=== PATIENT | female | born 1955 | race Caucasian/White ===

== ENCOUNTER 2016-11-10 17:53 | Emergency (ER) | payer BC ==
[~2016-11-10 17:53] MED LIST: CZR50 PO; FURO-85 PO; LABE300T PO; NXM/40 PO; POTA10CA28 PO
[2016-11-14] MEDS ORDERED: ZNT150 PO (17:39)
[2016-11-14] MEDS ORDERED: ALL180 PO (17:39)
[2017-03-09] MEDS ORDERED: AMLO-110 PO (09:15)
[2017-03-09] MEDS ORDERED: HYOS1TAB PO (09:15)
== END 2016-11-10 18:00 | disposition left against medical advice (07) ==
LOC: C.EDB 17:54
DX: R10.9 Unspecified abdominal pain (principal)

== ENCOUNTER 2016-11-11 10:44 | Inpatient (IN) | payer BC ==
[~2016-11-11] VITALS: Ht 170.2 cm; Wt 103.4 kg
--- NOTE | 2016-11-11 11:15 | EMERGENCY ROOM VISIT NOTE ---
History Report prepared by David: Alessandro Clark Under the Supervision of: Dr. Steffany Gomes D.O. First contact with patient: 10:53 Chief Complaint: ABDOMINAL PAIN Stated Complaint: STOMACH PAIN History of Present Illness The patient is a 61 year old female who presents to the Emergency Room with complaints of persistent abdominal pain beginning 3 days ago. The patient was here yesterday but left before being seen. She notes she has had hernias before , and that her current pain feels similar. She reports having surgery for small bowel obstruction by Dr. Rincno, but it was noted there were no obstruction during surgery. Her gallbladder was removed at this time. She notes the next day , she required emergency surgery because of bowel issues that occurred during surgery from the previous day. The patient notes that about 1 year later, she had abdominal surgery for hernias. She states she still has her appendix. The patient denies having any fevers, chills, nausea, vomiting, diarrhea, or leg cramping or swelling. She admits to some shortness of breath with walking because she feels pressure in her abdomen. She notes she feels her abdomen is distended. The patient has been having normal bowel movements recently. Source of History: patient Onset: 3 days ago Position: abdomen Quality: other (abdominal pain) Timing: other (persistent) Associated Symptoms: + SOB, No chills, No diarrhea, No fevers, No nausea, No vomiting Note: Patient also denies leg cramping or swelling. Review of Systems See HPI for pertinent positives & negatives. A total of 10 systems reviewed and were otherwise negative. Past Medical & Surgical Medical Problems: (1) Diverticulosis (2) ENTERITIS. PARTIAL SMALL BOMEL OBSTRUCTION (3) GERD (gastroesophageal reflux disease) (4) Herpes zoster (5) Hyperlipidemia (6) Hypertension (7) Incisional hernia (8) Partial small bowel obstruction (9) Vocal cord nodule Surgical Problems: (1) History of colonoscopy Family History Heart disease Social History Smoking Status: Never Smoker Alcohol Use: none Drug Use: none Marital Status: Housing Status: lives with significant other Occupation Status: employed Current/Historical Medications Scheduled Esomeprazole Magnesium (Nexium), 40 MG PO QAM Furosemide (Lasix), 40 MG PO QAM Labetalol (Normodyne), 300 MG PO BID Losartan Potassium (Losartan Potassium), 50 MG PO BID Potassium Chloride (Micro-K Ext Rel), 10 MEQ PO BID Allergies Coded Allergies: Morphine (Verified Allergy, Mild, HIVES, 11/11/16) Physical Exam Vital Signs Date Time Temp Pulse Resp B/P Pulse Ox O2 Delivery O2 Flow Rate FiO2 11/11/16 15:33 66 16 213/115 100 Nasal Cannula 2.0 11/11/16 15:00 69 25 199/91 100 Nasal Cannula 2.0 11/11/16 14:48 70 17 220/120 97 Nasal Cannula 2.0 11/11/16 14:41 63 15 205/91 97 Nasal Cannula 2.0 11/11/16 14:07 70 25 205/105 99 Nasal Cannula 2.0 11/11/16 13:51 64 11/11/16 13:47 64 11/11/16 13:46 68 18 223/121 87 Room Air 11/11/16 13:31 211/85 11/11/16 13:30 66 20 224/94 90 Room Air 11/11/16 10:50 36.5 72 18 126/76 97 Room Air Physical Exam HEENT: Head - normocephalic and atraumatic Pupils are equal, round, and reactive to light. Extraocular eye muscles are intact, and sclera are anicteric. Nose - moist nasal mucosa without discharge. Mouth - moist buccal mucosa. Oropharynx is nonerythematous and there is no tonsillar exudate or edema noted. Neck: Supple; no JVD, nuchal rigidity, cervical lymphadenopathy. Heart: Regular rate and rhythm. There is a normal S1 and S2 with no murmurs, clicks, or gallops appreciated. Lungs: Clear to auscultation bilaterally with no wheezes, rales, or rhonchi. Abdomen: Significant abdominal distension. Hypoactive bowel sounds. Significant tympany with percussion. Right and left upper quadrant tenderness to palpation, and epigastric tenderness to palpation. Extremities: No evidence of cyanosis, clubbing, or edema. There are easily palpable peripheral pulses. Skin: warm and dry with good turgor and no rashes. Medical Decision & Procedures ER Provider Diagnostic Interpretation: Radiology results as stated below per my review and the radiologist's interpretation: CHEST AND ABDOMEN 2 VIEWS FINDINGS: The lungs are clear. The heart is stable in size. No pleural effusions. No pneumothorax. Mild left deviation of the upper trachea favors an enlarged thyroid gland. No pneumoperitoneum. No pneumatosis. Prior cholecystectomy. No renal calculi. No dilated loops of bowel to suggest an obstruction. Multiple pelvic phleboliths are again noted. Moderate stool within the colon. IMPRESSION: 1. No acute process within the chest. 2. No evidence for bowel obstruction. 3. Moderate stool within the colon. Electronically signed by: Santiago Caldera M.D. 11/11/2016 11:56 AM Dictated Date/Time: 11/11/2016 11:53 AM ABDOMEN AND PELVIS CT WITH IV CONTRAST FINDINGS: Trace bilateral pleural effusions. No pneumoperitoneum. No pneumatosis. Small hiatus hernia. A few subcentimeter hypodense lesions within the liver which are too small to characterize. The largest lesion measures 6 mm within the left hepatic lobe. These remain stable. Cholecystectomy. The pancreas, spleen, right adrenal gland, and kidneys are unremarkable. Stable 12 mm nodule within the left adrenal gland. No retroperitoneal lymphadenopathy. There is a anterior abdominal wall mesh. A 2.1 cm fibroid at the uterine fundus, unchanged. The bladder is unremarkable. Trace pelvic free fluid. No retroperitoneal lymphadenopathy. Mild infiltration within the central mesentery. Multiple thickened loops of small bowel within the midabdomen. Borderline distended fluid-filled loops of proximal small bowel could be due to the interval is a low-grade partial small bowel obstruction. Normal appendix. Colonic diverticulosis. IMPRESSION: 1. Multiple thickened loops of small bowel seen within the midabdomen which is similar to the prior study. This is consistent with a nonspecific enteritis. There is associated infiltration of the mesentery. 2. A few loops of proximal small bowel are fluid-filled and slightly prominent which could be due to a low-grade partial small bowel obstruction from the thickened loops of small bowel. 3. Trace bilateral pleural effusions. 4. Additional findings as described above. Electronically signed by: Santiago Caldera M.D. 11/11/2016 1:00 PM Dictated Date/Time: 11/11/2016 12:55 PM Laboratory Results Test 11/11/16 11:05 11/11/16 11:18 11/11/16 15:31 11/11/16 15:35 Urine Color YELLOW Urine Appearance CLEAR (CLEAR) Urine pH 6.5 (4.5-7.5) Urine Specific Thorp 1.007 (1.000-1.030) Urine Protein NEG (NEG) Urine Glucose (UA) NEG (NEG) Urine Ketones NEG (NEG) Urine Occult Blood NEG (NEG) Urine Nitrite NEG (NEG) Urine Bilirubin NEG (NEG) Urine Urobilinogen NEG (NEG) Urine Leukocyte Esterase NEG (NEG) Total Bilirubin 0.3 mg/dl (0.2-1) Direct Bilirubin mg/dl (0-0.2) Aspartate Amino Transf (AST/SGOT) 42 U/L (15-37) Alanine Aminotransferase (ALT/SGPT) 55 U/L (12-78) Alkaline Phosphatase 98 U/L (45-117) Total Protein 7.0 gm/dl (6.4-8.2) Albumin 3.4 gm/dl (3.4-5.0) Chemistry Specimen Hemolysis Hepatitis C Antibody Screen NEG (NEG) Erythrocyte Sedimentation Rate 29 mm/hr (0-21) C-Reactive Protein 1.11 mg/dl (0-0.29) Laboratory results per my review. Medications Administered Medications (Trade) Dose Ordered Sig/Linda Route Start Time Stop Time Status Last Admin Dose Admin Hydromorphone HCl (Dilaudid Inj) 2 mg NOW STAT IV 11/11/16 12:17 11/11/16 12:18 DC 11/11/16 12:38 2 MG Ondansetron HCl 4 mg 4 mg NOW STAT IV 11/11/16 12:17 11/11/16 12:18 DC 11/11/16 12:36 4 MG Sodium Chloride (Nss 1000ml) 1,000 ml @ 200 mls/hr Q5H STAT IV 11/11/16 12:18 11/11/16 17:17 DC 11/11/16 12:36 200 MLS/HR Labetalol HCl 20 mg 20 mg NOW STAT IV 11/11/16 14:28 11/11/16 14:30 DC 11/11/16 14:47 10 MG Sodium Chloride 1,000 ml @ 75 mls/hr [id number] IV 11/11/16 15:30 12/11/16 15:29 11/12/16 04:32 75 MLS/HR Ondansetron HCl/ Dextrose (Zofran Inj/D5 50ml) 54 ml @ 200 mls/hr Q4H PRN IV 11/11/16 15:30 12/11/16 15:29 11/12/16 05:30 200 MLS/HR Hydralazine HCl (HydrALAZINE INJ) 10 mg Q6H PRN IV. 11/11/16 15:30 11/11/16 18:30 DC 11/11/16 15:44 10 MG Procedure Medications Ordered: 1217: Ordered Zofran Inj 4 mg IV, and Dilaudid Inj 2 mg IV. 1218: Ordered NSS 1,000 ml @ 200 mls/hr IV. 1428: Ordered Labetalol HCl 20 mg IV. ED Course 1101: Past medical records reviewed. The patient was evaluated in room C1B. A complete history and physical exam was performed. An IV lock was initiated and labs are drones above. The patient had an obstruction series as described above. 1216: The patient now wants something for pain. 1217: Ordered Zofran Inj 4 mg IV, and Dilaudid Inj 2 mg IV. She will go for CT scan of the abdomen/pelvis. 1218: Ordered NSS 1,000 ml @ 200 mls/hr IV. 1335: I updated the patient. She was diaphoretic, lightheaded, near-syncopal, and vomiting bile. I suggested that we place an NG tube, the patient refused stating that she had previous trauma to her larynx as a result of NG tube placement. 1420: Discussed the patient's case with Dr. Dominic Molina. The patient will be evaluated for further management. 1428: Ordered Labetalol HCl 10 mg IV. Medical Decision The patient is a 61 year old female who presents to the Emergency Room with complaints of persistent abdominal pain beginning 3 days ago. Differential Diagnoses: Small bowel obstruction, incarcerated abdominal wall hernia, colitis, gastritis, and pancreatitis. Laboratory Interpretations: Normal white count; stable H&H; glucose 151; normal renal function and LFTs; normal lipase; urine is normal. This is a 61-year-old female patient who presents to emergency department with increasing abdominal pain, distention and vomiting. The patient has a long history of previous intra-abdominal surgeries, hernias, and bowel obstructions. Her physical exam was consistent with an acute bowel obstruction. However, x- ray was unremarkable. CT scan showed some bowel wall thickening, mesenteric stranding, and early partial small bowel obstruction. The patient was significantly hypertensive after an episode of vomiting. She was given labetalol which lowered her blood pressure slightly. She did vomit this a.m. after taking her morning meds. I discussed the case with her PCP and he will evaluate for further care. Consults Time Called: 1320 Consulting Physician: Dr. Rincon, [facility] [place] Returned Call: Call not returned. Additional Consults: Time Called: 1355 Consulted Physician: Dr. Dominic Molina, [facility], [place] Returned Call: 1420 Additional Comments: Discussed the patient's case with Dr. Dominic Molina. The patient will be evaluated for further management. Impression Primary Impression: Partial small bowel obstruction Additional Impression: HTN (hypertension) Scribe Attestation The scribe's documentation has been prepared under my direction and personally reviewed by me in its entirety. I confirm that the note above accurately reflects all work, treatment, procedures, and medical decision making performed by me. Departure Information Dispostion Being Evaluated By Hospitalist Referrals Papi See M.D. (PCP) Patient Instructions [facility] Problem Qualifiers
[2016-11-11 11:40] LABS: URINE APPEARANCE CLEAR (CLEAR); URINE BILIRUBIN NEG (NEG); URINE COLOR YELLOW; URINE NITRITE NEG (NEG); URINE PH 6.5 (4.5-7.5); URINE SPECIFIC GRAVITY 1.007 (1.000-1.030); UROBILINOGEN NEG (NEG)
[2016-11-11 11:46] LABS: BASO % 0.3 %; BASO ABS # 0.02 K/uL (0-0.2); COMPLETE YES; EOS % 1.8 %; HEMATOCRIT 37.9 % (37-47); IG% 0.2 %; LYMPH ABS # 1.23 K/uL (1.2-3.4); MEAN CELL VOLUME 85.2 fL (80-100); MEAN CORPUSCULAR HEMOGLOBIN 28.3 pg (25-34); MEAN CORPUSCULAR HGB CONC 33.2 g/dl (32-36); MEAN PLATELET VOLUME 9.5 fL (7.4-10.4); MONO % 4.9 %; NEUT % 73.8 %; PLATELET COUNT 272 K/uL (130-400); RED BLOOD COUNT 4.45 M/uL (4.2-5.4); WHITE BLOOD COUNT 6.49 K/uL (4.8-10.8)
--- NOTE | 2016-11-11 11:57 | DIAGNOSTIC IMAGING REPORT ---
CHEST AND ABDOMEN 2 VIEWS HISTORY: Generalized abdominal pain. COMPARISON: Chest and abdominal series 03/21/2016. Abdomen and pelvis CT 03/21/2016. FINDINGS: The lungs are clear. The heart is stable in size. No pleural effusions. No pneumothorax. Mild left deviation of the upper trachea favors an enlarged thyroid gland. No pneumoperitoneum. No pneumatosis. Prior cholecystectomy. No renal calculi. No dilated loops of bowel to suggest an obstruction. Multiple pelvic phleboliths are again noted. Moderate stool within the colon. IMPRESSION: 1. No acute process within the chest. 2. No evidence for bowel obstruction. 3. Moderate stool within the colon. Electronically signed by: Santiago Caldera M.D. 11/11/2016 11:56 AM Dictated Date/Time: 11/11/2016 11:53 AM
[2016-11-11 12:01] LABS: MANUAL MICROSCOPIC REQUIRED? NO; REVIEW REQ? NO
[2016-11-11 12:02] LABS: ALKALINE PHOSPHATASE 98 U/L (45-117); ALT/SGPT 55 U/L (12-78); AST/SGOT 42 U/L (15-37); BLOOD UREA NITROGEN 12 mg/dl (7-18); BUN/CREATININE RATIO 15.6 (10-20); CALCIUM 8.9 mg/dl (8.5-10.1); CARBON DIOXIDE 28 mmol/L (21-32); CHLORIDE 107 mmol/L (98-107); CREATININE 0.79 mg/dl (0.60-1.20); GLUCOSE 151 mg/dl (70-99); POTASSIUM 4.6 mmol/L (3.5-5.1); SODIUM 142 mmol/L (136-145)
[2016-11-11] MEDS ORDERED: ONDANSETRON INJ 2 MG/ML 2 ML VIAL IV STA (12:17)
[2016-11-11] MEDS ORDERED: HYDROmorphone INJ 2 MG/ML SYR/VIAL IV STA (12:17)
[2016-11-11] MEDS ORDERED: SODIUM CHLORIDE 0.9% 1000ML 1,000 ML IV STA (12:18)
[2016-11-11] MEDS ORDERED: OPTIRAY 320 IV PRN (12:30)
--- NOTE | 2016-11-11 13:02 | DIAGNOSTIC IMAGING REPORT ---
ABDOMEN AND PELVIS CT WITH IV CONTRAST CT DOSE: 1240.00 mGy.cm HISTORY: Upper abdominal pain. TECHNIQUE: Multiaxial CT images of the abdomen and pelvis were performed following the use of intravenous contrast. COMPARISON STUDY: Abdomen and pelvis CT 03/21/2016. FINDINGS: Trace bilateral pleural effusions. No pneumoperitoneum. No pneumatosis. Small hiatus hernia. A few subcentimeter hypodense lesions within the liver which are too small to characterize. The largest lesion measures 6 mm within the left hepatic lobe. These remain stable. Cholecystectomy. The pancreas, spleen, right adrenal gland, and kidneys are unremarkable. Stable 12 mm nodule within the left adrenal gland. No retroperitoneal lymphadenopathy. There is a anterior abdominal wall mesh. A 2.1 cm fibroid at the uterine fundus, unchanged. The bladder is unremarkable. Trace pelvic free fluid. No retroperitoneal lymphadenopathy. Mild infiltration within the central mesentery. Multiple thickened loops of small bowel within the midabdomen. Borderline distended fluid-filled loops of proximal small bowel could be due to the interval is a low-grade partial small bowel obstruction. Normal appendix. Colonic diverticulosis. IMPRESSION: 1. Multiple thickened loops of small bowel seen within the midabdomen which is similar to the prior study. This is consistent with a nonspecific enteritis. There is associated infiltration of the mesentery. 2. A few loops of proximal small bowel are fluid-filled and slightly prominent which could be due to a low-grade partial small bowel obstruction from the thickened loops of small bowel. 3. Trace bilateral pleural effusions. 4. Additional findings as described above. Electronically signed by: Santiago Caldera M.D. 11/11/2016 1:00 PM Dictated Date/Time: 11/11/2016 12:55 PM
[2016-11-11] MEDS ORDERED: LABETALOL HCL IV 5 MG/ML 20ML IV STA (14:28)
[2016-11-11] MEDS ORDERED: HYDROmorphone INJ 1 MG/ML SYR IV PRN (15:30)
[2016-11-11] MEDS ORDERED: HydrALAZINE HCL 20 MG/ML VIAL IV. PRN (15:30)
[2016-11-11] MEDS ORDERED: PANTOprazole INJ 40 MG in SYRINGE 0 ML IV ONE (16:00)
[2016-11-11 16:15] VITALS: O2SAT 95; Ht 170.2 cm; Wt 103.4 kg
--- NOTE | 2016-11-11 16:49 | HISTORY & PHYSICAL EXAMINATION ---
DATE OF ADMISSION: 11/11/2016 HISTORY OF PRESENT ILLNESS: A 61-year-old female admitted through the Emergency Room with severe abdominal pain that has been going on for 3 days and findings on her CT scan consistent with enteritis and partial small-bowel obstruction. The patient with multiple medical problems including arterial hypertension, diastolic congestive heart failure with episodes of flash pulmonary edema, mostly occurred after anesthesia for surgical procedures. Otherwise, her congestive heart failure is compensated. She has had cardiology evaluation in the past. She also has gastroesophageal reflux and known Davis esophagus. She has had multiple hospitalizations and emergency room visits and GI evaluations in the past. She usually presents with severe mid abdominal pain. At times associated with nausea and vomiting. Repeated CT scans over the last couple of years showed inflammation of the wall of the small intestine in different areas and also inflammation in the mesenteric area. The exact etiology of these findings has not been determined in the past. The patient has had prior surgery for small bowel obstruction. She also had a cholecystectomy. She had a post-cholecystectomy perforation of her small intestine that required repair. The patient was seen in the Emergency Room yesterday, but she could not stay because there was a long wait, so she went home. She has been complaining of acute onset of abdominal pain which started about 3 days ago. The pain that she presents with is usually very severe, debilitating, in the mid abdominal area, not always associated with nausea or vomiting. She has had no fever, no chills. She has not had any problem with her bowel movements. She continues to have bowel movements as usual. The patient was evaluated in the Emergency Room by Dr. Gomes. Multiple tests were done. A CT scan of the abdomen and pelvis showed inflammation of the mid portion of the small intestine and also of the mesentery. I saw the patient in the Emergency Room. She is being admitted for further evaluation. PAST MEDICAL HISTORY: 1. Arterial hypertension. Longstanding. She is on a multidrug regimen with labetalol and losartan and she is also on Lasix. 2. In 2002, she required hospitalization for a pansinusitis and required IV antibiotics. 3. Back in the 1989, she had persistent rhinorrhea. She was evaluated by Dr. Dawkins and she was diagnosed with a CSF leak. She was referred to [facility] and required surgery. 4. Prior episodes of small-bowel obstruction as noted above. She has required surgery back in 2014. 5. Prior cholecystectomy. 6. Post-cholecystectomy complication with perforation of the small bowel, required additional surgery. 7. Because of her abdominal pain, she has had GI evaluations in the past. She has been seen by Dr. Rodas. She had an EGD done, she had a colonoscopy also had a small bowel x-rays. She does have evidence of Davis esophagus. 8. Right breast biopsy about 18 years ago. 9. Stereotactic biopsy of the left breast in 2012 was benign. 10. Left shoulder pain in [address] Brock and did not require any surgery. 11. Back in 2014, she was detected to have a vocal cord polyp and she had surgery and it was benign. Surgery was endoscopic. SOCIAL HISTORY: She is , had 2 children. There is no history of any smoking, no alcohol or drugs. 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 FAMILY HISTORY: Her father at age 33, had heart disease, not sure of the exact etiology. Her mother is in her mid 90s. She is treated for arterial hypertension, atrial fibrillation and she does have valvular heart disease with aortic stenosis. She had 2 brothers and 3 sisters. One sister recently in her early 70s, she had end-stage lung disease. History is also significant for arterial hypertension. One son was diagnosed with lymphoma and treated and he is in remission. ALLERGIES: 1. INTOLERANCE TO MORPHINE. MEDICATIONS ON ADMISSION: All as noted on her home medication list. REVIEW OF SYSTEMS: She denied any headache. No dizziness, no lightheadedness. No earache, sore throat or neck pain. No chest pain. No shortness of breath. She is having severe abdominal pain. She became nauseous and had one episode of vomiting in the Emergency Room. She has not had any problem with her bowel movements. No blood in her stool. No problem urinating. No pain in her back or extremities. PHYSICAL EXAMINATION: GENERAL: Well developed, complaining of severe abdominal pain. Her recorded weight was 103.4 kilograms, height 170.2 cm, BMI 34.7. VITAL SIGNS: On arrival to the Emergency Room, her blood pressure was 126/76, pulse 72, respirations 18, temperature 36.5, oxygen saturation 97% on room air. Subsequently, she was becoming nauseous and her blood pressure increased markedly. Dr. Gomes gave her a dose of labetalol 20 mg IV. SKIN: Warm and dry. There is no rash. HEENT: No mucosal abnormalities. NECK: Supple without lymph node enlargement. No JVD. Normal carotid pulses. No carotid bruit. CHEST: Normal. HEART: Regular heart sounds without any evident murmur, rub, or gallop. LUNGS: Clear. ABDOMEN: Very tender. Really difficult to examine because of the severity of her tenderness. Some guarding. Difficult to appreciate any organomegaly or masses. Decreased bowel sounds. BACK: No spinal tenderness. EXTREMITIES: No edema, clubbing, or cyanosis. No joint or muscle tenderness. Good pulses. NEUROLOGIC: She is alert and oriented without evidence of any lateralized deficits. ADMISSION LABORATORY TESTS: WBC count 6490, hemoglobin 12.6, hematocrit 37.9, platelet count 272,000. Sodium 142, potassium 4.6, chloride 107, CO2 28, BUN 12, creatinine 0.79, glucose 151. Calcium 8.9, total bilirubin 0.3, AST 42, ALT 55, alkaline phosphatase 98, total protein 7.0, albumin 3.4, lipase 141. Urinalysis was completely normal. IMAGING STUDIES: Included a chest x-ray and abdominal x-rays. There was no acute process in her chest. No evidence of any bowel obstruction. Moderate stool within the colon noted. Her CT scan of the abdomen and pelvis showed multiple abnormalities. She had multiple thickened loops of small intestine within the mid abdomen which is thought to be similar to prior study from 2016. Thought to be nonspecific enteritis. There was also associated infiltration of the mesentery. Few proximal small bowel were fluid filled and slightly prominent, suspicious for low grade partial small-bowel obstruction. Bilateral pleural effusions noted. ASSESSMENT: 1. Recurrent enteritis with severe debilitating abdominal pain. 2. Very slight suspicion for partial small-bowel obstruction. 3. Hypertensive cardiovascular disease with diastolic dysfunction. 4. Arterial hypertension. 5. Known Davis esophagus. 6. Obesity. 7. History of cholecystectomy. 8. History of small bowel perforation after her cholecystectomy required repair. PLAN: The patient is admitted to medical bed. Resuscitation level 1. All her laboratory tests were ordered. Started on IV fluid. IV Zofran. IV Dilaudid. IV Protonix. I am not really clear why she is having these recurrent episodes of enteritis with inflammation in the mesentery. This has happened and documented on prior CT scans. Surgical consultation was requested from Dr. Rincon, he has seen her before and he did her prior surgeries. GI consultation was requested from Dr. Mas. I spoke with him and requested a consultation. At this point, will control her symptoms. Monitor her condition. Dr. Mas recommended ordering tests looking for any possible vasculitis. I did order the tests. Also, we have to consider getting a mesenteric Doppler in the future. I did not order it for today because of the severity of the pain, I did not think that this can be done. [id number]
[2016-11-11 17:00] VITALS: BP 190/96; PULSE 77; TEMP 36.7; O2SAT 98
[2016-11-11 17:26] VITALS: O2SAT 98
[2016-11-11 18:42] LABS: PARTIAL THROMBOPLASTIN RATIO 1.2; PROTHROMBIN TIME (PATIENT) 10.6 SECONDS (9.0-12.0)
[2016-11-11] MEDS: ONDANSETRON INJ 8 MG in DEXTROSE 5% 50ML 50 ML IV PRN ×2 (18:55→23:23)
[2016-11-11] MEDS: HydrALAZINE HCL 20 MG/ML VIAL IV. PRN (18:56)
[2016-11-11] MEDS: SODIUM CHLORIDE 0.9% 1000ML 1,000 ML IV SCH (18:57)
[2016-11-11] MEDS: HEPARIN SOD 5000 UNIT/0.5 ML CARP SQ SCH (21:00)
[2016-11-11] MEDS: LABETALOL HCL 300 MG TAB PO SCH (22:01)
[2016-11-11] MEDS: LOSARTAN POTASSIUM 50 MG TAB PO SCH (22:02)
[2016-11-11 23:30] VITALS: BP 157/81; PULSE 96; TEMP 36.7; O2SAT 98
[2016-11-12] MEDS: KETOROLAC TROMETHAMINE 15 MG/ML VIAL IV PRN ×2 (00:12→06:16)
[2016-11-12] MEDS: SODIUM CHLORIDE 0.9% 1000ML 1,000 ML IV SCH ×2 (04:32→17:55)
[2016-11-12] MEDS: ONDANSETRON INJ 8 MG in DEXTROSE 5% 50ML 50 ML IV PRN (05:30)
[2016-11-12 06:37] LABS: BASO % 0.3 %; BASO ABS # 0.02 K/uL (0-0.2); COMPLETE YES; EOS % 0.4 %; HEMATOCRIT 34.9 % (37-47); IG% 0.4 %; LYMPH % 18.9 %; LYMPH ABS # 1.47 K/uL (1.2-3.4); MEAN CELL VOLUME 84.9 fL (80-100); MEAN PLATELET VOLUME 9.1 fL (7.4-10.4); MONO % 8.2 %; NEUT % 71.8 %; PLATELET COUNT 240 K/uL (130-400); RED BLOOD COUNT 4.11 M/uL (4.2-5.4); WHITE BLOOD COUNT 7.79 K/uL (4.8-10.8)
[2016-11-12 07:05] VITALS: BP 130/76; PULSE 80; TEMP 36.9; O2SAT 93
[2016-11-12 07:29] LABS: BUN/CREATININE RATIO 16.7 (10-20); CALCIUM 8.6 mg/dl (8.5-10.1); CREATININE 0.85 mg/dl (0.60-1.20); POTASSIUM 3.5 mmol/L (3.5-5.1)
[2016-11-12] MEDS: HEPARIN SOD 5000 UNIT/0.5 ML CARP SQ SCH ×2 (08:22→20:55)
[2016-11-12] MEDS: LABETALOL HCL 300 MG TAB PO SCH ×2 (08:22→20:56)
[2016-11-12] MEDS: LOSARTAN POTASSIUM 50 MG TAB PO SCH (08:22)
[2016-11-12] MEDS: PANTOprazole INJ 40 MG in SYRINGE 0 ML IV SCH (11:06)
--- NOTE | 2016-11-12 11:32 | PROGRESS NOTE ---
DATE: 11/12/2016 DATE: 11/12/2016. SUBJECTIVE: A 61-year-old female admitted with severe recurrent abdominal pain with evidence of enteritis, which is nonspecific. She also has inflammation of the mesentery. She has had multiple similar episodes in the past and she has had documented abnormality as noted on different CT scans of the abdomen and pelvis in the past. The patient was admitted. Pain controlled. She had a prior reaction to morphine, so she was given Dilaudid. The Dilaudid is helpful but caused her some lightheadedness, so I did order Toradol on a temporary basis. She also was given Zofran for nausea. The patient remains afebrile. She has no recurrent vomiting. Her nausea is under control. Denied any chest pain, no shortness of breath. Her abdominal pain has markedly improved, but she still have some pain in the mid abdominal region. She has not had a bowel movement but she had 3 bowel movements prior to her admission. PHYSICAL EXAMINATION: GENERAL: Well-developed, in no acute distress. She is markedly improved compared to yesterday. VITAL SIGNS: Blood pressure 130/76, pulse 80, respiration 16, temperature 36.9, oxygen saturation 93% on room air. SKIN: Warm and dry. No rash. HEAD, EYES, EARS, NOSE, AND THROAT: No mucosal abnormalities. NECK: No adenopathy. No JVD. HEART: Regular heart sounds. LUNGS: Clear. ABDOMEN: Soft. She does have slight tenderness in the mid abdominal region. There is no guarding, no rebound. No organomegaly or masses. BACK: No spinal tenderness. EXTREMITIES: No edema, clubbing, or cyanosis. LABORATORY TESTS: WBC count 7,790, hemoglobin 11.5, hematocrit 34.9, platelet count 240,000. Sodium 144, potassium 3.5, chloride 108, CO2 27, BUN 14, creatinine 0.85, glucose 105, calcium 8.6, lipase 29. Amylase 133. Her C-reactive protein is elevated to 1.11, the normal being up to 0.29. Her sedimentation rate was also slightly elevated to 29. ASSESSMENT: 1. Nonspecific enteritis. 2. Severe intractable abdominal pain. 3. Arterial hypertension. 4. Diastolic dysfunction. 5. Known Davis's esophagus. PLAN: 1. Continuing her IV fluids. 2. Continue pain control and Zofran for nausea. 3. I advanced her diet to clear liquid diet. 4. GI consultation was requested from Dr. Mas. 5. She tells me that Dr. Rincon saw her this morning. Will monitor her condition. 6. We will wait for Dr. Mas's recommendation. I also ordered a mesenteric Doppler to be done tomorrow.
[2016-11-12] MEDS ORDERED: ACETAMINOPHEN 325 MG TAB PO PRN (14:00)
--- NOTE | 2016-11-12 14:48 | PROGRESS NOTE ---
DATE: 11/12/2016 GASTROENTEROLOGY CONSULTATION NOTE REQUESTING PROVIDER: Papi Birmingham MD CHIEF COMPLAINT: Epigastric central abdominal pain, recurrent. HISTORY OF PRESENT ILLNESS: This is a 61-year-old white female, who presents for acute onset of epigastric and periumbilical central abdominal pain. This is described as an 8-9/10 pain. This occurred acute in onset. However, the patient has had several episodes of these events over the past couple of years with some inflammatory features on CT scan. She has also had a workup that included a prior upper endoscopy. She has not had a colonoscopy recently. The upper endoscopy was performed at our outpatient center at [facility] however I do not currently have the records for this. The pain has no specific cause other than perhaps food may have prompted this attack. The patient had seen Dr. Rodas for which gastroparesis was identified by gastric emptying scan. She sees Dr. Rodas in GI clinic. The patient had a cholecystectomy in 2014, which was performed for her abdominal pain. According to the patient, the gallbladder was not initially thought to be an etiology. However, during the surgery it was believed that the gallbladder had an abnormal pattern and was removed. There was a subsequent surgery a day later for concern of a possible bowel perforation, although it was unclear if this was identified after exploration. The patient denies any diarrhea or constipation and does not report hematemesis, coffee-ground emesis, melena or bright red blood per rectum. Although she did not have vomiting she did have nausea that accompanied the abdominal pain. She does use Advil 2 tablets daily, approximately five times weekly at bedtime for joint stiffness. During her colonoscopy by Dr. Figueroa which may have been a few years ago, she believes there were polyps identified. She had an upper endoscopy, she describes as having identified Davis's esophagus. Her colonoscopy may have been five years ago. PAST MEDICAL HISTORY AND SURGICAL HISTORY: Includes; cholecystectomy, ventral wall hernia repairs, vocal cord nodule removal and sinus surgery. Past medical history also includes; hypertension, CSF leak due with persistent rhinorrhea, episodes of possible partial small-bowel obstruction, cholecystectomy and left breast biopsy. It is noted that during any type of endotracheal manipulation or intubation, the patient apparently goes into a rapid flash pulmonary edema that responds promptly to Lasix. She does not recall any untoward effects with her upper endoscopy when performed at the outpatient center. The patient denies any lip swelling or rashes during these events. SOCIAL HISTORY: The patient is with 2 children; one son had non-Hodgkin's lymphoma diagnosed at age 36. She denies tobacco or alcohol use. 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 FAMILY HISTORY: Significant for mother with diverticulitis that required colostomy that was eventually reversed. There is no family history either immediate or extended for Crohn's disease or chronic ulcerative colitis. There is no history of colorectal cancer. The patient is postmenopausal by approximately 15 years. There is a family history for heart disease and hypertension. ALLERGIES: THE PATIENT IS INTOLERANT TO MORPHINE, THAT IT CAUSED A RASH. DURING LAST EVENING'S ATTEMPT FOR PAIN CONTROL, SHE WAS GIVEN DILAUDID WHICH APPARENTLY MADE HER CONFUSED AND MARKEDLY INCREASED HER BLOOD PRESSURE. HOME MEDICATIONS: Include; Losartan, Lasix, Zofran, Toradol, labetalol, pantoprazole and subQ heparin (inpatient). REVIEW OF SYSTEMS: Otherwise noncontributory, based on 14-point exam except for the mentioned above. PHYSICAL EXAMINATION: VITAL SIGNS: The patient is currently afebrile at 36.9, blood pressure 130/76, respirations 16, heart rate 80, she is 93% on room air. During last evening, at 5:00 she was 190/96 with blood pressure and earlier just after admission, she was found to have blood pressures of 224/94 with slightly increased respiratory rate, although heart rate was never markedly elevated even during these hypertensive events. GENERAL: The patient is awake, alert and oriented x3, accompanied by her and her son. She is resting comfortably in bed, although with abdominal palpation she does have pain. HEENT: Sclerae are anicteric, conjunctiva is moist. Oral mucosa is moist without plaques or exudates. HEART: Normal S1, S2. There is a faint systolic ejection murmur. LUNGS: Clear to auscultation without rales, rhonchi or wheezes. There are no crackles noted. ABDOMEN: Soft, tender. There are multiple abdominal incisions, one that is vertical. Some of the pain seems to be in this vicinity as well as superior to it in the epigastrium and to the left and right. On abdominal palpation maneuvers, the patient has a negative Carnett's sign suggesting that the pain is from a visceral location and not superficial on the abdominal wall. There are no significant abdominal wall hernias. There is no evidence of ascites or shifting dullness although superficial pain does elicit tenderness. There is increased tenderness in the mid abdomen with palpation. EXTREMITIES: Without clubbing or cyanosis. There is trace edema bilaterally. RECTAL: Deferred. LABORATORIES: I did have an opportunity to review laboratory studies; that on admission showed a white count of 6.9, hemoglobin 12.6, MCV 85 and platelets 272,000. Today's labs are essentially stable with slight drift in her hemoglobin to 11.5. There are no reports of melena or bright red blood per rectum. She does have an elevated sed rate of 29 and a CRP that is elevated at 1.11. Lipase was normal on both days at 141 and 113 respectively with a normal amylase today at 29. BUN and creatinine are normal at 14 and 0.8. INR is 1.0. HCV is negative. The patient has an DAREK and ANCA pending at this time. Urinalysis showed no evidence of urinary tract infection, proteinuria or hematuria. I reviewed the imaging studies and discussed the case with the radiologist shock absorption floor layer. IMPRESSION AND PLAN: Mrs. Espinal is a 61-year-old female, with recurrent acute attacks of abdominal pain that are centrally located, that have been present for at least [address] The [address] scans, both during this admission as well as prior studies suggest a pattern of inflammation in the small bowel region along with infiltration of the mesentery. There is a component of fat in this area as well as inflammatory features and distortions of the bowel wall that suggest fluid filled loops that may be partially dilated. A partial small-bowel obstruction cannot be excluded. There is no family history of Crohn's disease; however, the recurrent nature of this pattern does raise this as a possibility. Additional possibilities include a small vessel vasculitis and possibly angioedema that is limited to the small bowel mucosa. The location of these changes is in the mid small-bowel region which may be difficult to achieve endoscopically, but I do believe it is worthwhile to attempt to assess the small bowel for any mucosal changes. I made the following recommendations. We will plan for a upper endoscopy/push enteroscopy attempt to evaluate as much of the small bowel as possible. In addition, we would consider small bowel biopsies, particularly if there is any sense of distortion of the villi, dilation, loss of fold or mucosal effacement or any unusual transition zones. The patient is also scheduled for a mesenteric Doppler tomorrow which is very reasonable. If this is unrevealing, then ultimately a CT angiography to assess for smaller vessel anomalies is prudent. In addition, a dedicated traditional barium small bowel follow through series to assess for any transition zones, narrowing dilated loops or mucosal abnormalities would be reasonable, particularly if the endoscopy cannot reach a mucosal abnormality. The possibility of angioedema is raised and she is taking an ARB. A workup for angioedema and C1 esterase deficiency with complement levels may be worthwhile. Additional vasculitis workup with DAREK and ANCA is pending at this time. We will follow closely with you. If all of this workup is unrevealing, empirically it may be worth an attempt to change her blood pressure medicine away from an ALVARADO or ARB and consider an alternate class of drugs. Ultimately an exploratory laparotomy may be necessary, particularly with these focal changes and distortions identified in the mesentery. However, I believe that a neoplastic process is unlikely given the duration of symptoms, lack of weight loss and intermittent pattern to these symptoms. All questions were answered. Thank you for allowing me to participate in the care of this pleasant patient. ARISTEO
[2016-11-12 15:11] VITALS: BP 129/71; PULSE 68; TEMP 36.9; O2SAT 97
--- NOTE | 2016-11-12 16:23 | CONSULTATION REPORT ---
DATE OF CONSULTATION: 11/12/2016 REQUESTING PHYSICIAN: Seen at the request of Dr. Birmingham with what appears to be a partial bowel obstruction. SUMMARY: This is a 61-year-old female who is known to me was admitted through the Emergency Room with severe abdominal pain that had been going on for about 3 days findings consistent with an enteritis or partial small-bowel obstruction. She had been seen in the Emergency Room the day before admitting, but could not stay because it was a long wait so she went home. She started complaining of acute onset of abdominal pain which started about 3 days ago, usually severe debilitating, mid abdomen area, not associated with nausea and vomiting. She had no fever, no chills. Denies any problems in her bowel movement. She continues to have bowel movements regularly. The patient is well known to me and actually the review of her abdominal pain and possible obstruction. The first imaging we had was a plain upper acute abdominal series which showed what appeared to be some incomplete small-bowel obstruction back in 2001. Off and on she has had multiple evaluations for abdominal pain and extensive workup. She was seen in 2014 where at that time she had CT scanning find which showed a transition point in the mid jejunal area with symptoms compatible with bowel obstruction and there was a question that may be a gallbladder had some pathology that may have associated her trigger some of those. At that time, I did a laparoscopic cholecystectomy, cholangiogram and I ran the small bowel laparoscopically, could not find anything. Unfortunately, one of the graspers punctured a hole in the small bowel that required emergency surgery the next day, taken back and at that time, I did a midline incision, repaired the serosal tear which was in the proximal jejunal area and ran the whole bowel and could not find anything to explain her pathology. She did well from that and actually she came back in about a year later where she had an incisional hernia and she wanted that repaired and we did that a year ago. Her past medical history is positive for arterial hypertension, longstanding. She has a multi drug regime. In fact, every time she has surgery she either goes into congestive heart failure. She has had multiple GI evaluations by Dr. Rodas and Dr. Kate and their group. Socially, she is a pleasant lady who has no history of smoking, she is , has 2 children. 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 Her father at 33 of heart disease. She has 1 son that was treated with lymphoma in the past. ALLERGIES: SHE HAS AN INTOLERANCE TO MORPHINE. REVIEW OF SYSTEMS: Pretty much what is stated in the past episodes and nothing really unchanged except she is deathly afraid of any anesthesia because it would put her in congestive heart failure. PHYSICAL EXAMINATION: GENERAL: As I see her this morning, the patient actually feels fine. She is lying in bed in no acute distress. She is hungry. She wants to go home. VITAL SIGNS: Last vitals showed a temperature of 36.9, pulse 80, respirations 16, blood pressure 130/76, O2 sats 93 on room air. LABORATORY: There is no white count, no left shift, hemoglobin is stable. Sed rate is slightly elevated at 29. BUN 14, creatinine 0.81. C-reactive protein is 1.1. The abdominal exam is completely benign. There is no tenderness, no masses. The hernia repair is solid. The CT findings were reviewed which pretty much is the same area that is persistent in the small bowel dating back to 2001. IMPRESSION: At this point, there is nothing surgically I can add to the patient's care. I certainly do not think a reexploration is indicated. She had a very thorough exploration at the time of surgery 2 years ago and nothing was found and this abdominal pain at presentation goes back at least 15 years. I am anxious to see if any further workup by Dr. Mas may shed some light more in this particular problem. But from the point of view, the patient at this time has no surgical problem and we will follow at any time be available if something more definitive develops.
[2016-11-12 23:20] VITALS: BP 151/75; PULSE 74; TEMP 36.7; O2SAT 93
[2016-11-12 23:22] VITALS: BP 153/73; PULSE 73; TEMP 36.5; O2SAT 96
[2016-11-13] MEDS: SODIUM CHLORIDE 0.9% 1000ML 1,000 ML IV SCH (06:16)
[2016-11-13 06:30] LABS: BASO % 0.2 %; BASO ABS # 0.01 K/uL (0-0.2); COMPLETE YES; HEMATOCRIT 34.2 % (37-47); IG% 0.2 %; LYMPH % 25.5 %; LYMPH ABS # 1.43 K/uL (1.2-3.4); MEAN CELL VOLUME 85.1 fL (80-100); MEAN CORPUSCULAR HEMOGLOBIN 27.1 pg (25-34); MEAN CORPUSCULAR HGB CONC 31.9 g/dl (32-36); MONO % 7.7 %; NEUT % 64.4 %; PLATELET COUNT 234 K/uL (130-400); RED BLOOD COUNT 4.02 M/uL (4.2-5.4)
[2016-11-13 06:53] LABS: BUN/CREATININE RATIO 15.1 (10-20); CALCIUM 8.3 mg/dl (8.5-10.1); CREATININE 0.71 mg/dl (0.60-1.20); POTASSIUM 3.6 mmol/L (3.5-5.1)
[2016-11-13 07:10] VITALS: BP 154/70; PULSE 72; TEMP 36.8; O2SAT 98
--- NOTE | 2016-11-13 08:02 | DIAGNOSTIC IMAGING REPORT ---
Mesenteric arterial Doppler DUPLEX MESENTERIC CLINICAL HISTORY: recurrent non-specific enteritis pain. Nausea. TECHNIQUE: Arterial Doppler COMPARISON STUDY: CT dated 11/11/2016 FINDINGS: Normal arterial Doppler of the mesentery. Velocity and waveform characteristics are unremarkable. IMPRESSION: Normal study Electronically signed by: Mukund Patterson M.D. 11/13/2016 8:01 AM Dictated Date/Time: 11/13/2016 8:00 AM
[2016-11-13] MEDS: HEPARIN SOD 5000 UNIT/0.5 ML CARP SQ SCH (08:58)
[2016-11-13] MEDS: LABETALOL HCL 300 MG TAB PO SCH ×2 (08:58→21:12)
[2016-11-13] MEDS: PANTOprazole INJ 40 MG in SYRINGE 0 ML IV SCH (10:48)
[2016-11-13] MEDS ORDERED: LIDOCAINE HCL 2% 2 ML VIAL (20MG/ML) ONE (15:25)
[2016-11-13] MEDS ORDERED: PROPOFOL IV EMULSION 10 MG/ML 20 ML VIAL IV ONE (15:25)
--- NOTE | 2016-11-13 15:30 | Endo History and Physical ---
History & Physical Date of Service: November 13, 2016. Chief Complaint: Abnormal CT abdomen Referring Physician: Dr. Dominic Molina History of Present Illness For EGD Past Medical History Reflux, Hypertension Past Surgical History Hx Cardiac Surgery: No Hx Abdominal Surgery: Yes (LAP MAHSA) Hx Post-Op Nausea and Vomiting: Yes (nausea) Hx Cancer Surgery: No Hx Thoracic Surgery: No Hx Orthopedic: Yes (LEFT ROTATOR CUFF REPAIR,right foot repair of tendons) Hx Urinary Tract Surgery: No Social History Smoking Status: Never Smoker Hx Substance Use: No Hx Alcohol Use: No Allergies Coded Allergies: Morphine (Verified Allergy, Mild, HIVES, 11/11/16) Current Medications Reported Home Medications Medications Dose Route/Sig Max Daily Dose Days Date Category Micro-K Ext Rel (Potassium Chloride) 10 Meq Capcr 10 Meq PO BID 11/24/15 Reported Lasix (Furosemide) 20 Mg Tab 40 Mg PO QAM 11/24/15 Reported Normodyne (Labetalol HCl) 300 Mg Tab 300 Mg PO BID 11/24/15 Reported Losartan Potassium 50 Mg Tab 50 Mg PO BID 11/17/14 Reported Nexium (Esomeprazole Magnesium) 40 Mg Cap 40 Mg PO QAM 05/30/12 Reported Vital Signs Weight (Kilograms): 103.400 Height (Feet): 5 Height (Inches): 7.00 Date Time Temp Pulse Resp B/P Pulse Ox O2 Delivery O2 Flow Rate FiO2 11/13/16 15:05 36.7 77 20 210/105 96 Room Air 11/13/16 08:10 Room Air 11/13/16 07:10 36.8 72 16 154/70 98 Room Air 11/12/16 23:22 36.5 73 16 153/73 96 Room Air 11/12/16 23:20 Room Air 11/12/16 23:20 36.7 74 16 151/75 93 Room Air 11/12/16 15:30 Room Air Physical Exam General Appearance: WD/WN Respiratory/Chest: Respiratory effort: no dyspnea Cardiovascular: Heart Auscultation: RRR Abdomen: Inspection & Palpation: soft (Abnl CT abd for EGD)
[2016-11-13] MEDS ORDERED: LABETALOL HCL IV 5 MG/ML 20ML IV ONE (15:34)
--- NOTE | 2016-11-13 15:47 | Discharge Instructions ---
Endoscopy Patient Instructions Date / Procedure(s) Performed November 13, 2016. Push Enteroscopy Allergy Information Coded Allergies: Morphine (Verified Allergy, Mild, HIVES, 11/11/16) Discharge Date / Findings November 13, 2016. Normal exam into the jejunum Medication Instructions Restart Stopped Medication(s): resume meds Current Inpatient Medications Medications (Trade) Dose Ordered Sig/Linda Route Start Time Stop Time Status Last Admin Dose Admin Ioversol (Optiray 320) 100 ml UD PRN IV 11/11/16 12:30 11/15/16 12:29 Heparin Sodium (Porcine) 5000 unit 5,000 unit Q12 SQ 11/11/16 21:00 12/11/16 20:59 Sodium Chloride 1,000 ml @ 75 mls/hr [id number] IV 11/11/16 15:30 12/11/16 15:29 11/13/16 06:16 75 MLS/HR Ondansetron HCl/ Dextrose (Zofran Inj/D5 50ml) 54 ml @ 200 mls/hr Q4H PRN IV 11/11/16 15:30 12/11/16 15:29 11/12/16 05:30 200 MLS/HR Hydromorphone HCl 1 mg 1 mg Q3H PRN IV 11/11/16 15:30 11/25/16 15:29 Pantoprazole Sodium/Syringe (Protonix Inj/ Syringe) 10 ml @ 5 mls/min DAILY@11 IV 11/12/16 11:00 12/12/16 10:59 11/13/16 10:48 5 MLS/MIN Labetalol HCl (Normodyne Tab) 300 mg BID PO 11/11/16 21:00 12/11/16 20:59 11/13/16 08:58 300 MG Hydralazine HCl (HydrALAZINE INJ) 10 mg Q4H PRN IV. 11/11/16 19:30 12/11/16 19:29 11/11/16 18:56 10 MG Ketorolac Tromethamine (Toradol Inj) 15 mg Q6H PRN IV 11/11/16 18:45 11/16/16 18:44 11/12/16 06:16 15 MG Acetaminophen (Tylenol Tab) 650 mg Q4H PRN PO 11/12/16 14:00 12/12/16 13:59 11/12/16 14:20 650 MG Provider Instructions Activity Restrictions - No exercising or heavy lifting for 24 hours. - Do not drink alcohol the day of the procedure. - Do not drive a car or operate machinery until the day after the procedure. - Do not make any important decisions or sign important papers in 24 hours after the procedure. Following Day: - Return to full activity which may include returning to work/school. Diet Start your diet with liquids and light foods (jello, soup, juice, toast). Then eat your usual diet if not nauseated. Treatment For Common After Affects For mild abdominal pain, bloating, or excessive gas: - Rest - Eat lightly - Lie on right side Follow-Up Information Follow-up with as scheduled Anesthesia Information What You Should Know You have had a procedure that required some medicine to reduce anxiety and discomfort. This treatment is called moderate sedation. After receiving the treatment, you may be sleepy, but you will be able to breathe on your own. The effects of the treatment may last for several hours. Follow these instructions along with Activity/Diet recommendations noted above: * Do NOT do anything where dizziness or clumsiness would be dangerous. * Rest quietly at home today, then you can be up and about tomorrow. * Have a responsible person stay with you the rest of today. * You may have had an I.V. today. If so, you may take the dressing off later today. Recommendations Call your doctor if: * Trouble breathing * Continuous vomiting for more than 24 hours * Temperature above 101 degrees * Severe abdominal pain or bloating * Pain not relieved by pain medicine ordered * There is increased drainage or redness from any incision * A large amount of rectal bleeding greater than 2-3 tablespoons. (If you had a polyp/s removed or have hemorrhoids, a small amount of blood - from the rectum is to be expected.) * You have any unanswered questions or concerns. IN THE EVENT OF A SERIOUS EMERGENCY, GO TO THE NEAREST EMERGENCY ROOM Your discharge instructions were prepared by provider Ventura Kate. Patient Instructions Signature Page Elisabeth Espinal Patient (or Guardian) Signature/Date: I have read and understand the instructions given to me by my caregivers. Caregiver/RN/Doctor Signature/Date: The above-named patient and/or guardian has received patient instructions on this date. + Original Patient Signature Page (only) stays with chart. Please make copy for patient.
--- NOTE | 2016-11-13 15:51 | GI REPORT ---
Procedure Date: 11/13/2016 3:21 PM Procedure: Upper GI endoscopy Indications: Epigastric abdominal pain, Abnormal CT of the GI tract Medicines: Propofol total dose 250 mg IV, Labetolol 30 mg IV, Lidocaine 40 mg IV Complications: No immediate complications. Estimated Blood Loss: Estimated blood loss was minimal. Procedure: Pre-Anesthesia Assessment: - Prior to the procedure, a History and Physical was performed, and patient medications, allergies and sensitivities were reviewed. The patient's tolerance of previous anesthesia was reviewed. - The risks and benefits of the procedure and the sedation options and risks were discussed with the patient. All questions were answered and informed consent was obtained. After obtaining informed consent, the endoscope was passed under direct vision. Throughout the procedure, the patient's blood pressure, pulse, and oxygen saturations were monitored continuously. The scope was introduced through the mouth, and advanced to the jejunum. The upper GI endoscopy was accomplished without difficulty. The patient tolerated the procedure well. Findings: The examined esophagus was normal. The entire examined stomach was normal. The examined jejunum was normal. Biopsies were taken with a cold forceps for histology. Estimated blood loss was minimal. The 3rd part of the duodenum was normal. Biopsies were taken with a cold forceps for histology. Estimated blood loss was minimal. The Z-line was regular and was found 38 cm from the incisors. Impression: - Normal esophagus. - Normal stomach. - Normal examined jejunum. Biopsied. - Normal 3rd part of the duodenum. Biopsied. Recommendation: - Return patient to [facility] for ongoing care. Ventura Kate M.D. Ventura Kate MD 11/13/2016 3:51:02 PM This report has been signed electronically. Note Initiated On: 11/13/2016 3:21 PM I attest to the content of the Intraoperative Record and orders documented therein, exceptions below
--- NOTE | 2016-11-13 16:11 | PROGRESS NOTE ---
DATE: 11/13/2016 SUBJECTIVE: The patient has had abdominal pain and had an abnormal CT scan suggesting some thickening of the small intestine with interpretation being possible enteritis with resultant mesenteric thickening. The patient underwent a push enteroscopy today into the jejunum. Biopsy of the jejunum and duodenum were obtained, but the mucosa looked normal throughout, the exam was not difficult to advance into the small intestine deeply with the pediatric colonoscope. She also had a mesenteric Doppler ultrasound today which was interpreted as being normal. IMPRESSION: The patient is having a recurrent abdominal pain and an abnormal CT scan of the small intestine. Push enteroscopy appeared normal. Biopsies were obtained and will be pending, mesenteric Doppler was normal. PLAN: I plan on scheduling her for small bowel x-ray to evaluate the mid and distal small intestine. ARISTEO
--- NOTE | 2016-11-13 16:23 | Anesthesiology Progress Note ---
Anesthesia Post Op Note Date & Time November 13, 2016 at 16:23 Vital Signs Pain Intensity: 0.0 Vital Signs Past 12 Hours Date Time Temp Pulse Resp B/P Pulse Ox O2 Delivery O2 Flow Rate FiO2 11/13/16 16:08 71 16 160/75 96 Room Air 11/13/16 15:53 73 16 139/62 97 Room Air 11/13/16 15:05 36.7 77 20 210/105 96 Room Air 11/13/16 08:10 Room Air 11/13/16 07:10 36.8 72 16 154/70 98 Room Air Notes Mental Status: alert / awake / arousable, participated in evaluation Pt Amnestic to Procedure: Yes Nausea / Vomiting: adequately controlled Pain: adequately controlled Airway Patency, RR, SpO2: stable & adequate BP & HR: stable & adequate Hydration State: stable & adequate Anesthetic Complications: no major complications apparent
[2016-11-13 16:43] VITALS: BP 147/75; PULSE 73; TEMP 36.5; O2SAT 95
[2016-11-13] MEDS ORDERED: NURSING VERBAL MED ORDER ONE (17:00)
[2016-11-13] MEDS: RANITIDINE HCL 150 MG TAB PO SCH (21:16)
[2016-11-13 23:25] VITALS: BP 125/56; PULSE 81; TEMP 36.8; O2SAT 96
[2016-11-14] VITALS (9 sets, daily range): BP systolic 113–175; BP diastolic 64–81; PULSE 66–73; TEMP 36.7–36.9; O2SAT 94–97
--- NOTE | 2016-11-14 02:36 | PROGRESS NOTE ---
DATE: 11/13/2016 A 61-year-old female, admitted with severe abdominal pain. Her CT scan of the abdomen and pelvis was abnormal, showing inflammation of multiple small bowel loops in the mid abdomen. The patient has had prior similar episodes in the past. Overall, her condition improved. She was getting pain medication, including Dilaudid and Toradol. She was given Zofran for her nausea. She was seen in GI consultation by Dr. Mas. Dr. Mas raised the diagnostic possibility of an angioedema involving her small bowel. Multiple additional laboratory tests were ordered. Today, the patient underwent an EGD done by Dr. Ventura Kate. The examination was quite unremarkable. He attempted to go through the small bowel as far as possible and did biopsies. The results are pending, but no significant abnormality was noted on his examination. She denied any headache or dizziness or lightheadedness. No chest pain, no shortness of breath. Her abdominal pain has mostly subsided. No nausea, no vomiting. No bowel movement yet. No urinary problem. No pain in her back or extremities. PHYSICAL EXAMINATION: GENERAL: Well developed, in no distress. VITAL SIGNS: Blood pressure 147/75, pulse 73, respiration 18, temperature 36.5, oxygen saturation 95% on room air. SKIN: Warm and dry. No rash. HEENT: Completely unremarkable. NECK: No JVD. No adenopathy. HEART: Regular heart sounds. LUNGS: Clear. ABDOMEN: Soft. Very minimal tenderness in the mid-abdominal region. No guarding, no rebound. No organomegaly or masses. Good bowel sounds. BACK: No spinal tenderness. EXTREMITIES: No edema, clubbing, or cyanosis. TODAY'S LABORATORY TESTS: WBC count 5600, hemoglobin 10.9, hematocrit 34.2, platelet count 234,000. Sodium 147, potassium 3.6, chloride 113, CO2 26, BUN 11, creatinine 0.71, glucose 88, calcium 8.3. Immunological studies are still pending. ASSESSMENT: 1. Enteritis, multiple small bowel loops with severe abdominal pain, resolving. 2. Arterial hypertension. 3. History of multiple prior similar episodes. 4. Suspected angioedema. PLAN: 1. Continuing with her workup. The patient is scheduled for a small bowel followthrough tomorrow. 2. I discontinued her IV fluid. 3. Discontinued IV Protonix. 4. She was placed on ranitidine 150 mg twice a day. 5. Her losartan was already discontinued. 6. We will continue monitoring her blood pressure. Add a calcium channel lindsey, if needed. 7. I did advance her diet.
[2016-11-14] MEDS: HydrALAZINE HCL 20 MG/ML VIAL IV. PRN (04:08)
[2016-11-14 06:32] LABS: BASO % 0.2 %; BASO ABS # 0.01 K/uL (0-0.2); COMPLETE YES; EOS % 1.5 %; HEMATOCRIT 34.5 % (37-47); IG% 0.2 %; LYMPH % 19.7 %; LYMPH ABS # 1.16 K/uL (1.2-3.4); MEAN CELL VOLUME 85.2 fL (80-100); MEAN CORPUSCULAR HEMOGLOBIN 27.9 pg (25-34); MEAN CORPUSCULAR HGB CONC 32.8 g/dl (32-36); MEAN PLATELET VOLUME 8.8 fL (7.4-10.4); MONO % 9.7 %; NEUT % 68.7 %; PLATELET COUNT 230 K/uL (130-400); RED BLOOD COUNT 4.05 M/uL (4.2-5.4); WHITE BLOOD COUNT 5.88 K/uL (4.8-10.8)
[2016-11-14 07:04] LABS: BUN/CREATININE RATIO 13.9 (10-20); CALCIUM 8.9 mg/dl (8.5-10.1); CREATININE 0.74 mg/dl (0.60-1.20); POTASSIUM 3.4 mmol/L (3.5-5.1)
[2016-11-14] MEDS: LABETALOL HCL 300 MG TAB PO SCH (08:34)
--- NOTE | 2016-11-14 11:11 | DIAGNOSTIC IMAGING REPORT ---
FLUOROSCOPIC SMALL BOWEL FOLLOW-THROUGH CLINICAL HISTORY: Generalized abdominal pain. COMPARISON STUDY: Abdominal CT dated 11/11/2016. TECHNIQUE: An abdominal operation shift supervisor radiograph was performed. The patient then consumed several cups of thin barium and a small follow-through was performed. Overhead radiographs and spot compression images were obtained. FINDINGS: The abdominal operation shift supervisor radiograph shows a nonobstructed abdominal bowel gas pattern. No evidence of intraperitoneal free air is seen. Cholecystectomy clips are noted. Numerous phleboliths are observed in the pelvis. The skeletal structures are osteopenic. The bony pelvis appears intact. On the small bowel follow-through, the stomach and duodenum are normal in configuration. A small hiatal hernia is observed. There is normal transit time with contrast identified in the colon at 120 minutes. The small bowel mucosal pattern is normal. There is no evidence of stricture or mass. The distal/terminal ileum are normal in appearance on the spot compression views. Fluoroscopy time: 0.6 minutes Fluoroscopic images: 8 IMPRESSION: 1. Unremarkable small bowel follow-through. 2. The CT findings remain consistent with a nonspecific enteritis. Clinical correlation will be required. 3. Small hiatal hernia. Electronically signed by: Rafa Hughes M.D. 11/14/2016 11:10 AM Dictated Date/Time: 11/14/2016 11:08 AM
[2016-11-14] MEDS: RANITIDINE HCL 150 MG TAB PO SCH (12:56)
[2016-11-14] MEDS ORDERED: ALL180 PO (17:39)
[2016-11-14] MEDS ORDERED: ZNT150 PO (17:39)
--- NOTE | 2016-11-14 17:42 | Discharge Instructions ---
Discharge Instructions Date of Service November 14, 2016. Admission Reason for Admission: Enteritis Discharge Discharge Diagnosis / Problem: ACUTE NON-SPECIFIC ENTERITIS. ARTERIAL HYPERTENSION Discharge Goals Goal(s): Decrease discomfort, Improve disease control Activity Recommendations Activity Limitations: resume your previous activity . Instructions / Follow-Up Instructions / Follow-Up DR BAUER IN ONE WEEK Current Hospital Diet Patient's current hospital diet: Regular Diet Discharge Diet Recommended Diet: Regular Diet Procedures Procedures Performed: EGD Pending Studies Studies pending at discharge: yes List of pending studies: COMPLEMENT STUDIES ANCA Medical Emergencies . Who to Call and When: Medical Emergencies: If at any time you feel your situation is an emergency, please call 911 immediately. . Non-Emergent Contact Non-Emergency issues call your: Primary Care Provider . . "Provider Documentation" section prepared by Papi Bauer. . VTE Core Measure Inpt VTE Proph given/why not?: Treatment not indicated
--- NOTE | 2016-11-14 21:07 | PROGRESS NOTE ---
DATE: 11/14/2016 A 61-year-old female admitted with severe intractable abdominal pain. She has had multiple similar episodes in the past. Her CT scan of the abdomen and pelvis showed evidence of inflammation of multiple loops of the small-bowel. This also has been noted in the past with similar episodes. The patient was seen in GI consultation by Dr. Mas. Multiple diagnostic possibilities were considered. She had mesenteric Doppler which was completely normal. Dr. Mas raised the possibility of angioedema involving the intestinal wall. Multiple additional tests including complement measurements and test looking for any evidence of vasculitis were ordered and the results are still pending. In view of that possibility, her losartan was discontinued. Yesterday, the patient had an EGD done by Dr. Kate. The test was completely unremarkable. Biopsies were done to the level where he was able to reach with the EGD scope, but those areas which were biopsied did not look inflamed. The pathology report which became available today showed no significant abnormalities. At this point, the patient is symptom free. She denied any abdominal pain, no nausea, no vomiting. She is tolerating her diet very well. PHYSICAL EXAMINATION: GENERAL: Well developed, in no distress. VITAL SIGNS: Blood pressure 170/81, pulse 71, respiration 18, temperature 36.7, oxygen saturation 97% on room air. SKIN: Warm and dry. No rash. HEENT: No abnormality noted. NECK: No JVD, no adenopathy. HEART: Regular heart sounds. LUNGS: Clear. ABDOMEN: Soft. Very minimal tenderness in the mid abdominal region, but no guarding, no rebound, no organomegaly or masses. BACK: No spinal tenderness. EXTREMITIES: No edema, clubbing or cyanosis. TODAY'S LABORATORY TESTS: WBC count 5880, hemoglobin 11.3, hematocrit 34.5, platelet count 230,000. Sodium 145, potassium 3.4, chloride 111, CO2 of 29, BUN 10, creatinine 0.74, glucose 107, calcium 8.9. ASSESSMENT: 1. Enteritis. Nonspecific. Angioedema is a major consideration. 2. Arterial hypertension. PLAN: 1. The patient had her small-bowel follow-through x-rays today and the test was unremarkable for any evidence of any transition point or any evidence of any obstruction. 2. All her IV fluids were discontinued. 3. She was started on Vicki 180 mg daily. 4. Her Nexium was discontinued that she was taking as an outpatient and I did start her on Zantac 150 mg twice a day. 5. With the combination of Vicki and Zantac, both medications will be quite helpful hopefully in preventing angioedema if this indeed is what we are dealing with. 6. I saw the patient again this afternoon and she was doing well. Discussed all the results with her and her . She was discharged home. I will see her in the office in 1 week. We will follow up on the pending blood tests.
[2016-11-15] MEDS ORDERED: FEXOFENADINE HCL 180 MG TAB PO SCH (09:00)
[2016-11-17 22:29] LABS: C1 ESTERASE INHIB FUNC 98 % (>=68); C1 ESTERASE INHIB TC298 33 mg/dL (21-39)
--- NOTE | 2016-11-25 17:26 | DISCHARGE SUMMARY ---
DISCHARGE DIAGNOSES: 1. Acute enteritis of the mid small bowel. 2. Partial small bowel obstruction. 3. Suspected angioedema of the small intestine wall. 4. Arterial hypertension. 5. Hypertensive cardiovascular disease with diastolic dysfunction. 6. Known Davis's esophagus. 7. Obesity. DISCHARGE MEDICATIONS: Included: 1. Vicki 180 mg daily. 2. Ranitidine 150 mg twice a day. 3. Furosemide 40 mg daily. 4. Labetalol 300 mg twice a day. 5. Potassium chloride 10 mEq twice a day. CONSULTATIONS: 1. Dr. Mas in gastroenterology. 2. Dr. Rincon in general surgery. PROCEDURE: Upper endoscopy with push enteroscopy done by Dr. Kate. HISTORY OF PRESENT ILLNESS: A 61-year-old female admitted through the Emergency Room with severe abdominal pain that has been going on for about 3 days prior to her admission. She also had CT scan finding consistent with enteritis and partial small bowel obstruction. The patient is with multiple medical problems including arterial hypertension, diastolic congestive heart failure, and prior episodes of flash pulmonary edema mostly occurred after anesthesia for surgical procedures. She has gastroesophageal reflux and previously noted Davis's esophagus. She has had multiple hospitalizations and emergency room visits and GI evaluations in the past. She usually presents with severe mid and upper abdominal pain. At times, associated with nausea and vomiting. Repeated CT scans of the abdomen showed inflammation in the wall of the small intestine. Also, there was inflammation of the mesenteric area. The exact etiology was not previously determined. She has had prior surgery for small bowel obstruction. She also had a cholecystectomy. She also had a repair of perforation of her small bowel after her cholecystectomy. The patient was seen in the Emergency Room on the day prior to her admission. Actually, she came in and she waited and she could not wait any longer, so she went home. She has been complaining of acute onset of abdominal pain, which started about 3 days prior to her admission. The pain she usually presents with is quite severe. Debilitating. She had no fever. No chills. She has not had any bowel problems. She continued to have normal bowel movements. The patient was evaluated in the Emergency Room. Multiple tests were done. Her CT scan of the abdomen and pelvis showed evidence of inflammation of the mid portion of the small intestine and the mesentery. The patient was admitted for further evaluation. PAST MEDICAL HISTORY, SOCIAL HISTORY AND FAMILY HISTORY: All as noted. ALLERGIES: INTOLERANCE TO MORPHINE. MEDICATIONS ON ADMISSION: All as noted on her home medication list. PHYSICAL EXAMINATION AND ADMISSION LABORATORY TESTS: All as noted. HOSPITAL COURSE: The patient was admitted to medical bed. Resuscitation level 1. All her laboratory tests were ordered. She was started on IV fluid. IV Zofran. IV Dilaudid and IV Protonix. Surgical consultation was requested from Dr. Rincon. GI consultation was requested from Dr. Mas. The patient was seen in consultation. Subsequently, she had an EGD and a push enteroscopy done. Biopsies were done. Unfortunately, that scope did not reach the area of described inflammation. The biopsies that were done actually showed no specific pathology. She also had subsequent small bowel x-rays. There was no significant abnormality noted. She had an arterial Doppler of the mesenteric arteries done and there was no evidence of any occlusive disease. Dr. Mas raised the possibility of angioedema, which is affecting the small bowel with acute inflammation. This really effected what exactly what has been happening to the patient and most likely that is what we are dealing with. Additional tests were ordered to rule out a vasculitis and the tests were negative. She had multiple tests done including DAREK screen, which was negative. ANCA was negative. C1 esterase inhibitor was normal. Complement C3 and C4 were also normal. The patient's pain subsided. She was able to tolerate her diet. She was ambulating. Once the possibility of an angioedema was considered, the patient was changed and she was started on Vicki 180 mg daily and also ranitidine 150 mg twice a day. The fact is if indeed that is what we are dealing with the next time she presents with an acute episode and if she does, then we will try high dose steroids initially to see if that will alleviate her symptoms. The patient was discharged home. Medications as noted above. She was to see me in the office in 1 week after her discharge. We will decide on her follow up with Dr. Mas.
[2017-03-09] MEDS ORDERED: HYOS1TAB PO (09:15)
[2017-03-09] MEDS ORDERED: AMLO-110 PO (09:15)
== END 2016-11-14 16:30 | disposition home or self-care (01) | DRG 392 ==
LOC: ENRESERVDT → ENRESERVTM → C.EDB 10:46 → C.MSN 15:35
PROVIDERS: ADMIT Internal Medicine; ATTEND Internal Medicine
PROC: 0DB98ZX Excision of Duodenum, Via Natural or Artificial Opening Endoscopic, Diagnostic (ICD-10-PCS; principal; 2016-11-13 14:57)
PROC: 0DBA8ZX Excision of Jejunum, Via Natural or Artificial Opening Endoscopic, Diagnostic (ICD-10-PCS; principal; 2016-11-13 14:57)
DX: K52.9 Noninfective gastroenteritis and colitis, unspecified (principal); K56.60 Unspecified intestinal obstruction; T78.3XXA Angioneurotic edema, initial encounter; K57.90 Diverticulosis of intestine, part unspecified, without perforation or abscess without bleeding; K21.9 Gastro-esophageal reflux disease without esophagitis; E78.5 Hyperlipidemia, unspecified; I10 Essential (primary) hypertension; K22.70 Barrett's esophagus without dysplasia; E66.9 Obesity, unspecified; K31.84 Gastroparesis; Z68.35 Body mass index [BMI] 35.0-35.9, adult; Y92.019 Unspecified place in single-family (private) house as the place of occurrence of the external cause

== ENCOUNTER → 2016-12-05 | Outpatient (CLI) | payer BC ==
[~2016-12-05] MED LIST changes: +ALL180 PO; +AMLO-110 PO; -CZR50 PO; +HYOS1TAB PO; -NXM/40 PO; +ZNT150 PO
--- NOTE | 2016-12-05 15:22 | MAMMOGRAPHY REPORT ---
BILATERAL DIGITAL SCREENING MAMMOGRAM WITH CAD: 12/05/2016 CLINICAL HISTORY: Routine screening. Patient has no complaints. TECHNIQUE: Bilateral CC and MLO views were obtained. Current study was also evaluated with a Comput er Aided Detection (CAD) system. COMPARISON: Comparison is made to exams dated: 11/29/2015 mammogram, 11/27/2014 mammogram, 09/08/2013 mammogram, 09/06/2012 mammogram, 09/04/2011 mammogram, and 09/01/2010 mammogram - [facility]. BREAST COMPOSITION: The tissue of both breasts is heterogeneously dense, which may obscure small ma sses. FINDINGS: There is a small, 3 mm nodular asymmetry in the far posterior medial right breast, only d efinitely seen on the CC view, but may project along the posterior nipple line on the MLO view. Add itional spot compression tomosynthesis views and possibly ultrasound are recommended. A 6.9 mm nodu lar asymmetry is seen in the anterior right breast along the posterior nipple line on the MLO view, warranting additional spot compression tomosynthesis views and possibly ultrasound. There is stable asymmetry in the far superior right breast on the MLO view, stable regional microcal cifications in the upper outer quadrant of the right breast, and stable metallic biopsy markers in t he upper outer quadrant of the left breast. No other suspicious mass, architectural distortion or cl uster of microcalcifications is seen. IMPRESSION: ACR BI-RADS CATEGORY 0: INCOMPLETE EVALUATION: NEED ADDITIONAL IMAGING EVALUATION The two asymmetries within the right breast need additional imaging evaluation. The patient will be called to schedule an appointment. Approximately 10% of breast cancers are not detected with mammography. A negative mammographic repor t should not delay biopsy if a clinically suggestive mass is present. Sienna Espitia M.D. ay/:12/05/2016 14:01:09 Marine Farmer: Rox GOMEZ(Gaby)(Pedro), [facility] letter sent: Addl Imaging 0 BI-RADS Code: ACR BI-RADS Category 0: Incomplete Evaluation: Need Additional Imaging Evaluation
== END | disposition home or self-care (01) ==
LOC: C.MAMM 10:33
PROVIDERS: ATTEND Obstetrics & Gynecology
DX: Z12.31 Encounter for screening mammogram for malignant neoplasm of breast (principal); R92.8 Other abnormal and inconclusive findings on diagnostic imaging of breast

== ENCOUNTER → 2016-12-13 | Outpatient (CLI) | payer BC ==
--- NOTE | 2016-12-13 14:11 | MAMMOGRAPHY REPORT ---
UNILATERAL RIGHT DIGITAL DIAGNOSTIC MAMMOGRAM TOMOSYNTHESIS AND TARGETED RIGHT ULTRASOUND: 12/13/2016 CLINICAL HISTORY: Callback from screening mammogram for right breast asymmetries. TECHNIQUE: Breast tomosynthesis in addition to standard 2D mammography was performed. Spot enio mer right CC and MLO 2-D and tomosynthesis images were obtained. COMPARISON: Comparison is made to exams dated: 12/05/2016 mammogram, 11/29/2015 mammogram, 11/27/2014 mammogram, 09/08/2013 mammogram, 09/13/2012 stereotactic biopsy, and 09/10/2012 mammogram - [facility]. BREAST COMPOSITION: The tissue of the right breast is heterogeneously dense, which may obscure smal l masses. FINDINGS: The previously described nodular 3 mm asymmetry seen within the right medial posterior br east on the cc view persists on the spot compression view, with no clear correlate seen on the MLO v iews. On the tomosynthesis images no architectural distortion or other suspicious finding is seen i n association with the asymmetry. The other previously described asymmetry within the right anterio r breast on the MLO view effaces to a baseline appearance on the additional views and is therefore c onsidered benign and felt to represent normal fibroglandular tissue. Targeted ultrasound was performed of the right far medial breast in the region of the mammographic a symmetry. Sonographically normal tissue is seen, without evidence of a mass or other suspicious son ographic abnormality. No clear sonographic correlate for the asymmetry is seen. IMPRESSION: ACR-BI-RADS CATEGORY 3: PROBABLY BENIGN, TARGETED ULTRASOUND ACR-BI-RADS CATEGORY 3: MS OBABLY BENIGN 1. The right medial posterior breast asymmetry persists on the additional views, without a clear son ographic correlate evident. The asymmetry is probably benign and likely represents normal fibroglan dular tissue. Recommend follow-up diagnostic tomosynthesis mammograms and possible ultrasound of the right breast in 6 months to reevaluate. 2. The other asymmetry in the right anterior breast effaces to a baseline appearance on the addition al views, and is benign and compatible with normal fibroglandular tissue. The patient has been verbally notified of the results. Approximately 10% of breast cancers are not detected with mammography. A negative mammographic repor t should not delay biopsy if a clinically suggestive mass is present. Miranda Carolina M.D. /:12/13/2016 10:16:16 Casting Assistant: Zuleyma SMYTH)(Pedro), [facility] letter sent: Follow Up Recommended 3 BI-RADS Code: ACR-BI-RADS Category 3: Probably Benign Ultrasound BI-RADS: ACR-BI-RADS Category 3: P robably Benign
== END | disposition home or self-care (01) ==
LOC: C.MAMM 09:40
PROVIDERS: ATTEND Obstetrics & Gynecology
DX: N64.89 Other specified disorders of breast (principal)

== ENCOUNTER → 2017-02-14 | Outpatient (CLI) | payer BC | END | disposition home or self-care (01) | LOC: C.PAPS 09:17 | PROVIDERS: ATTEND Obstetrics & Gynecology | DX: Z01.419 Encounter for gynecological examination (general) (routine) without abnormal findings (principal); R87.615 Unsatisfactory cytologic smear of cervix ==

== ENCOUNTER → 2017-04-09 | Outpatient (CLI) | payer BC ==
[~2017-04-09] MED LIST changes: -ALL180 PO; +OPTIRAY 320 IV PRN
[2017-04-09 14:17] LABS: BASO % 0.2 %; BASO ABS # 0.02 K/uL (0-0.2); COMPLETE YES; EOS % 1.8 %; HEMATOCRIT 38.8 % (37-47); IG% 0.5 %; LYMPH ABS # 1.58 K/uL (1.2-3.4); MEAN CELL VOLUME 84.5 fL (80-100); MEAN CORPUSCULAR HEMOGLOBIN 27.7 pg (25-34); MEAN CORPUSCULAR HGB CONC 32.7 g/dl (32-36); MEAN PLATELET VOLUME 9.5 fL (7.4-10.4); NEUT % 72.5 %; PLATELET COUNT 280 K/uL (130-400); RED BLOOD COUNT 4.59 M/uL (4.2-5.4); WHITE BLOOD COUNT 8.76 K/uL (4.8-10.8)
[2017-04-09 14:53] LABS: ALT/SGPT 44 U/L (12-78); AMYLASE 34 U/L (25-115); AST/SGOT 34 U/L (15-37); BLOOD UREA NITROGEN 14 mg/dl (7-18); BUN/CREATININE RATIO 20.1 (10-20); CALCIUM 9.3 mg/dl (8.5-10.1); CARBON DIOXIDE 27 mmol/L (21-32); CHLORIDE 107 mmol/L (98-107); CREATININE 0.68 mg/dl (0.60-1.20); GLUCOSE 104 mg/dl (70-99); POTASSIUM 4.5 mmol/L (3.5-5.1); SODIUM 141 mmol/L (136-145)
[2017-04-09 14:55] LABS: ALB/GLOB RATIO 0.9 (0.9-2); ALKALINE PHOSPHATASE 102 U/L (45-117)
--- NOTE | 2017-04-09 15:43 | DIAGNOSTIC IMAGING REPORT ---
ABDOMEN AND PELVIS CT WITH IV AND ORAL CONTRAST CT DOSE: 992.46 mGycm HISTORY: Generalized ABDOMINAL PAIN, MID ABDOMINAL MASS TECHNIQUE: Multiaxial CT images of the abdomen and pelvis were performed following the use of intravenous and oral contrast. A dose lowering technique was utilized adhering to the principles of ALARA. COMPARISON STUDY: Abdomen and pelvis CT 11/11/2016. FINDINGS: Trace right pleural effusion which is decreased in size. The lung bases are otherwise clear. Small hiatus hernia. No pneumoperitoneum. No pneumatosis. No suspicious lytic or blastic osseous lesions. Cholecystectomy. A few subcentimeter hypodense lesions within the liver. These are too small to characterize but favor cysts. A 1.7 cm hypodense area within the caudate lobe containing a central calcification. This may represent an area of scarring. This is also stable. The spleen, right adrenal gland, and pancreas are unremarkable. Stable 12 mm left adrenal gland nodule. The thickened loops of small bowel have resolved in the interval. No evidence for bowel obstruction. Normal appendix. No retroperitoneal lymphadenopathy. Midline abdominal wall mesh is again noted. Normal bladder. Stable uterine fibroids. Dominant fibroid measures 2.6 cm. Colonic diverticulosis. Normal kidneys. IMPRESSION: 1. No bowel wall thickening or obstruction. 2. Trace right pleural effusion which is improved. 3. Colonic diverticulosis. 4. Additional stable findings as described above. Electronically signed by: Santiago Caldera M.D. 04/09/2017 3:41 PM Dictated Date/Time: 04/09/2017 3:34 PM
== END | disposition home or self-care (01) ==
LOC: C.CTS 12:55
PROVIDERS: ATTEND Internal Medicine
DX: R10.9 Unspecified abdominal pain (principal); R19.00 Intra-abdominal and pelvic swelling, mass and lump, unspecified site; K57.30 Diverticulosis of large intestine without perforation or abscess without bleeding

== ENCOUNTER → 2017-06-15 | Outpatient (CLI) | payer BC ==
[~2017-06-15] MED LIST changes: -OPTIRAY 320 IV PRN
--- NOTE | 2017-06-15 13:53 | MAMMOGRAPHY REPORT ---
UNILATERAL RIGHT DIGITAL DIAGNOSTIC MAMMOGRAM TOMOSYNTHESIS WITH CAD AND TARGETED RIGHT ULTRASOUND: 1 08/16/2016 CLINICAL HISTORY: Short interval follow-up of right breast asymmetry. TECHNIQUE: Breast tomosynthesis in addition to standard 2D mammography was performed. Current study was also evaluated with a Computer Aided Detection (CAD) system. Right CC and MLO 2-D and tomosynthe sis images were obtained. COMPARISON: Comparison is made to exams dated: 12/13/2016 ultrasound, 12/13/2016 mammogram, 12/05/2016 mammogram, 11/29/2015 mammogram, 09/08/2013 mammogram, and 09/13/2012 stereotactic biopsy - [facility] [address]. BREAST COMPOSITION: The tissue of the right breast is heterogeneously dense, which may obscure small masses. FINDINGS: There is a 6 mm nodular focal asymmetry seen within the right upper inner quadrant posteri je, best seen on the tomosynthesis images, which appears slightly increased in size compared to the November 2016 exam. The remainder of the right breast is stable compared to prior exams, without suspici ous masses, calcifications, or areas of architectural distortion noted. Scattered benign-appearing c alcifications are stable. Targeted ultrasound was performed of the right upper inner quadrant in the region of the mammographic asymmetry. In the right breast at 1:00, 8 cm from the nipple, there is a subtle slightly hypoechoic non-circumscribed 5 x 4 x 3 mm mass with surrounding increased echogenicity. A BB was placed on the skin at the site of the sonographic finding and repeat right MLO and right CC tomosynthesis images w ere obtained. The BB is located close to the mammographic finding, indicating that the sonographic f inding may correspond with the mammographic finding although the sonographic finding is more anterior than expected for the mammographic finding. Recommend ultrasound-guided core needle biopsy for furt her evaluation, with post-clip mammograms to evaluate for concordance. IMPRESSION: ACR BI-RADS CATEGORY 4: SUSPICIOUS, TARGETED ULTRASOUND ACR BI-RADS CATEGORY 4: SUSPICIO US Slight interval increase in size of mammographic asymmetry in the right upper inner quadrant. A subt le hypoechoic 5 mm mass is seen within the right breast at 1:00 on ultrasound, which may correspond w ith the mammographic finding. Recommend ultrasound guided core needle biopsy for further evaluation, with post-clip mammograms to evaluate for mammographicsonographic concordance. A phone call was made to the physician's office to confirm faxed results were received. The patient has been verbally notified of the results. She tentatively scheduled the biopsy before leaving the [facility]. Approximately 10% of breast cancers are not detected with mammography. A negative mammographic report should not delay biopsy if a clinically suggestive mass is present. Miranda Carolina M.D. ah/:06/15/2017 11:58:35 Bonderite Operator: Faye Callahan, [facility] [address] letter sent: Abnormal 4/5 BI-RADS Code: ACR BI-RADS Category 4: Suspicious Ultrasound BI-RADS: ACR BI-RADS Category 4: Suspici ous
== END | disposition home or self-care (01) ==
LOC: C.MAMM 09:42
PROVIDERS: ATTEND Obstetrics & Gynecology
DX: N64.9 Disorder of breast, unspecified (principal); N63.10 Unspecified lump in the right breast, unspecified quadrant

== ENCOUNTER → 2017-06-20 | Outpatient (CLI) | payer BC ==
--- NOTE | 2017-06-20 11:00 | Discharge Instructions ---
Discharge Instructions Procedure Procedure Date: Jun 20, 2017. Reason for visit: Right Breast Mass. Discharge Discharge Date: Jun 20, 2017. Discharge Diagnosis: post right breast ultrasound guided core biopsy Instructions Activity Recommendations: Additional Limitations (see below) Return to School/Work: no limitations Recommended Home Diet: No Limitations Provider Instructions: ACTIVITY RECOMMENDATIONS: * No lifting, pushing, pulling or exercising the affected side for three days. RETURN TO SCHOOL/WORK: * You may return to work/school after the procedure, but do not perform any strenuous activities for 24 to 48 hours. MEDICATIONS: * Tylenol (two 325 mg) every four to six hours if needed for mild pain (if not allergic to Tylenol). DIET: * Resume previous diet. SPECIAL CARE INSTRUCTIONS: * Keep biopsy site dry for 24 hours. May shower after 24 hours, but do not soak (bathe) incision. * May remove Tegaderm (plastic patch) tomorrow AFTER showering. * Leave the steri-strips on for one week. Allow the steri-strips to fall off by themselves. If not off after one week, you may remove them. You may place a Bandaid crosswise over the strips, if desired. * Apply ice 10 minutes on and 10 minutes off as needed. * Wear a bra at bedtime to sleep more comfortably for 2-3 days. * Your referring physician should have the results after approximately 5 to 7 business days. * Call for unusual bleeding, fever, drainage, etc or if you have any questions call [phone] during normal business hours or after hours call Dr Espitia, . FOLLOW UP VISIT: Follow-up with Referring Physician as scheduled. Allergies Coded Allergies: Morphine (Verified Allergy, Mild, HIVES, 11/11/16) Mark Faust Recommendations: Call your doctor if: * Temperature above 101 degrees * Pain not relieved by pain medicine ordered * There is increased drainage or redness from any incision * You have any unanswered questions or concerns. Your Doctors Instructions noted above were prepared by provider Sienna Espitia. Patient Signature Section: Patient Instructions Signature Page Elisabethgigi Espinal Patient (or Guardian) Signature/Date: I have read and understand the instructions given to me by my caregivers. Caregiver/RN/Doctor Signature/Date: The above-named patient and/or guardian has received patient instructions on this date. + Original Patient Signature Page (only) stays with chart. Please make copy for patient.
--- NOTE | 2017-06-20 15:15 | MAMMOGRAPHY REPORT ---
ULTRASOUND GUIDED BIOPSY RIGHT BREAST: 06/20/2017 CLINICAL HISTORY: Indeterminate subtle isoechoic to hypoechoic 5 mm mass with indistinct borders in t he 1:00 right breast. Patient presented for ultrasound guided core biopsy. COMPARISON: Comparison is made to exams dated: 06/15/2017 mammogram, 06/15/2017 ultrasound, 12/13/2016 ultrasound, 12/13/2016 mammogram, 12/05/2016 mammogram, and 11/29/2015 mammogram - [facility]. PATIENT CONSENT: The procedure, risks and benefits were discussed with the patient and informed conse nt was obtained both verbally and in writing. Specific risks to this procedure include: bleeding, in fection, puncture of adjacent structure, nontarget biopsy, sampling error, pain, metal allergy and me dication reaction. PROCEDURE DESCRIPTION: A time out was performed and the right breast was agreed as the site of biopsy . The skin was prepped and draped in the usual sterile fashion. The subtle 5 mm mass in the 1:00 righ t breast was chosen as the target for biopsy. Subcutaneous and intraparenchymal 1% buffered lidocaine , with and without epinephrine, was administered as local anesthesia. A skin incision was made. Thro ugh the incision, 4 samples were taken with a 14 gauge Achieve biopsy device. A ribbon shaped metalli c marker was placed at the biopsy site. Hemostasis was achieved after manual compression. The patient tolerated the procedure well and there was no immediate complication. The samples were sent to the pathology department in an appropriately labeled container. Post procedure right CC and ML tomosynthesis images were obtained. A new ribbon-shaped biopsy marker clip is identified in the 1:00 posterior right breast, aligning with the mammographic focal asymmetr y in question. No significant post biopsy hematoma identified. IMPRESSION: ULTRASOUND GUIDED BIOPSY Status post ultrasound guided core biopsy of a subtle 5 mm mass in the 1:00 right breast. The back t o marker clip aligns with the mammographic finding in question. A ribbon shaped biopsy marker clip w as placed at the site. The patient will receive notification of the biopsy results from her referring physician. Sienna Espitia M.D. ay/:06/20/2017 12:52:49 Attending Technologist: Faye GOMEZ(Gaby)(M), [facility] Drop Press Hand: Dr. Sienna Espitia, [facility]
--- NOTE | 2017-06-20 15:18 | MAMMOGRAPHY REPORT ---
UNILATERAL RIGHT DIGITAL DIAGNOSTIC MAMMOGRAM TOMOSYNTHESIS: 06/20/2017 CLINICAL HISTORY: Status post ultrasound guided core biopsy of a subtle hypoechoic subcentimeter mass in the 1:00 right breast, 8 cm from the nipple. Please refer to the report from right breast ultrasound guided core biopsy performed at the same time for full detail. IMPRESSION: POST PROCEDURE IMAGING FOR MARKER PLACEMENT Please refer to the report from right breast ultrasound guided core biopsy performed at the same time for full detail. Approximately 10% of breast cancers are not detected with mammography. A negative mammographic report should not delay biopsy if a clinically suggestive mass is present. Sienna Espitia M.D. ay/:06/20/2017 10:58:57 Mannequin Sander And Finisher: Faye GOMEZ(R)(M), [facility] BI-RADS Code: Post Procedure Imaging For Marker Placement
== END | disposition home or self-care (01) ==
LOC: C.MAMM 09:36
PROVIDERS: ATTEND Obstetrics & Gynecology
DX: C50.911 Malignant neoplasm of unspecified site of right female breast (principal)

== ENCOUNTER → 2017-08-27 | Outpatient (CLI) | payer BC ==
[~2017-08-27] MED LIST changes: +ANAS1TAB19 PO; +CALC500C70 PO; -FURO-85 PO; -HYOS1TAB PO; -POTA10CA28 PO
--- NOTE | 2017-08-28 15:28 | DIAGNOSTIC IMAGING REPORT ---
PET/CT HISTORY: BREAST CANCER TECHNIQUE: PET/CT was performed from the base of the skull through the pelvis following the intravenous administration of 12.9 mCi of F18-FDG. Non-contrast CT imaging was performed over the same range without breath-hold for attenuation correction of PET images and anatomic correlation, but not for primary interpretation as it is not of standard diagnostic quality. CT DOSE: COMPARISON: Abdomen and pelvis CT 04/09/2017. FINDINGS: HEAD AND NECK: There is no FDG-avid disease or significant lymphadenopathy in the imaged portions of the head and the neck. Dominant right cervical lymph node measures 8 mm. However, this is not demonstrate abnormal FDG uptake. The right thyroid lobe is asymmetrically enlarged in comparison to the left. Focus of FDG uptake corresponds to the right arytenoid cartilage. This is likely physiologic. CHEST: Postoperative changes consistent with a right breast lumpectomy. There are surgical clips and a small amount of fluid within the right breast upper inner quadrant. This measures 5.6 cm and favors a seroma. There is mild surrounding FDG uptake at this location suggestive of postoperative change. This demonstrates an SUV max of 2.3. No enlarged or FDG avid axillary lymph nodes. No suspicious pulmonary nodules. ABDOMEN/PELVIS: Below the diaphragm, tracer is distributed physiologically in the gastrointestinal and genitourinary tracts. There is no significant lymphadenopathy and no FDG-avid disease. Cholecystectomy. No FDG avid hepatic or splenic masses. Stable left adrenal gland nodule. Moderate degenerative uptake associated with the anterior abdominal wall mesh. This is also likely due to postoperative change. Small uterine fibroid. MUSCULOSKELETAL: There is no FDG-avid or destructive bone lesion. IMPRESSION: 1. No FDG avid disease identified. 2. Postoperative changes within the right breast as described above. Electronically signed by: Santiago Caldera M.D. 08/28/2017 3:27 PM Dictated Date/Time: 08/27/2017 2:00 PM
== END | disposition home or self-care (01) ==
LOC: C.PET 08:08
PROVIDERS: ATTEND Internal Medicine Hematology & Oncology
DX: C50.211 Malignant neoplasm of upper-inner quadrant of right female breast (principal)

== ENCOUNTER → 2017-09-05 | Outpatient (CLI) | payer BC ==
[2017-09-05 15:04] LABS: BASO % 0.3 %; BASO ABS # 0.02 K/uL (0-0.2); EOS % 3.4 %; EOS ABS # 0.23 K/uL (0-0.5); HEMOGLOBIN 12.8 g/dL (12.0-16.0); IG# 0.02 K/uL (0.00-0.02); LYMPH % 21.9 %; LYMPH ABS # 1.49 K/uL (1.2-3.4); MEAN CORPUSCULAR HEMOGLOBIN 27.9 pg (25-34); MEAN CORPUSCULAR HGB CONC 32.8 g/dl (32-36); MONO % 6.5 %; MONO ABS # 0.44 K/uL (0.11-0.59); NEUT % 67.6 %; NEUT ABS # 4.61 K/uL (1.4-6.5); PLATELET COUNT 291 K/uL (130-400); RED CELL DISTRIBUTION WIDTH CV 14.2 % (11.5-14.5); RED CELL DISTRIBUTION WIDTH SD 44.2 fL (36.4-46.3); WHITE BLOOD COUNT 6.81 K/uL (4.8-10.8)
[2017-09-05 15:19] LABS: ALBUMIN 3.7 gm/dl (3.4-5.0); ALKALINE PHOSPHATASE 87 U/L (45-117); ALT/SGPT 33 U/L (12-78); AST/SGOT 23 U/L (15-37); BLOOD UREA NITROGEN 14 mg/dl (7-18); CALCIUM 9.5 mg/dl (8.5-10.1); CARBON DIOXIDE 28 mmol/L (21-32); GLUCOSE 100 mg/dl (70-99); LIPASE 133 U/L (73-393); POTASSIUM 4.5 mmol/L (3.5-5.1); SODIUM 141 mmol/L (136-145); TOTAL PROTEIN 7.6 gm/dl (6.4-8.2)
== END | disposition home or self-care (01) ==
LOC: C.LABSPEC 14:46
PROVIDERS: ATTEND Internal Medicine
DX: R10.9 Unspecified abdominal pain (principal)

== ENCOUNTER → 2017-10-08 | Outpatient (CLI) | payer BC | END | disposition home or self-care (01) | LOC: C.LABSPEC 12:38 | PROVIDERS: ATTEND Internal Medicine | DX: L03.031 Cellulitis of right toe (principal) ==

== ENCOUNTER → 2017-10-08 | Outpatient (CLI) | payer BC | END | disposition home or self-care (01) | LOC: C.PATHSPEC 17:19 | PROVIDERS: ATTEND Internal Medicine | DX: D22.71 Melanocytic nevi of right lower limb, including hip (principal) ==

== ENCOUNTER → 2017-11-02 | Outpatient (CLI) | payer BC ==
[~2017-11-02] MED LIST changes: +IBUP-103 PO
[2017-11-02 10:08] VITALS: BP 128/84; PULSE 65; TEMP 36.6; O2SAT 97
--- NOTE | 2017-11-02 11:20 | Radiation Oncology Follow-Up ---
Radiation Oncology Follow-Up Date of Visit Nov 02, 2017. 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 She received 5130 centigrade utilizing hypo-fractionation. Last Edited By: Meri Wilson on Oct 04, 2017 08:12 History of Present Illness Ms. Espinal is without a family history of breast cancer. The patient underwent a screening mammogram on 12/05/2016. This showed a small 3 mm nodular asymmetry in the far posterior medial right breast. This was only seen on the CC view so additional views were recommended. On December 13 patient underwent a unilateral right digital diagnostic mammogram and targeted right breast ultrasound. The previously described nodular 3 mm asymmetry was seen within the right medial posterior breast persisted on spot compression views with no clear correlate seen on the MLO views. On Tomosynthesis images no architectural distortion or other suspicious findings were seen. Targeted ultrasound was performed of the far medial right breast in the region of the mammographic asymmetry. Sonographically normal tissue was seen without evidence of mass or other suspicious sonographic abnormalities. This was given a BI-RADS Category 3 with recommended follow-up diagnostic tomosynthesis in 6 months. On 06/15/2017 patient underwent a repeat unilateral right digital diagnostic mammogram and targeted right breast ultrasound. This showed a 6 mm nodular focal asymmetry seen within the right upper inner quadrant that appears to have increased from previous study 6 months ago. Targeted ultrasound showed at the 1 o'clock position of the right breast 8 cm the nipple a subtle slightly hypoechoic non-circumscribed 0.5 x 0.4 x 0.3 cm mass. Recommended ultrasound- guided core needle biopsy was made. On 06/20/2017 patient underwent ultrasound- guided core biopsy of the right breast. This revealed an invasive ductal carcinoma Bon Wier grade 1 of 3. Estrogen receptors were positive (100%, strong intensity, 8 score 300). Progesterone receptor was positive (100%, strong/intermediate intensity, a T score 270). HER-2/torin overexpression was negative and confirmed negative by FISH analysis. The Ki-67 proliferation index was 10%. Case: [id number]. Patient was seen at [facility] by Dr. Cunningham. We reviewed [facility] pathology confirming a diagnosis of moderate to well- differentiated invasive ductal carcinoma. Accession #: [id number]. The mammograms were also reviewed. Treatment options were discussed and recommendations for consideration of breast conserving therapy was made and approved. The patient agreed and on 07/23/2017 he underwent a right breast partial mastectomy and sentinel node biopsy. A total of 5 sentinel and non- sentinel nodes were identified and all were negative. The partial mastectomy specimen confirmed an invasive ductal carcinoma, moderately differentiated measuring 6 mm in size. 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 The margins were uninvolved by invasive carcinoma with the closest margin being 5 mm represented by the posterior margin. The margins were uninvolved by DCIS. The distance from the closest DCIS margin was 2.1 mm from the posterior margin. The final AJCC pathologic staging was therefore a PE T1b PN 0 (I find's), ER positive, AL positive and HER-2/torin negative. Accession #: [id number]. Patient was subsequently seen by Dr. Brayan Mancia, medical oncologist to discuss the role of adjuvant therapy. Dr. Cunningham ordered an Oncotype DX test which returned a recurrence score of 16 placing her in the low risk category. For this reason no adjuvant systemic chemotherapy was recommended. The patient will undergo adjuvant antiestrogen therapy following completion of her planned radiation. We are asked to see the patient to review with her the role of adjuvant radiation and discussed the various treatment options. It is for this reason the patient was seen in referral today. She underwent a CT simulation and was found to be a candidate for hypo- fractionation. Radiation was completed September 26, 2017. She received 5130 cGy. Interim History She has been doing well over the past month. She did have dryness of the skin and peeling following treatment. There were areas of redness. She saw her primary care provider who gave her a prescription for Silvadene. This dried the skin out and caused irritation. She happened to run into Dr. Girard when she was visiting her mother who is an inpatient. He recommended that she use Aquaphor. This helped to relieve the dryness of the skin. This healed without difficulty. She denies any pain. She has noticed no masses and no change of the axilla. She has had no swelling of her arm. She has started Arimidex. She did not have any complaints of side effects in regards to the medication. Allergies Coded Allergies: Morphine (Verified Allergy, Mild, HIVES, 11/11/16) Home Medications Scheduled Amlodipine (Norvasc), 5 MG PO DAILY Anastrozole (Arimidex), 1 TAB PO DAILY Calcium/Vitamin D (Os-Jorge Alberto 500 Plus D), 1 TAB PO DAILY Ibuprofen Tab (Advil), 400 MG PO Q6 Labetalol (Normodyne), 300 MG PO BID Ranitidine HCl (Ranitidine HCl), 150 MG PO BID Review of Systems Gastrointestinal: Symptoms: WNL Oral: Symptoms: No Problems Respiratory: Symptoms: WNL Urinary: Symptoms: WNL Skin: Symptoms: No Problems Breast: Right Upper Arm Measurement: 34.5 Right Mid Arm Measurement: 27.0 Right Wrist Measurement: 16.4 Left Upper Arm Measurement: 36.0 Left Mid Arm Measurement: 27.0 Left Wrist Measurement: 16.2 Arm Dominence: Right Patient Cosmetic Evaluation: Good Staff Cosmetic Evalaluation: Good Additional Notes: She completed a distress management report and answer "no" to all questions. Physical Exam Vital Signs Date Time Temp Pulse Resp B/P (MAP) Pulse Ox O2 Delivery O2 Flow Rate FiO2 11/02/17 10:08 36.6 65 18 128/84 97 ECOG Performance Status: 0 General Appearance: no apparent distress Eyes: normal inspection, EOMI ENT: normal ENT inspection, hearing grossly normal Neck: supple, no adenopathy, thyroid normal Respiratory/Chest: lungs clear, no respiratory distress, no accessory muscle use Breast: Breast examination reveals well-healed incisions of the right breast. There are no masses or tenderness and no axillary adenopathy. She has no skin retractions or nipple changes. She has resolving hyperpigmentation. Using the Bon Wier score cosmesis she has a good outcome. Left breast showed no masses or tenderness and no axillary adenopathy. There is asymmetry in that the right breast is smaller than the left. Cardiovascular: regular rate, rhythm, no gallop, no murmur Extremities: no pedal edema Neurologic/Psychiatric: no motor/sensory deficits, alert, normal mood/affect Pain Management Patient Reports Pain: No Side: Bilateral Patient Preferred Pain Scale: 0 - 10 Initial Pain Intensity: 0.0 Pain Management Plan She denies pain therefore requires no pain management. Laboratory Laboratory Results: not applicable Pathology Pathology Results: were reviewed, and pertinent findings noted in HPI Imaging Imaging Studies: not applicable Assessment & Plan She was seen and examined by Dr. Girrad. She will continue follow-up with Dr. Cunningham and will be seen on January 31 with a recheck mammogram. We discussed follow-up in regards to breast exams and mammograms. We completed a cancer survivorship care plan. She was given a copy of the document as well as a survivorship booklet. She mentioned that on her first consultation there been a discussion with Dr. Cunningham about breast reduction. She will continue that conversation with her. She is not inclined to have any surgery in the near future. She also had questions in regards to dense breasts. I reviewed with her that she will have recheck diagnostic mammograms. These will be compared to previous to ensure that there have been no new concerning changes. We also discussed that some patients have MRIs if it is indicated and recommended by the surgeon. She will continue regular follow-up with her primary care provider , medical oncologist, and tool and die engineer. We asked her to return to our office in 6 months. She may call if she has any questions or concerns in the interim. Assessment & Plan (Attending) I agree with note created by Meri Wilson PA-C. I reviewed the patient's chart and information with her. I have examined and evaluated the patient. I reviewed relevant clinical information and answered the patient's and/or family' s questions. OCCUPATIONAL THERAPY PROFESSOR Total Time In Follow-Up I spent 20 minutes speaking to the patient and performing examination. I spent 20 minutes reviewing information, preparing the survivorship document, and completing this note. AK Total Time (Attending) In Follow-Up I spent 15 minutes examining and counseling the patient. OCCUPATIONAL THERAPY PROFESSOR Copy To Papi See M.D.; Brayan Mancia D.O.; Ariana Renteria M.D.; Ivonne Cunningham M.D. 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
== END | disposition home or self-care (01) ==
LOC: C.ONC 09:59
PROVIDERS: ATTEND Physician Assistant Medical
DX: Z08 Encounter for follow-up examination after completed treatment for malignant neoplasm (principal); Z92.3 Personal history of irradiation; Z85.3 Personal history of malignant neoplasm of breast

== ENCOUNTER → 2017-11-26 | Outpatient (CLI) | payer BC | END | disposition home or self-care (01) | LOC: C.MAMM 12:33 | PROVIDERS: ATTEND Internal Medicine Hematology & Oncology | DX: C50.919 Malignant neoplasm of unspecified site of unspecified female breast (principal); M85.851 Other specified disorders of bone density and structure, right thigh; M85.852 Other specified disorders of bone density and structure, left thigh ==

== ENCOUNTER 2018-02-07 17:09 | Emergency (ER) | payer BC ==
[~2018-02-07] VITALS: Ht 170.2 cm; Wt 102.3 kg
[~2018-02-07 17:09] MED LIST changes: -AMLO-110 PO; +AMLO5TAB3 PO; -ANAS1TAB19 PO; +ANAS1TAB59 PO; -LABE300T PO; +LABE300T4 PO
[2018-02-07 17:31] VITALS: TEMP 36.8; Ht 170.2 cm; Wt 102.3 kg
[2018-02-07] MEDS ORDERED: SODIUM CHLORIDE 0.9% 1000ML 1,000 ML IV STA (17:44)
--- NOTE | 2018-02-07 17:59 | EMERGENCY ROOM VISIT NOTE ---
History Report prepared by David: Faheem Masterson Under the Supervision of: Dr. Terell Tian M.D. First contact with patient: 17:36 Chief Complaint: ABDOMINAL PAIN Stated Complaint: ABD PAIN History of Present Illness The patient is a 62 year old female who presents to the Emergency Room with complaints of severe and constant abdominal pain that she has been experiencing for the past 3 days. The pain is diffuse across her abdomen. The patient also notes intermittent bouts of diarrhea over the same time period. She states that she has a history of C. difficile 2 years ago, but adds that her stools to not smell like they did on that episode. She does not report any recent antibiotic use. She denies any recent travel, eating any different foods including undercooked meats, she states no one else in her household has the same symptoms she does. She denies any hematochezia, melena, nausea or vomiting or urinary irregularities. She has not had any fevers. Source of History: patient Onset: 3 days Position: abdomen Symptom Intensity: severe Timing: constant Associated Symptoms: + diarrhea, No hematochezia, No urinary symptoms Review of Systems See HPI for pertinent positives and negatives. A total of ten systems were reviewed and were otherwise negative. Past Medical & Surgical Medical Problems: (1) Diverticulosis (2) ENTERITIS. PARTIAL SMALL BOMEL OBSTRUCTION (3) GERD (gastroesophageal reflux disease) (4) Herpes zoster (5) Hyperlipidemia (6) Hypertension (7) Incisional hernia (8) Partial small bowel obstruction (9) Vocal cord nodule Surgical Problems: (1) H/O repair of left rotator cuff (2) History of colonoscopy (3) History of incisional hernia repair (4) History of laparotomy (5) S/P laparoscopic cholecystectomy Family History Heart disease Social History Smoking Status: Never Smoker Alcohol Use: none Drug Use: none Marital Status: Housing Status: lives with significant other Occupation Status: retired Current/Historical Medications Scheduled Amlodipine (Norvasc), 5 MG PO DAILY Anastrozole (Arimidex), 1 TAB PO DAILY Calcium/Vitamin D (Os-Jorge Alberto 500 Plus D), 1 TAB PO DAILY Ibuprofen Tab (Advil), 400 MG PO Q6 Labetalol (Normodyne), 300 MG PO BID Ranitidine HCl (Ranitidine HCl), 150 MG PO BID Allergies Coded Allergies: Morphine (Verified Adverse Reaction, Mild, HIVES, 02/07/18) Physical Exam Vital Signs Date Time Temp Pulse Resp B/P (MAP) Pulse Ox O2 Delivery O2 Flow Rate FiO2 02/07/18 21:12 88 20 134/66 98 02/07/18 20:37 78 20 148/81 98 Room Air 02/07/18 18:54 88 20 156/96 96 Room Air 02/07/18 17:31 36.8 81 20 143/80 97 Room Air Physical Exam Physical Exam GENERAL: She is oriented to person, place, and time. She appears well- developed and well-nourished. She does not appear distressed. HENT: Exam performed. Head: Normocephalic and atraumatic. Right Ear: External ear normal. No mastoid tenderness. Left Ear: External ear normal. No mastoid tenderness. Mouth/Throat: The oropharynx is clear and moist. No trismus in the jaw. No dental abscesses or uvula swelling. No oropharyngeal exudate or tonsillar abscesses. EYES: Conjunctivae and EOM are normal. Pupils are equal, round, and reactive to light. Right eye exhibits no discharge. Left eye exhibits no discharge. No scleral icterus. NECK: Normal range of motion. Neck supple. No JVD present. No spinous process tenderness present. No carotid bruit present. No rigidity. No tracheal deviation and normal range of motion present. No Brudzinski's sign and no Kernig 's sign noted. CV: Normal rate, regular rhythm, normal heart sounds and intact distal pulses. There is no peripheral edema. Palpable radial pulses bue. PULM/CHEST: Effort normal and breath sounds normal. No respiratory distress. No stridor. She has no wheezes. She has no rales. Chest Wall: She exhibits no tenderness. ABD: The abdomen is soft. Bowel sounds are normal. She has no distension. No mass is present. There is pain on palpation of right lower quadrant. There is no rebound, no guarding, no Bacon's sign and no tenderness at McBurney's point. Rovsig negative MUSC/SKEL: Normal range of motion. There is no peripheral edema, tenderness or deformity. LYMPH: No cervical adenopathy. NEURO: She is alert and oriented to person, place, and time. She has normal strength. No cranial nerve deficit or sensory deficit. Coordination and gait normal. GCS eye subscore is 4. GCS verbal subscore is 5. GCS motor subscore is 6. Cerebellar tests wnl. SKIN: Skin is warm and dry. She is not diaphoretic. PSYCH: She has a normal mood and affect. Behavior is normal. Judgment and thought content normal. Medical Decision & Procedures ER Provider Diagnostic Interpretation: Radiology results as stated below per my review and radiologist interpretation: CT ABD/PELVIS IV CONTRAST ONLY CLINICAL HISTORY: Right lower quadrant abdominal pain COMPARISON STUDY: March 2017 TECHNIQUE: Following the IV administration of 115 mL of Optiray-320, CT scan of the abdomen and pelvis was performed from the lung bases to the proximal femurs. Images are reviewed in the axial, sagittal, and coronal planes. IV contrast was administered without complication. A dose lowering technique was utilized adhering to the principles of ALARA. CT DOSE: 1181.42 mGy.cm FINDINGS: Lower chest: There is a trace left pleural effusion. There is a small hiatal hernia. Liver: There is mild hepatic steatosis. There are 2 subcentimeter left lobe hypodensities, likely representing cysts. Gallbladder: Surgically absent Spleen: Borderline enlarged measuring 12.5 cm. No splenic masses identified. Pancreas: Unremarkable. Adrenal glands: There is a stable 13 mm left adrenal nodule Kidneys: There is symmetric renal cortical enhancement. The kidneys are normal in size without hydronephrosis. Bowel: There are prominent fluid-filled jejunal loops which are the upper limits of normal in diameter. There are no transition zones to indicate a high-grade bowel obstruction. There is colonic diverticulosis. There are no acute peridiverticular inflammatory changes. The appendix appears normal. There is mild small bowel wall thickening, with mural fat hypertrophy. The findings could be secondary to enteritis. Peritoneum: There is a small amount of free pelvic fluid. There is no free intraperitoneal air. There is minimal infiltration of the central mesentery. There are postsurgical changes of a ventral hernia repair. Vasculature: The abdominal aorta is normal in course and caliber. Adenopathy: None. Pelvic viscera: There is a 23 mm uterine fibroid. Skeletal structures: No destructive osseous lesions are seen. IMPRESSION: 1. Prominent fluid-filled jejunal loops the upper limits of normal in size, but no transition zones to indicate a high-grade bowel obstruction 2. Mild small bowel wall thickening. The findings could be secondary to an enteritis 3. Diverticulosis. No evidence of acute diverticulitis 4. No evidence of acute appendicitis 5. Borderline splenomegaly 6. Stable 13 mm left adrenal nodule 7. 23 mm uterine fibroid 8. Trace left pleural effusion 9. Small amount of free pelvic fluid. Electronically signed by: James Johnson M.D. 02/07/2018 8:22 PM Dictated Date/Time: 02/07/2018 8:10 PM Laboratory Results 02/07/18 18:40 Red Blood Count 4.56, Mean Corpuscular Volume 83.3, Mean Corpuscular Hemoglobin 28.1, Mean Corpuscular Hemoglobin Concent 33.7, Mean Platelet Volume 9.5, Neutrophils (%) (Auto) 76.7, Lymphocytes (%) (Auto) 12.2, Monocytes (%) (Auto) 9.0, Eosinophils (%) (Auto) 1.7, Basophils (%) (Auto) 0.2, Neutrophils # (Auto) 6.24, Lymphocytes # (Auto) 0.99, Monocytes # (Auto) 0.73, Eosinophils # (Auto) 0.14, Basophils # (Auto) 0.02 02/07/18 18:40 Test 02/07/18 17:39 02/07/18 18:40 Urine Color DK YELLOW Urine Appearance CLOUDY (CLEAR) Urine pH 5.0 (4.5-7.5) Urine Specific [place] 1.030 (1.000-1.030) Urine Protein NEG (NEG) Urine Glucose (UA) NEG (NEG) Urine Ketones TRACE (NEG) Urine Occult Blood NEG (NEG) Urine Nitrite NEG (NEG) Urine Bilirubin NEG (NEG) Urine Urobilinogen NEG (NEG) Urine Leukocyte Esterase TRACE (NEG) Urine WBC (Auto) 1-5 /hpf (0-5) Urine RBC (Auto) 10-30 /hpf (0-4) Urine Hyaline Casts (Auto) 1-5 /lpf (0-5) Urine Epithelial Cells (Auto) 10-20 /lpf (0-5) Urine Bacteria (Auto) NEG (NEG) White Blood Count 8.14 K/uL (4.8-10.8) Red Blood Count 4.56 M/uL (4.2-5.4) Hemoglobin 12.8 g/dL (12.0-16.0) Hematocrit 38.0 % (37-47) Mean Corpuscular Volume 83.3 fL (80-100) Mean Corpuscular Hemoglobin 28.1 pg (25-34) Mean Corpuscular Hemoglobin Concent 33.7 g/dl (32-36) Platelet Count 236 K/uL (130-400) Mean Platelet Volume 9.5 fL (7.4-10.4) Neutrophils (%) (Auto) 76.7 % Lymphocytes (%) (Auto) 12.2 % Monocytes (%) (Auto) 9.0 % Eosinophils (%) (Auto) 1.7 % Basophils (%) (Auto) 0.2 % Neutrophils # (Auto) 6.24 K/uL (1.4-6.5) Lymphocytes # (Auto) 0.99 K/uL (1.2-3.4) Monocytes # (Auto) 0.73 K/uL (0.11-0.59) Eosinophils # (Auto) 0.14 K/uL (0-0.5) Basophils # (Auto) 0.02 K/uL (0-0.2) RDW Standard Deviation 42.2 fL (36.4-46.3) RDW Coefficient of Variation 13.9 % (11.5-14.5) Immature Granulocyte % (Auto) 0.2 % Immature Granulocyte # (Auto) 0.02 K/uL (0.00-0.02) Anion Gap 7.0 mmol/L (3-11) Est Creatinine Clear Calc Drug Dose 73.8 ml/min Estimated GFR () 72.9 Estimated GFR (Non- 62.9 BUN/Creatinine Ratio 23.0 (10-20) Lactic Acid Level 0.7 mmol/L (0.4-2.0) Calcium Level 8.5 mg/dl (8.5-10.1) Total Bilirubin 0.4 mg/dl (0.2-1) Direct Bilirubin 0.1 mg/dl (0-0.2) Aspartate Amino Transf (AST/SGOT) 74 U/L (15-37) Alanine Aminotransferase (ALT/SGPT) 118 U/L (12-78) Alkaline Phosphatase 132 U/L (45-117) Total Protein 7.1 gm/dl (6.4-8.2) Albumin 3.4 gm/dl (3.4-5.0) Lipase 103 U/L (73-393) Laboratory results reviewed by me Medications Administered Medications (Trade) Dose Ordered Sig/Linda Route Start Time Stop Time Status Last Admin Dose Admin Sodium Chloride 1,000 ml @ 125 mls/hr Q8H STAT IV 02/07/18 17:44 02/08/18 01:43 02/07/18 17:44 125 MLS/HR Ketorolac Tromethamine (Toradol Inj) 15 mg NOW STAT IV 02/07/18 19:47 02/07/18 19:48 DC 02/07/18 19:57 15 MG ED Course 1737: The patient was evaluated in room B6. A complete history and physical exam was performed. 1743: Ordered Sodium Chloride 1000 mL @ 125 mL/hr IV. 1946: Ordered Toradol 15 mg IV. 2106: Vitals are stable. Labs are within normal limits, with the exception of mildly elevated liver enzymes. CT of the abdomen showed no small bowel obstruction, appendicitis, or diverticulitis. CT was concerning for gastroenteritis. The patient will be discharged with follow-up PCP DISCHARGE - Plan of care discussed with patient and questions answered. The patient was given both verbal and printed discharge instructions. The patient verbalized understanding and ability to comply. The patient is to seek outpatient follow up as noted in the discharge instructions. The patient verbalized understanding and ability to comply. The patient is discharged in stable condition. The patient was instructed to return for worsening symptoms. Medical Decision Vitals are stable. Labs are within normal limits, with the exception of mildly elevated liver enzymes. CT of the abdomen showed no small bowel obstruction, appendicitis, or diverticulitis. CT was concerning for gastroenteritis. The patient will be discharged with follow-up PCP DISCHARGE - Plan of care discussed with patient and questions answered. The patient was given both verbal and printed discharge instructions. The patient verbalized understanding and ability to comply. The patient is to seek outpatient follow up as noted in the discharge instructions. The patient verbalized understanding and ability to comply. The patient is discharged in stable condition. The patient was instructed to return for worsening symptoms. Medication Reconcilliation Current Medication List: was personally reviewed by me Blood Pressure Screening Patient's blood pressure: Elevated blood pressure Impression Primary Impression: Gastroenteritis Scribe Attestation The scribe's documentation has been prepared under my direction and personally reviewed by me in its entirety. I confirm that the note above accurately reflects all work, treatment, procedures, and medical decision making performed by me. The chart was completed utilizing [employer] Speech voice recognition software. Grammatical errors, random word insertions, pronoun errors, and incomplete sentences are an occasional consequence of this system due to software limitations, ambient noise, and hardware issues. Any formal questions or concerns about the content, text, or information contained within the body of this dictation should be directly addressed to the physician for clarification. Departure Information Dispostion Home / Self-Care Referrals Papi See M.D. (PCP) Forms Call Back Authorization, HOME CARE DOCUMENTATION FORM, IMPORTANT VISIT INFORMATION Patient Instructions My [facility] Additional Instructions Return to the emergency department if you develop fever greater 100.4, blood in your stools, dark black tarry stools, blood in your urine, vomiting, or your symptoms do not improve.
[2018-02-07] MEDS ORDERED: OPTIRAY 320 IV PRN (18:00)
[2018-02-07 19:00] LABS: BASO % 0.2 %; BASO ABS # 0.02 K/uL (0-0.2); EOS % 1.7 %; EOS ABS # 0.14 K/uL (0-0.5); HEMOGLOBIN 12.8 g/dL (12.0-16.0); IG# 0.02 K/uL (0.00-0.02); LYMPH % 12.2 %; LYMPH ABS # 0.99 K/uL (1.2-3.4); MEAN CELL VOLUME 83.3 fL (80-100); MEAN CORPUSCULAR HEMOGLOBIN 28.1 pg (25-34); MEAN CORPUSCULAR HGB CONC 33.7 g/dl (32-36); MEAN PLATELET VOLUME 9.5 fL (7.4-10.4); MONO ABS # 0.73 K/uL (0.11-0.59); NEUT % 76.7 %; NEUT ABS # 6.24 K/uL (1.4-6.5); PLATELET COUNT 236 K/uL (130-400); RED CELL DISTRIBUTION WIDTH CV 13.9 % (11.5-14.5); RED CELL DISTRIBUTION WIDTH SD 42.2 fL (36.4-46.3); WHITE BLOOD COUNT 8.14 K/uL (4.8-10.8)
[2018-02-07 19:28] LABS: ALBUMIN 3.4 gm/dl (3.4-5.0); CALCIUM 8.5 mg/dl (8.5-10.1); CREATININE 0.96 mg/dl (0.60-1.20); POTASSIUM 3.9 mmol/L (3.5-5.1); TOTAL PROTEIN 7.1 gm/dl (6.4-8.2)
[2018-02-07] MEDS ORDERED: KETOROLAC TROMETHAMINE 30 MG/ML VIAL IV STA (19:47)
--- NOTE | 2018-02-07 20:23 | DIAGNOSTIC IMAGING REPORT ---
CT ABD/PELVIS IV CONTRAST ONLY CLINICAL HISTORY: Right lower quadrant abdominal pain COMPARISON STUDY: March 2017 TECHNIQUE: Following the IV administration of 115 mL of Optiray-320, CT scan of the abdomen and pelvis was performed from the lung bases to the proximal femurs. Images are reviewed in the axial, sagittal, and coronal planes. IV contrast was administered without complication. A dose lowering technique was utilized adhering to the principles of ALARA. CT DOSE: 1181.42 mGy.cm FINDINGS: Lower chest: There is a trace left pleural effusion. There is a small hiatal hernia. Liver: There is mild hepatic steatosis. There are 2 subcentimeter left lobe hypodensities, likely representing cysts. Gallbladder: Surgically absent Spleen: Borderline enlarged measuring 12.5 cm. No splenic masses identified. Pancreas: Unremarkable. Adrenal glands: There is a stable 13 mm left adrenal nodule Kidneys: There is symmetric renal cortical enhancement. The kidneys are normal in size without hydronephrosis. Bowel: There are prominent fluid-filled jejunal loops which are the upper limits of normal in diameter. There are no transition zones to indicate a high-grade bowel obstruction. There is colonic diverticulosis. There are no acute peridiverticular inflammatory changes. The appendix appears normal. There is mild small bowel wall thickening, with mural fat hypertrophy. The findings could be secondary to enteritis. Peritoneum: There is a small amount of free pelvic fluid. There is no free intraperitoneal air. There is minimal infiltration of the central mesentery. There are postsurgical changes of a ventral hernia repair. Vasculature: The abdominal aorta is normal in course and caliber. Adenopathy: None. Pelvic viscera: There is a 23 mm uterine fibroid. Skeletal structures: No destructive osseous lesions are seen. IMPRESSION: 1. Prominent fluid-filled jejunal loops the upper limits of normal in size, but no transition zones to indicate a high-grade bowel obstruction 2. Mild small bowel wall thickening. The findings could be secondary to an enteritis 3. Diverticulosis. No evidence of acute diverticulitis 4. No evidence of acute appendicitis 5. Borderline splenomegaly 6. Stable 13 mm left adrenal nodule 7. 23 mm uterine fibroid 8. Trace left pleural effusion 9. Small amount of free pelvic fluid. Electronically signed by: James Johnson M.D. 02/07/2018 8:22 PM Dictated Date/Time: 02/07/2018 8:10 PM
[2018-02-07 21:12] VITALS: BP 134/66; PULSE 88; O2SAT 98
== END 2018-02-07 21:14 | disposition home or self-care (01) ==
LOC: C.EDB 17:10
DX: K52.9 Noninfective gastroenteritis and colitis, unspecified (principal); K21.9 Gastro-esophageal reflux disease without esophagitis; E78.5 Hyperlipidemia, unspecified; I10 Essential (primary) hypertension; Z90.49 Acquired absence of other specified parts of digestive tract; Z79.899 Other long term (current) drug therapy; Z88.5 Allergy status to narcotic agent

== ENCOUNTER → 2018-02-08 | Outpatient (CLI) | payer BC | END | disposition home or self-care (01) | LOC: C.LABSPEC 12:56 | PROVIDERS: ATTEND Internal Medicine | DX: R19.7 Diarrhea, unspecified (principal) ==

== ENCOUNTER → 2018-02-12 | Outpatient (CLI) | payer BC ==
[2018-02-12 18:49] LABS: ALBUMIN 3.5 gm/dl (3.4-5.0); ALKALINE PHOSPHATASE 93 U/L (45-117); ALT/SGPT 41 U/L (12-78); AST/SGOT 17 U/L (15-37); TOTAL PROTEIN 6.8 gm/dl (6.4-8.2)
== END | disposition home or self-care (01) ==
LOC: C.LABSPEC 17:53
PROVIDERS: ATTEND Internal Medicine Gastroenterology
DX: R74.8 Abnormal levels of other serum enzymes (principal)

== ENCOUNTER → 2018-02-14 | Day surgery (SDC) | payer BC ==
[2018-02-06 14:48] VITALS: Ht 170.2 cm; Wt 101.8 kg
[~2018-02-14] VITALS: Ht 170.2 cm; Wt 101.8 kg
[~2018-02-14] MED LIST changes: +LIDOCAINE HCL 2% 2 ML VIAL (20MG/ML) ONE; +PROPOFOL IV EMULSION 10 MG/ML 20 ML VIAL ONE; +SODIUM CHLORIDE 0.9% 500ML 500 ML IV ONE
[2018-02-14 12:46] VITALS: TEMP 36.8
--- NOTE | 2018-02-14 13:42 | Endo History and Physical ---
History & Physical Date of Service: Feb 14, 2018. Chief Complaint: Davis's Esohagus Referring Physician: Dr. Birmingham History of Present Illness diarrhea; Hx barretts Past Medical History Gastrointestinal Disorder, Anxiety, Reflux, CHF, Hypertension Past Surgical History Hx Cardiac Surgery: No Hx Pacemaker: No Hx Abdominal Surgery: Yes (LAP MAHSA) Hx Post-Op Nausea and Vomiting: Yes (nausea) Hx Cancer Surgery: Yes (R BREAST LUMPECTOMY, PARTIAL MASTECTOMY) Hx Thoracic Surgery: No Hx Orthopedic: Yes (LEFT ROTATOR CUFF REPAIR,right foot repair of tendons) Hx Urinary Tract Surgery: No Family History None Social History Smoking Status: Never Smoker Hx Substance Use: Yes (THC Oil on Joints ) Hx Alcohol Use: No Allergies Coded Allergies: Morphine (Verified Adverse Reaction, Mild, HIVES, 02/14/18) Current Medications Reported Home Medications Medications Dose Route/Sig Max Daily Dose Days Date Category Dose Instructions Advil (Ibuprofen) 200 Mg Tab 400 Mg PO Q6 11/02/17 Reported Arimidex (Anastrozole) 1 Mg Tab 1 Tab PO DAILY 90 08/21/17 Reported Wants to start 11-13-17 after a follow up with Dr Mancia on , and she is to be scheduled for a dexa scan Os-Jorge Alberto 500 Plus D (Calcium/Vitamin D) Tab 1 Tab PO DAILY 08/21/17 Reported Norvasc (Amlodipine Besylate) 5 Mg Tab 5 Mg PO DAILY 03/09/17 Reported Ranitidine HCl 150 Mg Tab 150 Mg PO BID 90 11/14/16 Rx Normodyne (Labetalol HCl) 300 Mg Tab 300 Mg PO BID 11/24/15 Reported Vital Signs Weight (Kilograms): 101.82 Height (Feet): 5 Height (Inches): 7 Date Time Temp Pulse Resp B/P (MAP) Pulse Ox O2 Delivery O2 Flow Rate FiO2 02/14/18 12:46 36.8 68 20 150/84 (106) 96 Room Air Physical Exam General Appearance: WD/WN, no apparent distress Respiratory/Chest: Auscultation: breath sounds normal Cardiovascular: Heart Auscultation: RRR Abdomen: Bowel Sounds: normal Inspection & Palpation: soft, non-distended, no tenderness, guarding & rebound Assessment and Plan EGD with BE bx and duodenal bx
--- NOTE | 2018-02-14 14:13 | Discharge Instructions ---
Endoscopy Patient Instructions Date / Procedure(s) Performed Feb 14, 2018. Colonoscopy Allergy Information Coded Allergies: Morphine (Verified Adverse Reaction, Mild, HIVES, 02/14/18) Discharge Date / Findings Feb 14, 2018. HH; SSBE; mild nodular gastritis-antrum Medication Instructions Restart Stopped Medication(s): Reported Home Medications Medications Dose Route/Sig Max Daily Dose Days Date Category Dose Instructions Advil (Ibuprofen) 200 Mg Tab 400 Mg PO Q6 11/02/17 Reported Arimidex (Anastrozole) 1 Mg Tab 1 Tab PO DAILY 90 08/21/17 Reported Wants to start 5-1-18 after a follow up with Dr Mancia on , and she is to be scheduled for a dexa scan Os-Jorge Alberto 500 Plus D (Calcium/Vitamin D) Tab 1 Tab PO DAILY 08/21/17 Reported Norvasc (Amlodipine Besylate) 5 Mg Tab 5 Mg PO DAILY 03/09/17 Reported Ranitidine HCl 150 Mg Tab 150 Mg PO BID 11/14/16 Rx Normodyne (Labetalol HCl) 300 Mg Tab 300 Mg PO BID 11/24/15 Reported Take bentyl 10mg twice daily routinely OK to use Imodium up to 1 tab three times daily Reported Home Medications Medications Dose Route/Sig Max Daily Dose Days Date Category Dose Instructions Advil (Ibuprofen) 200 Mg Tab 400 Mg PO Q6 11/02/17 Reported Arimidex (Anastrozole) 1 Mg Tab 1 Tab PO DAILY 08/21/17 Reported Wants to start 5-1-18 after a follow up with Dr Mancia on , and she is to be scheduled for a dexa scan Os-Jorge Alberto 500 Plus D (Calcium/Vitamin D) Tab 1 Tab PO DAILY 08/21/17 Reported Norvasc (Amlodipine Besylate) 5 Mg Tab 5 Mg PO DAILY 03/09/17 Reported Ranitidine HCl 150 Mg Tab 150 Mg PO BID 90 11/14/16 Rx Normodyne (Labetalol HCl) 300 Mg Tab 300 Mg PO BID 11/24/15 Reported Take bentyl 10mg twice daily routinely OK to use Imodium up to 1 tab three times daily Provider Instructions Activity Restrictions - No exercising or heavy lifting for 24 hours. - Do not drink alcohol the day of the procedure. - Do not drive a car or operate machinery until the day after the procedure. - Do not make any important decisions or sign important papers in 24 hours after the procedure. Following Day: - Return to full activity which may include returning to work/school. Diet Start your diet with liquids and light foods (jello, soup, juice, toast). Then eat your usual diet if not nauseated. Treatment For Common After Affects For mild abdominal pain, bloating, or excessive gas: - Rest - Eat lightly - Lie on right side Follow-Up Information Follow-up with Dr. Birmingham as scheduled Anesthesia Information What You Should Know You have had a procedure that required some medicine to reduce anxiety and discomfort. This treatment is called moderate sedation. After receiving the treatment, you may be sleepy, but you will be able to breathe on your own. The effects of the treatment may last for several hours. Follow these instructions along with Activity/Diet recommendations noted above: * Do NOT do anything where dizziness or clumsiness would be dangerous. * Rest quietly at home today, then you can be up and about tomorrow. * Have a responsible person stay with you the rest of today. * You may have had an I.V. today. If so, you may take the dressing off later today. Recommendations Call your doctor if: * Trouble breathing * Continuous vomiting for more than 24 hours * Temperature above 101 degrees * Severe abdominal pain or bloating * Pain not relieved by pain medicine ordered * There is increased drainage or redness from any incision * A large amount of rectal bleeding greater than 2-3 tablespoons. (If you had a polyp/s removed or have hemorrhoids, a small amount of blood - from the rectum is to be expected.) * You have any unanswered questions or concerns. IN THE EVENT OF A SERIOUS EMERGENCY, GO TO THE NEAREST EMERGENCY ROOM Your discharge instructions were prepared by provider Andrea Mas. Patient Instructions Signature Page Elisabeth Kailajoshua Patient (or Guardian) Signature/Date: I have read and understand the instructions given to me by my caregivers. Caregiver/RN/Doctor Signature/Date: The above-named patient and/or guardian has received patient instructions on this date. + Original Patient Signature Page (only) stays with chart. Please make copy for patient.
--- NOTE | 2018-02-14 14:20 | GI REPORT ---
Patient Name: Elisabeth Espinal Procedure Date: 02/14/2018 1:40 PM Date of : 1955 Admit Type: Outpatient Age: 62 Gender: Female Attending MD: Andrea Mas MD Procedure: Upper GI endoscopy Providers: Andrea Mas MD Referring MD: Papi Molina Indications: Davis's esophagus Medicines: Propofol per Anesthesia Complications: No immediate complications. Estimated blood loss: None. Estimated Blood Loss: Estimated blood loss: none. Procedure: Pre-Anesthesia Assessment: - Prior to the procedure, a History and Physical was performed, and patient medications and allergies were reviewed. The patient's tolerance of previous anesthesia was also reviewed. The risks and benefits of the procedure and the sedation options and risks were discussed with the patient. All questions were answered, and informed consent was obtained. Prior Anticoagulants: The patient has taken no previous anticoagulant or antiplatelet agents. ASA Grade Assessment: II - A patient with mild systemic disease. After reviewing the risks and benefits, the patient was deemed in satisfactory condition to undergo the procedure. After obtaining informed consent, the endoscope was passed under direct vision. Throughout the procedure, the patient's blood pressure, pulse, and oxygen saturations were monitored continuously. The scope was introduced through the mouth, and advanced to the second part of duodenum. The upper GI endoscopy was accomplished without difficulty. The patient tolerated the procedure well. Findings: The upper third of the esophagus and middle third of the esophagus were normal. The esophagus and gastroesophageal junction were examined with white light. There were esophageal mucosal changes consistent with short-segment Davis's esophagus. These changes involved the mucosa at the upper extent of the gastric folds (37 cm from the incisors) extending to the Z-line (35 cm from the incisors). The maximum longitudinal extent of these esophageal mucosal changes was 2 cm in length. Mucosa was biopsied with a cold forceps for histology. Estimated blood loss was minimal. Verification of patient identification for the specimen was done by the physician and it technician using the patient's name and medical record number. A few mucosal papules (nodules) with no bleeding and no stigmata of recent bleeding were found in the gastric antrum. Biopsies were taken with a cold forceps for histology. Estimated blood loss was minimal. Verification of patient identification for the specimen was done by the physician and it technician using the patient's name and medical record number. The examined duodenum was normal. Biopsies for histology were taken with a cold forceps for evaluation of celiac disease. Estimated blood loss was minimal. Verification of patient identification for the specimen was done by the physician and it technician using the patient's name and medical record number. The cardia and gastric fundus were normal on retroflexion. Retained gastric contents are not identified on this exam. Impression: - Normal upper third of esophagus and middle third of esophagus. - Esophageal mucosal changes consistent with short-segment Davis's esophagus. Biopsied. - A few mucosal papules (nodules) found in the stomach. Biopsied. - Normal examined duodenum. Biopsied. Recommendation: - Discharge patient to home (ambulatory). - Resume regular diet. - Continue present medications. - Await pathology results. - Return to GI clinic as previously scheduled. - For diarrhea; Imodium 1 tablet up to three times daily and continue routine dose of Bentyl twice daily. Pt with hx of prior lap jessica. Trial of bile salt sequestrant may be considered MD Andrea Amaro MD 02/14/2018 2:20:39 PM This report has been signed electronically. Note Initiated On: 02/14/2018 1:40 PM Number of Addenda: 0 I attest to the content of the Intraoperative Record and orders documented therein, exceptions below {[id number]}
[2018-02-14 14:38] VITALS: BP 136/64; PULSE 64; O2SAT 98
--- NOTE | 2018-02-14 14:39 | Anesthesiology Progress Note ---
Anesthesia Post Op Note Date & Time Feb 14, 2018 at 14:39 Vital Signs Pain Intensity: 0 Vital Signs Past 12 Hours Date Time Temp Pulse Resp B/P (MAP) Pulse Ox O2 Delivery O2 Flow Rate FiO2 02/14/18 14:23 62 18 128/67 (87) 99 Room Air 02/14/18 14:08 63 16 125/69 (87) 94 Room Air 02/14/18 12:46 36.8 68 20 150/84 (106) 96 Room Air Notes Mental Status: alert / awake / arousable, participated in evaluation Pt Amnestic to Procedure: Yes Nausea / Vomiting: adequately controlled Pain: adequately controlled Airway Patency, RR, SpO2: stable & adequate BP & HR: stable & adequate Hydration State: stable & adequate Anesthetic Complications: no major complications apparent
== END | disposition home or self-care (01) ==
LOC: C.GI 12:06
PROVIDERS: ATTEND Internal Medicine Gastroenterology
DX: K22.70 Barrett's esophagus without dysplasia (principal); K31.89 Other diseases of stomach and duodenum; I11.0 Hypertensive heart disease with heart failure; I50.9 Heart failure, unspecified; Z85.3 Personal history of malignant neoplasm of breast; Z88.5 Allergy status to narcotic agent; Z79.899 Other long term (current) drug therapy; M19.90 Unspecified osteoarthritis, unspecified site

== ENCOUNTER → 2018-02-25 | Outpatient (CLI) | payer BC ==
[~2018-02-25] MED LIST changes: -LIDOCAINE HCL 2% 2 ML VIAL (20MG/ML) ONE; -PROPOFOL IV EMULSION 10 MG/ML 20 ML VIAL ONE; -SODIUM CHLORIDE 0.9% 500ML 500 ML IV ONE
== END | disposition home or self-care (01) ==
LOC: C.PAPS 13:48
PROVIDERS: ATTEND Obstetrics & Gynecology
DX: Z01.419 Encounter for gynecological examination (general) (routine) without abnormal findings (principal)

== ENCOUNTER 2023-02-28 11:26 | Observation (INO) ==
[2023-02-28 12:28] LABS: Albumin Globulin Ratio 1.5 (0.9-2); Albumin Level 4.3 gm/dl (3.4-5.0); BUN Creatinine Ratio 23.8 (10-20); Bilirubin,Total 0.3 mg/dl (0.2-1.0); Calcium 10.1 mg/dl (8.6-10.3); Creatinine Clr Calc Pharmacy 76.4 ml/min; Est GFR (African American) 82.8 ml/min; Est GFR (Non-African American) 71.4 ml/min; Globulin 2.9 gm/dl (2.5-4.0); Potassium 4.7 mmol/L (3.5-5.1); Total Protein 7.2 gm/dl (6.0-8.3)
[2023-02-28 12:37] LABS: Troponin I High Sensitivity 24.2 pg/ml (0-14)
[2023-02-28 12:40] LABS: INR 0.9 (0.9-1.1); Partial Thromboplastin Ratio 0.8; Partial Thromboplastin Time 21.8 Seconds (21.0-31.0); Prothrombin Time 10.3 Seconds (9.0-12.0)
--- NOTE | 2023-02-28 13:03 | XRay Report ---
XR chest 1V not portable CLINICAL HISTORY: Chest pain, nonspecific TECHNIQUE: Single frontal radiograph of the chest was obtained. Comparison: Comparison is made to chest radiograph 09/28/2022 FINDINGS: No lines and tubes are seen. Calcified aortic knob is seen. The lungs are clear. No evidence of pleur al effusion or pneumothorax. IMPRESSION: No acute chest disease. ACT 112: Negative or not required by law. Electronically signed by: Jigar Romero M.D. 02/28/2023 1:01 PM
[2023-02-28] MEDS ORDERED: ASPIRIN 81 MG CHEW PO STA (15:08)
[2023-02-28 15:10] LABS: Basophils # (auto) 0.04 K/uL (0-0.2); Basophils % (auto) 0.5 %; Eosinophils # (auto) 0.09 K/uL (0-0.50); Eosinophils % (auto) 1.1 %; Hematocrit (blood only) 36.4 % (37.0-47.0); Hemoglobin 11.9 g/dl (12.0-16.0); Immature Granulocytes # (auto) 0.02 K/uL (0.01-0.20); Immature Granulocytes % (auto) 0.3 %; Lymphocytes # (auto) 1.64 K/uL (1.2-3.4); Lymphocytes % (auto) 20.8 %; Mean Corpuscular Hemoglobin 27.5 pg (25.0-34.0); Mean Corpuscular Hgb Conc 32.7 g/dL (32.0-36.0); Mean Corpuscular Volume 84.1 fL (80.0-100.0); Mean Platelet Volume 9.5 fL (9.4-12.4); Monocytes # (auto) 0.58 K/uL (0.11-0.59); Monocytes % (auto) 7.4 %; Neutrophils % (auto) 69.9 %; Platelet Count 253 K/uL (130-400); RDW Coefficient of Variation 13.5 % (11.5-14.5); RDW Standard Deviation 41.4 fL (36.4-46.3); Red Blood Count 4.33 M/uL (4.20-5.40); White Blood Count 7.87 K/ul (4.8-10.8)
[2023-02-28] MEDS ORDERED: hydrALAZINE HCL 20 MG/ML VIAL IV STA (15:39)
--- NOTE | 2023-02-28 15:52 | Emergency Department Note ---
ED Provider Note History of Present Illness Chief Complaint: Chest Pain Stated Complaint: REF BY PCP; CHEST PAIN Time Seen by Provider: 02/28/23 14:30 Source: patient and family Mode of arrival: ambulatory Patient is a 67-year-old female with hx of DM, HLD, HTN, presenting with chest pain. Pt states it woke her up from sleep at 2am and has been intermittent since that time. She is experiencing radiation of pain down her left arm. Patient states when the pain is present it is sharp in nature and significantly substernal. Patient states the pain is not actively present but she has a dull pressure sensation to the center of her chest. Patient denies having any previous cardiac history no prior stress test or cardiac catheterizations. Patient states that her father in his 30s of cardiac issues. Home Medications Medication Instructions Recorded Confirmed Type melatonin 10 mg capsule 10 mg PO HS PRN Sleep 11/05/20 02/28/23 History hyoscyamine sulfate 0.125 mg 0.125 mg PO TID PRN dyspepsia #90 05/15/22 02/28/23 Rx sublingual tablet tabs dicyclomine 10 mg capsule 10 mg PO DAILY PRN 08/01/22 02/28/23 History tramadol 50 mg tablet 25 mg PO DAILY PRN breakthrough 09/13/22 02/28/23 Rx joint pain #10 tabs amlodipine 5 mg tablet 5 mg PO DAILY #90 tabs 11/15/22 02/28/23 Rx omeprazole 40 mg capsule,delayed 40 mg PO DAILY PRN 01/02/23 02/28/23 History release olmesartan 40 mg tablet 40 mg PO DAILY #90 tabs 01/17/23 02/28/23 Rx Allergies Allergy/AdvReac Type Severity Reaction Status Date / Time morphine Allergy Mild HIVES Verified 02/28/23 10:30 Past Med/Surg History Medical History B12 deficiency Breast cancer (~2016) Calcification of abdominal aorta on CT 03/2020 Gastroparesis GERD (gastroesophageal reflux disease) History of anesthesia reaction 2015 s/p Laparotomy experienced CHF symptoms. no problems currently. 2015 s/p vocal cord surgery/repair patient experienced pulmonary flash edema History of cancer of right breast Hyperlipidemia Hypertension Left ventricular hypertrophy Osteoarthritis Osteopenia Prediabetes SNHL (sensorineural hearing loss) Vocal cord nodule Surgical History H/O breast biopsy right H/O exploratory laparotomy Description: To repair bowel injury at time of laparoscopy for gallbladder. H/O laparoscopy exploratory Description: Diagnostic laparoscopy, running of the small bowel, laparoscopic cholecystectomy with cholangiogram 09/03/14 Dr. Rincon Repair Small bowel enterotomy 09/04/14 Dr. Rincon H/O partial mastectomy Right with lymph node removal H/O repair of left rotator cuff H/O shoulder surgery Right shoulder April 2010-rotator cuff repair History of colonoscopy History of ERCP History of esophagogastroduodenoscopy (EGD) History of foot surgery right foot-tendon repair History of incisional hernia repair Description: Repair of incisional hernia with 15cm surgimesh 11/30/15 Dr. Rincon Dinner Cook Nando Islas PA-C History of nasal surgery History of throat surgery to repair vocal cord injury that she indured during the emergency laparotomy 2014. Status post tubal ligation Family History Mother Hypertension Hearing loss Sister Allergies Other No family history of adverse response to anesthesia No family history of bleeding disorder Denies family history of Ovarian cancer Breast cancer Colorectal cancer Social History Smoking Status: Never smoker Second Hand Exposure: No; Do You Dip or Chew Tobacco: No; Hx Alcohol Use: No Hx Substance Use: No Preferred Language: Uzbek Communication Ability: Effective Manager Air Required: No Beliefs That Will Affect Care: None marital status: Current Living Situation: Spouse current occupational status: retired Feels Safe at Home: Yes Childhood Exposure to Second-Hand Smoke: No Dental Care, Regularly: No Physical Activity Frequency: Does not Exercise Seatbelt Use: always Sunscreen Use: Yes Assistive Devices: Glasses Physical Exam Vital Signs Vital Signs - 24 hr 02/28/23 11:28 02/28/23 14:41 02/28/23 14:41 Temperature 36.7 C Temperature Source Temporal Artery Scan Pulse Rate 75 Pulse Rate [Apical] 64 Pulse Rate from SpO2 Sensor Respiratory Rate 22 16 Respiratory Effort / Characteristics Non-Labored Non-Labored Respiratory Depth Normal Normal Respiratory Pattern Regular Blood Pressure 213/81 H Blood Pressure [Left Arm] 193/84 H Blood Pressure Mean 125 Blood Pressure Mean [Left Arm] 120 Pulse Oximetry 98 99 Oxygen Delivery Method Room Air Room Air Room Air Sepsis Recent Fever Within 48 Hours No Sepsis New/Unexplained Change in Mental Status No Sepsis Action Taken by Nursing No Action Required 02/28/23 14:48 02/28/23 14:44 02/28/23 15:00 Temperature Temperature Source Pulse Rate 68 62 68 Pulse Rate [Apical] Pulse Rate from SpO2 Sensor 62 68 Respiratory Rate 18 19 Respiratory Effort / Characteristics Respiratory Depth Respiratory Pattern Blood Pressure Blood Pressure [Left Arm] Blood Pressure Mean Blood Pressure Mean [Left Arm] Pulse Oximetry 97 97 Oxygen Delivery Method Sepsis Recent Fever Within 48 Hours Sepsis New/Unexplained Change in Mental Status Sepsis Action Taken by Nursing 02/28/23 15:13 02/28/23 15:13 02/28/23 15:30 Temperature Temperature Source Pulse Rate 72 Pulse Rate [Apical] Pulse Rate from SpO2 Sensor 72 Respiratory Rate 23 Respiratory Effort / Characteristics Respiratory Depth Respiratory Pattern Blood Pressure 200/92 H 187/84 H Blood Pressure [Left Arm] Blood Pressure Mean 151 125 Blood Pressure Mean [Left Arm] Pulse Oximetry 98 Oxygen Delivery Method Sepsis Recent Fever Within 48 Hours Sepsis New/Unexplained Change in Mental Status Sepsis Action Taken by Nursing 02/28/23 15:30 Temperature Temperature Source Pulse Rate 65 Pulse Rate [Apical] Pulse Rate from SpO2 Sensor 66 Respiratory Rate 19 Respiratory Effort / Characteristics Respiratory Depth Respiratory Pattern Blood Pressure Blood Pressure [Left Arm] Blood Pressure Mean Blood Pressure Mean [Left Arm] Pulse Oximetry 99 Oxygen Delivery Method Sepsis Recent Fever Within 48 Hours Sepsis New/Unexplained Change in Mental Status Sepsis Action Taken by Nursing GENERAL: Well appearing, well nourished, EYE EXAM: Normal conjunctiva. OROPHARYNX: Moist mucus membranes. NECK: Supple, LUNGS: Clear to auscultation. Normal chest wall mechanics. HEART: NSR, no MRG. ABDOMEN: Abdomen soft, non-tender, normo-active bowel sounds, no masses, no rebound or guarding BACK: No CVA TTP. SKIN: No rashes and no bruising. UPPER EXTREMITIES: Upper extremities are grossly normal LOWER EXTREMITIES: Grossly normal, no edema. NEURO EXAM: A&O x3, , normal speech, moves all 4 extremities on command w/o issue. Course Administered Medications Discontinued Medications Aspirin (Aspirin 81 Mg Chew) 324 mg PO NOW STA Stop: 02/28/23 15:09 Last Admin: 02/28/23 15:38 Dose: 324 mg Documented By: RSCasimiro Medical Decision Making Medical Records Attestation: I reviewed the patient's medical records. Home Medications was personally reviewed by me Laboratory Data Attestation: I reviewed the patient's lab results. 02/28/23 14:54 02/28/23 11:50 Lab Results 02/28/23 02/28/23 02/28/23 Range/Units 11:50 11:50 11:50 WBC Cancelled RBC Cancelled Hgb Cancelled Hct Cancelled MCV Cancelled MCH Cancelled MCHC Cancelled RDW Std Deviation Cancelled RDW Coeff of Rosa Maria Cancelled Plt Count Cancelled MPV Cancelled Immature Gran % (Auto) Cancelled Neut % (Auto) Cancelled Lymph % (Auto) Cancelled Marshall % (Auto) Cancelled Eos % (Auto) Cancelled Baso % (Auto) Cancelled Neut # (Auto) Cancelled Lymph # (Auto) Cancelled Marshall # (Auto) Cancelled Eos # (Auto) Cancelled Baso # (Auto) Cancelled Immature Gran # (Auto) Cancelled Absolute Nucleated RBC Cancelled Nucleated RBC % (auto) Cancelled Neutrophils % (Manual) Cancelled Band Neutrophils % Cancelled Lymphocytes % (Manual) Cancelled Prolymphocyte % Cancelled Reactive Lymphs % (Man) Cancelled Monocytes % (Manual) Cancelled Eosinophils % (Manual) Cancelled Basophils % (Manual) Cancelled Metamyelocytes % (Man) Cancelled Myelocytes % (Man) Cancelled Promyelocytes % (Man) Cancelled Blast Cells % (Manual) Cancelled Plasma Cell % (Manual) Cancelled Other Cells % Cancelled Nucleated RBC % Cancelled Neutrophils # (Manual) Cancelled Band Neutrophils # Cancelled Total Absolute Neuts Cancelled Lymphocytes # (Manual) Cancelled Prolymphocyte # Cancelled Reactive Lymphs # Cancelled Total Abs Lymphocytes Cancelled Monocytes # (Manual) Cancelled Eosinophils # (Manual) Cancelled Basophils # (Manual) Cancelled Metamyelocytes # (Man) Cancelled Myelocytes # (Manual) Cancelled Promyelocytes # (Man) Cancelled Blast Cells # (Man) Cancelled Plasma Cell # (Manual) Cancelled Other Cells # Cancelled Nucleated RBCs # (Man) Cancelled Hypersegmented Neuts Cancelled Hyposegmented Neuts Cancelled Hypogranular Neuts Cancelled Large Granular Lymphs Cancelled # Lrg Granular Lymphs Cancelled Hairy Cells Cancelled Smudge Cells Cancelled Toxic Granulation Cancelled Toxic Vacuolation Cancelled Dohle Bodies Cancelled Jamal Rods Cancelled Platelet Estimate Cancelled Hypogranular Platelets Cancelled Giant Platelets Cancelled Platelet Satelliting Cancelled RBC Morphology Cancelled Polychromasia Cancelled Hypochromasia Cancelled Poikilocytosis Cancelled Basophilic Stippling Cancelled Anisocytosis Cancelled Microcytosis Cancelled Macrocytosis Cancelled Spherocytes Cancelled Pappenheimer Bodies Cancelled Sickle Cells Cancelled Target Cells Cancelled Tear Drop Cells Cancelled Ovalocytes Cancelled Stomatocytes Cancelled Monroy-Gandy Bodies Cancelled Echinocytes Cancelled Acanthocytes (Spur) Cancelled Rouleaux Cancelled RBC Agglutinates Cancelled Schistocytes Cancelled Sezary Cell Cancelled PT 10.3 (9.0-12.0) Seconds INR 0.9 (0.9-1.1) APTT 21.8 (21.0-31.0) Seconds PTT Ratio 0.8 Sodium 141 (136-145) mmol/L Potassium 4.7 (3.5-5.1) mmol/L Chloride 108 H (98-107) mmol/L Carbon Dioxide 26 (21-32) mmol/L Anion Gap 7 (3-11) BUN 20 (6-23) mg/dl Creatinine 0.84 (0.6-1.2) mg/dl Est Cr Clr Drug Dosing 76.4 ml/min Est GFR ( Amer) 82.8 ml/min Est GFR (Non-Af Amer) 71.4 ml/min BUN/Creatinine Ratio 23.8 H (10-20) Glucose 147 H (70-99(Fasting)) mg/dl Calcium 10.1 (8.6-10.3) mg/dl Total Bilirubin 0.3 (0.2-1.0) mg/dl AST 16 (13-39) U/L ALT 11 (7-52) U/L Alkaline Phosphatase 74 (34-104) U/L Troponin I High Sens 24.2 H (0-14) pg/ml Total Protein 7.2 (6.0-8.3) gm/dl Albumin 4.3 (3.4-5.0) gm/dl Globulin 2.9 (2.5-4.0) gm/dl Albumin/Globulin Ratio 1.5 (0.9-2) Blood Parasites ID Cancelled 02/28/23 Range/Units 14:54 WBC 7.87 RBC 4.33 Hgb 11.9 L Hct 36.4 L MCV 84.1 MCH 27.5 MCHC 32.7 RDW Std Deviation 41.4 RDW Coeff of Rosa Maria 13.5 Plt Count 253 MPV 9.5 Immature Gran % (Auto) 0.3 Neut % (Auto) 69.9 Lymph % (Auto) 20.8 Marshall % (Auto) 7.4 Eos % (Auto) 1.1 Baso % (Auto) 0.5 Neut # (Auto) 5.50 Lymph # (Auto) 1.64 Marshall # (Auto) 0.58 Eos # (Auto) 0.09 Baso # (Auto) 0.04 Immature Gran # (Auto) 0.02 Absolute Nucleated RBC Nucleated RBC % (auto) Neutrophils % (Manual) Band Neutrophils % Lymphocytes % (Manual) Prolymphocyte % Reactive Lymphs % (Man) Monocytes % (Manual) Eosinophils % (Manual) Basophils % (Manual) Metamyelocytes % (Man) Myelocytes % (Man) Promyelocytes % (Man) Blast Cells % (Manual) Plasma Cell % (Manual) Other Cells % Nucleated RBC % Neutrophils # (Manual) Band Neutrophils # Total Absolute Neuts Lymphocytes # (Manual) Prolymphocyte # Reactive Lymphs # Total Abs Lymphocytes Monocytes # (Manual) Eosinophils # (Manual) Basophils # (Manual) Metamyelocytes # (Man) Myelocytes # (Manual) Promyelocytes # (Man) Blast Cells # (Man) Plasma Cell # (Manual) Other Cells # Nucleated RBCs # (Man) Hypersegmented Neuts Hyposegmented Neuts Hypogranular Neuts Large Granular Lymphs # Lrg Granular Lymphs Hairy Cells Smudge Cells Toxic Granulation Toxic Vacuolation Dohle Bodies Jamal Rods Platelet Estimate Hypogranular Platelets Giant Platelets Platelet Satelliting RBC Morphology Polychromasia Hypochromasia Poikilocytosis Basophilic Stippling Anisocytosis Microcytosis Macrocytosis Spherocytes Pappenheimer Bodies Sickle Cells Target Cells Tear Drop Cells Ovalocytes Stomatocytes Monroy-Gandy Bodies Echinocytes Acanthocytes (Spur) Rouleaux RBC Agglutinates Schistocytes Sezary Cell PT (9.0-12.0) Seconds INR (0.9-1.1) APTT (21.0-31.0) Seconds PTT Ratio Sodium (136-145) mmol/L Potassium (3.5-5.1) mmol/L Chloride (98-107) mmol/L Carbon Dioxide (21-32) mmol/L Anion Gap (3-11) BUN (6-23) mg/dl Creatinine (0.6-1.2) mg/dl Est Cr Clr Drug Dosing ml/min Est GFR ( Amer) ml/min Est GFR (Non-Af Amer) ml/min BUN/Creatinine Ratio (10-20) Glucose (70-99(Fasting)) mg/dl Calcium (8.6-10.3) mg/dl Total Bilirubin (0.2-1.0) mg/dl AST (13-39) U/L ALT (7-52) U/L Alkaline Phosphatase (34-104) U/L Troponin I High Sens (0-14) pg/ml Total Protein (6.0-8.3) gm/dl Albumin (3.4-5.0) gm/dl Globulin (2.5-4.0) gm/dl Albumin/Globulin Ratio (0.9-2) Blood Parasites ID Imaging Data Attestation: I personally reviewed and interpreted this imaging study as follows: Radiologist's Impression: Chest X-Ray 02/28/23 11:32 XR chest 1V not portable CLINICAL HISTORY: Chest pain, nonspecific TECHNIQUE: Single frontal radiograph of the chest was obtained. Comparison: Comparison is made to chest radiograph 09/28/2022 FINDINGS: No lines and tubes are seen. Calcified aortic knob is seen. The lungs are clear. No evidence of pleural effusion or pneumothorax. IMPRESSION: No acute chest disease. ACT 112: Negative or not required by law. Electronically signed by: Jigar Romero M.D. 02/28/2023 1:01 PM [facility] Narrative History of present illness; patient ER course: Patient is a 67-year-old female with history of diabetes hypertension hyperlipidemia presenting with chest pain intermittent episodes. Patient's EKG without signs of ischemia. Patient's first troponin is slightly elevated. Patient was given full dose aspirin in the emergency room. Patient refused nitroglycerin at this time. Patient's vitals are stable. Patient will have second troponin drawn and will be kept for observation with the hospital service further treatment evaluation. Consult: Hospitalist accepts patient for further treatment and evaluation to their service Labs (independently interpreted) are significant; troponin slightly elevated at 24 Imaging results (independently interpreted): Chest x-ray clear EKG interpretation (independently interpreted): Sinus rhythm with no ST segment elevation or depressions This note was dictated using [employer] which is a voice operative dictation device. Any typographical errors are not intentional. Impression Chest pain Discharge Plan Visit Data Chief Complaint: Chest Pain Stated Complaint: REF BY PCP; CHEST PAIN ED Provider: Daryl Pozo Discharge Problem: Chest pain Patient Disposition: Admitted As Inpatient Forms Stand Alone Forms: [facility] [employer] [place] Prescriptions Prescriptions: No Action hyoscyamine sulfate 0.125 mg tablet, sublingual 0.125 mg PO TID PRN (Reason: dyspepsia) Qty: 90 1RF amlodipine 5 mg tablet 5 mg PO DAILY Qty: 90 3RF Rx Instructions: d/c combination med amlodipine/olmesartan. olmesartan 40 mg tablet 40 mg PO DAILY Qty: 90 1RF omeprazole 40 mg capsule,delayed release(DR/EC) 40 mg PO DAILY PRN tramadol 50 mg tablet 25 mg PO DAILY PRN (Reason: breakthrough joint pain) Qty: 10 0RF melatonin 10 mg capsule 10 mg PO HS PRN (Reason: Sleep) dicyclomine 10 mg capsule 10 mg PO DAILY PRN Referrals Referrals: Sarah Quach MD [Primary Care Provider] -
--- NOTE | 2023-02-28 15:52 | Electrocardiogram Report ---
Test Reason : Blood Pressure : / mmHG Vent. Rate : 069 BPM Atrial Rate : 069 BPM P-R Int : 168 ms QRS Dur : 080 ms QT Int : 392 ms P-R-T Axes : 042 -05 021 degrees QTc Int : 420 ms Normal sinus rhythm Cannot rule out Anterior infarct (cited on or before 28-SEP-2022) Abnormal ECG When compared with ECG of 28-SEP-2022 16:13, No significant change was found Confirmed by Marito Hernandez [id number]) on 02/28/2023 3:52:15 PM Referred By: Confirmed By:Marito Hernandez
[2023-02-28] MEDS ORDERED: NITROGLYCERIN SL 0.4 MG/TAB TAB SL STA (16:02)
--- NOTE | 2023-02-28 16:21 | History & Physical Report ---
Date of Service February 28, 2023 Assessment & Plan (1) Chest pain: Plan: Acute/unstable - high risk - Place in observation to pcu/tele, story very suspicious for unstable angina - Cardiac diet - Reviewed HS trop, elevated at 24, still having chest pain, ordered STAT dose of SL Nitro - Serial HS trop, repeat pending and another scheduled for 2129 tonight - Echocardiogram - Add daily ASA - Nitropaste q6 to start at 1800, morphine if still with unrelieved breakthrough chest pain - Consult cardiology to determine if most appropriate for stress testing versus [facility], appreciate recommendations (2) History of cancer of right breast: Plan: Chronic/stable - S/p lumpectomy, lymph node excision, and radiation - Obtain a ddimer to exclude possibility of PE - If elevated, check CTA chest (3) Hypertension: Plan: Acute/unstable - moderate risk - Pt currently with hypertensive urgency - Ordered a dose of IV Hydralazine 10mg x1 now - Nitropaste q6 as above - Continue Olmesartan 40mg daily and Norvasc 5mg daily - May need to adjust meds for adequate BP control (4) Hyperlipidemia: Plan: Chronic/unstable - Check fasting lipid panel in AM - Add Atorvastatin 40mg qHS (5) GERD (gastroesophageal reflux disease): Plan: Chronic/stable - Continue PPI Plan CBC, CMP reviewed. Lovenox for VTE ppx. Plan as outlined above. Discussed with Dr. Sharma who has also seen and evaluated this patient and agrees with above plan. Further orders will be implemented as warranted. History of Present Illness Chief Complaint: Chest pain Primary Care Provider: Sarah Quach MD Elisabeth Espinal is a pleasant 67 yo F with a pmhx of HTN, breast ca s/p lumpectomy, lymph node excision, and radiation, hyperlipidemia, OA and GERD who presented to the ER today c/o chest pain. Patient reports that she was awakened from sleep around 0230 this AM with left sided substernal chest pain that radiated into her neck and down her left arm, was associated with left arm paresthesias and nausea. She denies diaphoresis or shortness of breath. She indicates that was recently weaned off of Labetolol by her PCP but to compensate for this, her Olmesartan was increased from 20mg to 40mg. She is also on Norvasc 5mg daily for her blood pressure. Despite this, when she awoke, her blood pressure was in the 190s systolic and she took a dose of the left over Labetolol 50mg that she had at home. She laid back down and awoke a few hours later and the chest pain was still there. When the chest pain first occurred it was almost a 10/10 on the pain scale. She contacted her PCP due to the persistent pain and an appointment was arranged for 1030am. She was seen in the office, an EKG was performed which did not show any acute findings and she was subsequently referred to the ER for further work up. Her work up in the ED is notable for a nonacute EKG and an elevated HS trop of 24 with a repeat pending. Her blood pressure is markedly elevated at 193/84. Pt was medicated with a dose of ASA 324mg po x1 and referred for admission. Allergies Allergy/AdvReac Type Severity Reaction Status Date / Time morphine Allergy Mild HIVES Verified 02/28/23 16:15 Home Medications Medication Instructions Recorded Confirmed Type melatonin 10 mg capsule 10 mg PO HS PRN Sleep 11/05/20 02/28/23 History hyoscyamine sulfate 0.125 mg 0.125 mg PO TID PRN dyspepsia #90 05/15/22 02/28/23 Rx sublingual tablet tabs dicyclomine 10 mg capsule 10 mg PO DAILY PRN Cramps 08/01/22 02/28/23 History tramadol 50 mg tablet 25 mg PO DAILY PRN breakthrough 09/13/22 02/28/23 Rx joint pain #10 tabs amlodipine 5 mg tablet 5 mg PO DAILY #90 tabs 11/15/22 02/28/23 Rx omeprazole 40 mg capsule,delayed 40 mg PO DAILY PRN Gi Upset 01/02/23 02/28/23 History release olmesartan 40 mg tablet 40 mg PO DAILY #90 tabs 01/17/23 02/28/23 Rx Past Med/Surg History Medical History B12 deficiency Breast cancer (~2016) Calcification of abdominal aorta on CT 03/2020 Gastroparesis GERD (gastroesophageal reflux disease) History of anesthesia reaction 2015 s/p Laparotomy experienced CHF symptoms. no problems currently. 2014 s/p vocal cord surgery/repair patient experienced pulmonary flash edema History of cancer of right breast Hyperlipidemia Hypertension Left ventricular hypertrophy Osteoarthritis Osteopenia Prediabetes SNHL (sensorineural hearing loss) Vocal cord nodule Surgical History H/O breast biopsy right H/O exploratory laparotomy Description: To repair bowel injury at time of laparoscopy for gallbladder. H/O laparoscopy exploratory Description: Diagnostic laparoscopy, running of the small bowel, laparoscopic cholecystectomy with cholangiogram 09/03/14 Dr. Rincon Repair Small bowel enterotomy 09/04/14 Dr. Rincon H/O partial mastectomy Right with lymph node removal H/O repair of left rotator cuff H/O shoulder surgery Right shoulder April 2010-rotator cuff repair History of colonoscopy History of ERCP History of esophagogastroduodenoscopy (EGD) History of foot surgery right foot-tendon repair History of incisional hernia repair Description: Repair of incisional hernia with 15cm surgimesh 11/30/15 Dr. Rincon Rn Cardiac Rehab Nando Islas PA-C History of nasal surgery History of throat surgery to repair vocal cord injury that she indured during the emergency laparotomy 2014. Status post tubal ligation Family History Mother Hypertension Hearing loss Sister Allergies Other No family history of adverse response to anesthesia No family history of bleeding disorder Denies family history of Ovarian cancer Breast cancer Colorectal cancer Social History Smoking Status: Never smoker Second Hand Exposure: No; Do You Dip or Chew Tobacco: No; Hx Alcohol Use: No Hx Substance Use: No Preferred Language: Estonian Communication Ability: Effective County Attorney Required: No Beliefs That Will Affect Care: None marital status: Current Living Situation: Spouse current occupational status: retired Feels Safe at Home: Yes Childhood Exposure to Second-Hand Smoke: No Dental Care, Regularly: No Physical Activity Frequency: Does not Exercise Seatbelt Use: always Sunscreen Use: Yes Assistive Devices: Glasses Review of Systems Review of Systems: All systems reviewed and are unremarkable except as noted in HPI and below. Denies fever, chills, fatigue, headache, nasal congestion, sore throat, cough, shortness of breath, palpitations, orthopnea, PND, abdominal pain, v/d, constipation, dysuria, hematuria, frequency, back pain, joint pain or swelling, easy bruising or bleeding, skin lesions or rashes. Physical Exam Physical Exam: GENERAL: 67 yo Well-developed, well-nourished F. NAD. LUNGS: Clear to auscultation bilaterally. No accessory muscle use. No W/R/R. CARDIOVASCULAR: Regular rate and rhythm. No M/G/R. No JVD. L chest wall is TTP. ABDOMEN: Soft, non-tender and non-distended. BS normoactive x 4 quad. EXTREMITIES: No edema. Non-tender. Peripheral pulses +2/4. NEUROLOGIC: A&O x3. No focal neurological deficits. CN II-XII grossly intact. PSYCHIATRIC: Cooperative. Appropriate mood and affect. SKIN: Warm, dry, intact. No rashes or lesions. Results & Data Results & Data Vital Signs (Past 12 Hours) Vital Signs Temp Pulse Pulse Resp BP BP Pulse Ox 02/28/23 15:30 65 19 99 02/28/23 15:30 187/84 H 02/28/23 15:13 200/92 H 02/28/23 15:13 72 23 98 02/28/23 15:00 68 19 97 02/28/23 14:44 62 18 97 02/28/23 14:48 68 02/28/23 14:41 64 16 193/84 H 99 02/28/23 14:41 02/28/23 11:28 36.7 C 75 22 213/81 H 98 O2 Del Method 02/28/23 15:30 02/28/23 15:30 02/28/23 15:13 02/28/23 15:13 02/28/23 15:00 02/28/23 14:44 02/28/23 14:48 02/28/23 14:41 Room Air 02/28/23 14:41 Room Air 02/28/23 11:28 Room Air Laboratory Results 02/28/23 14:54 02/28/23 11:50 Diagnostic Findings Chest X-Ray 02/28/23 11:32 XR chest 1V not portable CLINICAL HISTORY: Chest pain, nonspecific TECHNIQUE: Single frontal radiograph of the chest was obtained. Comparison: Comparison is made to chest radiograph 09/28/2022 FINDINGS: No lines and tubes are seen. Calcified aortic knob is seen. The lungs are clear. No evidence of pleural effusion or pneumothorax. IMPRESSION: No acute chest disease. ACT 112: Negative or not required by law. Electronically signed by: Jigar Romero M.D. 02/28/2023 1:01 PM Supervising Physician Co-Signing Physician Notes The patient was seen and examined by me. The chart was reviewed. Case discussed with WINNIE Bonilla. Agree with assessment and plan PG Care Time/CCT Total # of Minutes Spent Total Time Spent with Patient: Total time spent is greater than 50% in coordination of care (as documented) at patient's floor/unit and/or counseling patient: Coding Level of Care Code 78890 INT INP/OBS CARE 3/75MIN Diagnoses Chest pain R07.9 History of cancer of right breast Z85.3 Hypertension I10 Hyperlipidemia E78.5 GERD (gastroesophageal reflux disease) K21.9
[2023-02-28] MEDS ORDERED: MoRPHine SULFATE 2 MG/ML CARP IV PRN (17:44)
[2023-02-28] MEDS ORDERED: MAGNESIUM HYDROXIDE SUSP 30 ML UDC PO PRN (17:44)
[2023-02-28] MEDS ORDERED: POLYETHYLENE (MIRALAX) 17 GM PACK PO PRN (17:44)
[2023-02-28] MEDS ORDERED: ALUMINUM/MAGNESIUM SUSP 30 ML UDC PO PRN (17:44)
[2023-02-28] MEDS ORDERED: HYOSCYAMINE SULFATE 0.125 MG TAB PO PRN (18:03)
[2023-02-28] MEDS: NITROGLYCERIN 2% OINTMENT 30GM TUBE EXT SCH (18:17)
[2023-02-28 19:40] LABS: D Dimer 560 ug/L FEU (0-500)
[2023-02-28] MEDS: ACETAMINOPHEN 325 MG TAB PO PRN (19:49)
[2023-02-28] MEDS ORDERED: ATORVASTATIN 40 MG TAB PO SCH (21:00)
[2023-02-28] MEDS ORDERED: IOVERSOL 350 MG 125mL Prefilled Syringe IV ONE (21:38)
[2023-02-28] MEDS ORDERED: HYDROmorphone INJ 0.5 MG/0.5 ML SYR IV STA (21:47)
[2023-02-28] MEDS ORDERED: KETOROLAC TROMETHAMINE 15 MG/ML VIAL IV ONE (21:57)
[2023-02-28] MEDS: MELATONIN 3 MG TAB PO PRN (22:02)
--- NOTE | 2023-02-28 23:04 | CT Scan Report ---
Exam(s): CTA CHEST IV Amt: 119ML OPTIRAY 350 EXAM: CT Angiography Chest With Intravenous Contrast CLINICAL HISTORY: Reason for exam: r/o dvt/pe. TECHNIQUE: Axial computed tomographic angiography images of the chest with intravenous contrast. CTDI is 40 mGy and DLP is 988.06 mGy-cm. Automated exposure control was utilized for the study. A dose lowering technique was utilized adhering to the principles of ALARA. MIP reconstructed images were created and reviewed. COMPARISON: No relevant prior studies available. FINDINGS: Pulmonary arteries: Unremarkable. No acute pulmonary embolism. Aorta: Atherosclerotic changes of the aorta, with coronary involvement. No thoracic aortic aneurysm. Lungs: Unremarkable. No mass. No consolidation. Pleural space: Unremarkable. No focal infiltrate, pleural effusion, or pneumothorax. Heart: Cardiomegaly. Bones/joints: Degenerative changes of the spine. No acute fracture. No dislocation. Soft tissues: Unremarkable. Lymph nodes: Unremarkable. No enlarged lymph nodes. Gallbladder and bile ducts: Cholecystectomy. IMPRESSION: 1. No acute pulmonary embolism. 2. No focal infiltrate, pleural effusion, or pneumothorax. Electronically signed by: Rashaad Meza MD 02/28/23 23:03 PM
[2023-02-28] MEDS ORDERED: LORazepam 1 MG TAB PO STA (23:34)
[2023-03-01] MEDS: NITROGLYCERIN 2% OINTMENT 30GM TUBE EXT SCH ×5 (01:06→23:51)
[2023-03-01 06:20] LABS: Basophils # (auto) 0.03 K/uL (0-0.2); Basophils % (auto) 0.4 %; Eosinophils # (auto) 0.18 K/uL (0-0.50); Eosinophils % (auto) 2.7 %; Hematocrit (blood only) 35.9 % (37.0-47.0); Hemoglobin 11.7 g/dl (12.0-16.0); Immature Granulocytes # (auto) 0.01 K/uL (0.01-0.20); Immature Granulocytes % (auto) 0.1 %; Lymphocytes # (auto) 1.49 K/uL (1.2-3.4); Mean Corpuscular Hemoglobin 27.3 pg (25.0-34.0); Mean Corpuscular Hgb Conc 32.6 g/dL (32.0-36.0); Mean Corpuscular Volume 83.9 fL (80.0-100.0); Mean Platelet Volume 9.4 fL (9.4-12.4); Monocytes # (auto) 0.58 K/uL (0.11-0.59); Monocytes % (auto) 8.6 %; Neutrophils # (auto) 4.48 K/uL (1.40-6.50); Neutrophils % (auto) 66.2 %; Platelet Count 228 K/uL (130-400); RDW Coefficient of Variation 13.8 % (11.5-14.5); Red Blood Count 4.28 M/uL (4.20-5.40); White Blood Count 6.77 K/ul (4.8-10.8)
[2023-03-01 07:16] LABS: BUN Creatinine Ratio 23.5 (10-20); Calcium 9.5 mg/dl (8.6-10.3); Chol HDL Ratio 4.8 (0-5); Creatinine Clr Calc Pharmacy 75.4 ml/min; Est GFR (African American) 81.6 ml/min; Est GFR (Non-African American) 70.4 ml/min; Potassium 4.1 mmol/L (3.5-5.1)
--- NOTE | 2023-03-01 07:21 | Hospitalist Progress Note ---
Date of Service March 01, 2023 Assessment & Plan (1) Chest pain: (2) History of cancer of right breast: (3) Prediabetes: (4) Calcification of abdominal aorta: Plan Pt is a 67 yo female with a past medical history of HTN, HLD, GERD, prediabetes, and hx of R breast cancer who presents on 02/28/23 for chest pain. #Chest pain Plan: Acute/unstable - high risk - Place in observation to pcu/tele, story very suspicious for unstable angina - Reviewed HS trop, elevated at 24, still having chest pain, ordered STAT dose of SL Nitro - Nitropaste q6 to start at 1800, morphine if still with unrelieved breakthrough chest pain - trop 24 -> 40 ->38 - continue daily ASA - Consulted cardiology; to do cath this afternoon #History of cancer of right breast Plan: Chronic/stable - S/p lumpectomy, lymph node excision, and radiation - Obtain a ddimer to exclude possibility of PE - If elevated, check CTA chest #Hypertension Plan: Acute/unstable - moderate risk - Pt currently with hypertensive urgency - Ordered a dose of IV Hydralazine 10mg x1 now - Nitropaste q6 as above - Continue Olmesartan 40mg daily and Norvasc 5mg daily - May need to adjust meds for adequate BP control #Hyperlipidemia Plan: Chronic/unstable - continue Atorvastatin 40mg qHS #GERD (gastroesophageal reflux disease) Plan: Chronic/stable - Continue PPI VTE ppx: Lovenox Code status: Full Admission and Anticipated Discharge Date Admission Date: February 28, 2023 Supervising Physician Co-Signing Physician Notes I personally examined the patient and verified all hull points of history and exam, discussed case, and agree with decision making with Dr Hathaway chest pain gone, (+) nausea vitals noted fatigued and nauseated appearing heent nc at mmm breathing unlabored no accessory muscles good effort skin no rashes no pallor or icterus unstable angina/CAD - s/p RCA stenting. med management, lifestyle change. for tonight - nausea management otherwise as above Subjective Pt is a 67 yo female with a past medical history of HTN, HLD, GERD, prediabetes, and hx of R breast cancer who presents on 02/28/23 for chest pain. Today, pt states that she is feeling okay and that her chest pain has improved, but she did not get to sleep much last night so she is mostly feeling very tired today. Otherwise, she has no questions or complaints at this time and is just waiting to see cardiology Review of Systems Review of Systems: Constitutional: denies fever, chills, Cardio: + but improved chest pain, no palpitations Resp: denies shortness of breath, cough GI: denies abdominal pain, nausea, vomiting, Physical Exam Physical Exam: General:Alert and oriented, no acute distress, HEENT: Normocephalic, moist oral mucosa, Cardio: Regular rate and rhythm, no murmur, Resp:Lungs clear to auscultation b/l, no wheezes or rhonchi, Skin: Warm, pink, dry, Psych: Mood-affect congruence. Results & Data Results & Data Vital Signs (Past 12 Hours) Vital Signs Temp Pulse Pulse Resp BP Pulse Ox O2 Del Method 03/01/23 03:52 36.5 C 72 18 134/71 98 Room Air 03/01/23 00:43 66 02/28/23 23:13 36.6 C 75 18 155/68 H 97 Room Air 02/28/23 22:06 152/78 H 02/28/23 21:45 85 198/74 H 98 Room Air Resident Activity Tracking Resident Involvement: Resident Care Provided Care Provided: Adult Hospital Medicine
[2023-03-01] MEDS: amLODIPine BESYLATE 5 MG TAB PO SCH (08:57)
[2023-03-01] MEDS: ASPIRIN 81 MG ECTAB PO SCH (08:57)
[2023-03-01] MEDS: LOSARTAN POTASSIUM 50 MG TAB PO SCH (08:57)
--- NOTE | 2023-03-01 10:04 | Cardiology Consultation ---
Date of Consultation March 01, 2023 Assessment & Plan (1) Chest pain: (2) Elevated troponin I level: (3) Left ventricular hypertrophy: (4) Hypertension: Mrs. Espinal is a 67-year-old female with a history of Moderate Concentric LVH, Uncontrolled Hypertension, Dyslipidemia, Calcifications of the Aorta, Prediabetes, [id number] MR, Trace TR, Family History of Premature CAD, and Breast Cancer s/p Right Breast Lumpectomy, [place] Node Biopsy, and Radiation Treatments 2017 who was admitted to [facility] on 02/28/23 with Unstable Angina Pectoris secondary to an unstable plaque/CAD vs Demand Ischemia related to Uncontrolled Hypertension in the presence of LVH +/- CAD. Patient has been in her usual state of health leading up to this admission. However he was awakened at 0230 in the fourdrinier machine tender of 02/28/23 with left substernal chest pain which radiated to her left neck, left arm, with some associated left arm paresthesias and nausea. She did not have any associated symptoms otherwise, no associated vomiting, diaphoresis, or dyspnea. Patient states that her symptoms lasted for up to an hour. She got up and checked her blood pressure and her systolic BP was 190s. Patient subsequently went back to bed, and contacted her PCP. She was seen in her PCP's office where an EKG was done showing no acute changes. They subsequently referred her to the ER for further evaluation and treatment. Patient has continued to experience intermittent chest pressure and pain although it has not been as severe. For example when she was up getting washed up today she develops symptoms, and then lied back down in her hospital bed. Eventually the symptoms resolved. Her initial high sensitivity troponin I was elevated at 24 pg/mL and subsequent value is 38.5 pg/mL. Her EKGs so far have shown a normal sinus rhythm, can not rule out age-indeterminate anterior infarct. EKG dated 02/28/23 at 1633 showed a nonspecific T wave abnormality in the anterior leads which was new. She has NOT demonstrated any dynamic ST segment changes or ST elevations. Patient offers no other complaints. She denies any shortness of breath, orthopnea, or PND. She denies any palpitations, syncope, or near syncope. She has not had any limiting cardiopulmonary symptoms leading up to this hospitalization and her exertional tolerance has been stable in the past weeks. Her chest x-ray showed no acute processes. CT angiogram of the chest showed no evidence of infiltrates, heart failure, pulmonary edema, or pulmonary emboli. Her blood pressure remains elevated although it is improved. Patient's cardiac risk factors include hypertension, dyslipidemia, atherosclerosis of the aorta, prediabetes, prior radiation treatments for breast cancer, and a family history of premature coronary artery disease. Patient is currently asymptomatic but has been having intermittent symptoms since yesterday in the fourdrinier machine tender hours. We discussed the possible causes for her symptoms including unstable angina pectoris, coronary artery disease, versus the possibility of demand ischemia related to LVH and uncontrolled hypertension. Coronary Angiography/LHC is planned due to her elevated troponin I levels and her concerning symptoms. Recommend the followin. Begin Lopressor 25 mg b.i.d.. 2. Continue Amlodipine 5 mg daily. 3. Continue Aspirin 81 mg daily. 4. Increase Atorvastatin to 80 mg daily. 5. Continue Lovenox for the time being. 6. Continue Losartan 100 mg daily. 7. Continue Nitro-paste 2% 1 inch applied topically every 6 hours. 8. Recommend Left Heart Catheterization/Coronary Angiography today. I discussed with Dr. Groves. 9. NPO except medications, sips & ice chips until after cardiac catheterization. We will make further recommendations pending the outcome of her cardiac catheterization/coronary angiography. We discussed the risks, benefits, potential outcomes of cardiac catheterization, and we also discussed what interventions are available at [facility]. She is aware that we do not have on-site Cardiothoracic Surgical back-up. Patient agrees to proceed. All the patient's questions and her 's were answered to their satisfaction. (5) Hyperlipidemia: -- Fasting lipid panel shows a total cholesterol 197 mg/dL, LDL is 132 mg/dL, and HDL 41 mg/dL. Total cholesterol:HDL ratio is 4.8. -- With history of prediabetes and evidence of vascular disease -- recommend getting her LDL down to 55 mg/dL. -- Increase Atorvastatin to 80 mg daily. -- Mediterranean, low sodium diet is recommended. -- Repeat FLP, ALT, AST, CK in 2 to 3 months. -- If LDL on follow-up is not at goal level, begin a PCSK-9 inhibitor such as Repatha 140 mg SQ injection every 2 weeks. (6) Calcification of abdominal aorta: -- Manage vascular disease with medications as outlined above. -- Aggressively manage hypertension. -- If hypertension is resistant to treatment, strongly consider renal artery ultrasound. Thank you for asking us to see this patient consultation. We will continue to follow her along while hospitalized and following discharge. If we can be of any further assistance to you, please contact myself or Dr. Groves via [place] or cell phone. History of Present Illness Reason for Consultation: -- Unstable Angina Pectoris. Requesting Physician: Jordan Espinosa DO Attending Physician: Brayan Groves MD, PhD History of Present Illness Mrs. Espinal is a 67-year-old female with a history of Moderate Concentric LVH, Uncontrolled Hypertension, Dyslipidemia, Calcifications of the Aorta, Prediabetes, [id number] MR, Trace TR, Family History of Premature CAD, and Breast Cancer s/p Right Breast Lumpectomy, [place] Node Biopsy, and Radiation Treatments 2016 who was admitted to [facility] on 02/28/23 with Chest Pain and an Elevated High Sensitivity Troponin I. Patient has been in her usual state of health leading up to this admission. However he was awakened at 0230 in the fourdrinier machine tender of 02/28/23 with left substernal chest pain which radiated to her left neck, left arm, with some associated left arm paresthesias and nausea. She did not have any associated symptoms otherwise, no associated vomiting, diaphoresis, or dyspnea. Patient states that her symptoms lasted for up to an hour. She got up and checked her blood pressure and her systolic BP was 190s. Patient subsequently went back to bed, and contacted her PCP. She was seen in her PCP's office where an EKG was done showing no acute changes. They subsequently referred her to the ER for further evaluation and treatment. Patient has continued to experience intermittent chest pressure and pain although it has not been as severe. For example when she was up getting washed up today she develops symptoms, and then lied back down in her hospital bed. Eventually the symptoms resolved. Her initial high sensitivity troponin I was elevated at 24 pg/mL and subsequent value is 38.5 pg/mL. Her EKGs so far have shown a normal sinus rhythm, can not rule out age-indeterminate anterior infarct. EKG dated 02/28/23 at 1633 showed a nonspecific T wave abnormality in the anterior leads which was new. She has NOT demonstrated any dynamic ST segment changes or ST elevations. Patient offers no other complaints. She denies any shortness of breath, orthopnea, or PND. She denies any palpitations, syncope, or near syncope. She has not had any limiting cardiopulmonary symptoms leading up to this hospitalization and her exertional tolerance has been stable in the past weeks. Her blood pressure remains elevated. Admittedly, she has been working with her PCP and making medication adjust to her antihypertensive regimen. Patient's cardiac risk factors include hypertension, dyslipidemia, atherosclerosis of the aorta, prediabetes, prior radiation treatments for breast cancer, and a family history of premature coronary artery disease. Patient has tolerated conscious sedation in the past. She has had adverse side effects with general anesthesia. Social History: -- Patient is and accompanied by her today. -- She is retired. -- Lifelong non-smoker. Family History: -- Father had hypertension and in his 30's from an SC. -- Mother with hypertension. -- Younger sibling with heart disease/CAD. Allergies Allergy/AdvReac Type Severity Reaction Status Date / Time morphine Allergy Mild HIVES Verified 02/28/23 16:15 Home Medications Medication Instructions Recorded Confirmed Type melatonin 10 mg capsule 10 mg PO HS PRN Sleep 11/05/20 02/28/23 History hyoscyamine sulfate 0.125 mg 0.125 mg PO TID PRN dyspepsia #90 05/15/22 02/28/23 Rx sublingual tablet tabs dicyclomine 10 mg capsule 10 mg PO DAILY PRN Cramps 08/01/22 02/28/23 History tramadol 50 mg tablet 25 mg PO DAILY PRN breakthrough 09/13/22 02/28/23 Rx joint pain #10 tabs amlodipine 5 mg tablet 5 mg PO DAILY #90 tabs 11/15/22 02/28/23 Rx omeprazole 40 mg capsule,delayed 40 mg PO DAILY PRN Gi Upset 01/02/23 02/28/23 History release olmesartan 40 mg tablet 40 mg PO DAILY #90 tabs 01/17/23 02/28/23 Rx Patient History Medical History B12 deficiency Breast cancer (~2016) Calcification of abdominal aorta on CT 03/2020 Gastroparesis GERD (gastroesophageal reflux disease) History of anesthesia reaction 2015 s/p Laparotomy experienced CHF symptoms. no problems currently. 2015 s/p vocal cord surgery/repair patient experienced pulmonary flash edema History of cancer of right breast Hyperlipidemia Hypertension Left ventricular hypertrophy Osteoarthritis Osteopenia Prediabetes SNHL (sensorineural hearing loss) Vocal cord nodule Surgical History H/O breast biopsy right H/O exploratory laparotomy Description: To repair bowel injury at time of laparoscopy for gallbladder. H/O laparoscopy exploratory Description: Diagnostic laparoscopy, running of the small bowel, laparoscopic cholecystectomy with cholangiogram 09/03/14 Dr. Rincon Repair Small bowel enterotomy 09/04/14 Dr. Rincon H/O partial mastectomy Right with lymph node removal H/O repair of left rotator cuff H/O shoulder surgery Right shoulder April 2010-rotator cuff repair History of colonoscopy History of ERCP History of esophagogastroduodenoscopy (EGD) History of foot surgery right foot-tendon repair History of incisional hernia repair Description: Repair of incisional hernia with 15cm surgimesh 11/30/15 Dr. 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 Status post tubal ligation Family History Mother Hypertension Hearing loss Sister Allergies Other No family history of adverse response to anesthesia No family history of bleeding disorder Denies family history of Ovarian cancer Breast cancer Colorectal cancer Social History Smoking Status: Never smoker Second Hand Exposure: No; Do You Dip or Chew Tobacco: No; Hx Alcohol Use: No Hx Substance Use: No Preferred Language: Danish Communication Ability: Effective Livestock Trader Required: No Beliefs That Will Affect Care: None marital status: Current Living Situation: Spouse current occupational status: retired Feels Safe at Home: Yes Childhood Exposure to Second-Hand Smoke: No Dental Care, Regularly: No Physical Activity Frequency: Does not Exercise Seatbelt Use: always Sunscreen Use: Yes Assistive Devices: None Review of Systems Review of Systems: 10 point ROS completed and is negative with the exception of what is mentioned in the HPI. Physical Exam Physical Exam: Blood pressure is 169/75. Pulse 70 and regular. Respiratory rate 18 and unlabored. SpO2 is 98% on room air. GENERAL: Patient in no acute distress. HEENT: Head is atraumatic, normocephalic. EOM's intact. Facies symmetric. No perioral cyanosis. NECK: No JVD. JVP is not elevated. Carotid upstrokes are + 2 bilaterally without bruits. CHEST/LUNGS: Clear to auscultation throughout all lung rees. No wheezes, rales, or crackles. CVS: S1 and S2 are regular without murmurs, gallops, or rubs. PMI is nondisplaced. No lifts, heaves, or thrills. No abdominal aortic or renal bruits. ABDOMINAL EXAM: Bowel sounds are present. No masses, organomegaly, or tende rness. EXTREMITIES: No clubbing or cyanosis. No edema. Intact posterior tibial and radial pulses bilaterally. Jose's test is positive for both right radial and ulnar arterial reflow. NEUROLOGIC EXAM: Patient is awake, alert, and oriented. Pleasant and cooperative. Answers questions appropriately. Speech is clear. TIE BUYER: -- NSR throughout, occasional ectopy. Results & Data Vital Signs (Past 12 Hours) Vital Signs Temp Pulse Pulse Resp BP Pulse Ox O2 Del Method 03/01/23 07:52 36.6 C 72 18 169/75 H 98 Room Air 03/01/23 03:52 36.5 C 72 18 134/71 98 Room Air 03/01/23 00:43 66 02/28/23 23:13 36.6 C 75 18 155/68 H 97 Room Air 02/28/23 22:06 152/78 H Laboratory Results Laboratory Results - last 24 hr 02/28/23 02/28/23 02/28/23 11:50 11:50 11:50 WBC Cancelled RBC Cancelled Hgb Cancelled Hct Cancelled MCV Cancelled MCH Cancelled MCHC Cancelled RDW Std Deviation Cancelled RDW Coeff of Rosa Maria Cancelled Plt Count Cancelled MPV Cancelled Immature Gran % (Auto) Cancelled Neut % (Auto) Cancelled Lymph % (Auto) Cancelled Mcmullen % (Auto) Cancelled Eos % (Auto) Cancelled Baso % (Auto) Cancelled Neut # (Auto) Cancelled Lymph # (Auto) Cancelled Mcmullen # (Auto) Cancelled Eos # (Auto) Cancelled Baso # (Auto) Cancelled Immature Gran # (Auto) Cancelled Absolute Nucleated RBC Cancelled Nucleated RBC % (auto) Cancelled Neutrophils % (Manual) Cancelled Band Neutrophils % Cancelled Lymphocytes % (Manual) Cancelled Prolymphocyte % Cancelled Reactive Lymphs % (Man) Cancelled Monocytes % (Manual) Cancelled Eosinophils % (Manual) Cancelled Basophils % (Manual) Cancelled Metamyelocytes % (Man) Cancelled Myelocytes % (Man) Cancelled Promyelocytes % (Man) Cancelled Blast Cells % (Manual) Cancelled Plasma Cell % (Manual) Cancelled Other Cells % Cancelled Nucleated RBC % Cancelled Neutrophils # (Manual) Cancelled Band Neutrophils # Cancelled Total Absolute Neuts Cancelled Lymphocytes # (Manual) Cancelled Prolymphocyte # Cancelled Reactive Lymphs # Cancelled Total Abs Lymphocytes Cancelled Monocytes # (Manual) Cancelled Eosinophils # (Manual) Cancelled Basophils # (Manual) Cancelled Metamyelocytes # (Man) Cancelled Myelocytes # (Manual) Cancelled Promyelocytes # (Man) Cancelled Blast Cells # (Man) Cancelled Plasma Cell # (Manual) Cancelled Other Cells # Cancelled Nucleated RBCs # (Man) Cancelled Hypersegmented Neuts Cancelled Hyposegmented Neuts Cancelled Hypogranular Neuts Cancelled Large Granular Lymphs Cancelled # Lrg Granular Lymphs Cancelled Hairy Cells Cancelled Smudge Cells Cancelled Toxic Granulation Cancelled Toxic Vacuolation Cancelled Dohle Bodies Cancelled Jamal Rods Cancelled Platelet Estimate Cancelled Hypogranular Platelets Cancelled Giant Platelets Cancelled Platelet Satelliting Cancelled RBC Morphology Cancelled Polychromasia Cancelled Hypochromasia Cancelled Poikilocytosis Cancelled Basophilic Stippling Cancelled Anisocytosis Cancelled Microcytosis Cancelled Macrocytosis Cancelled Spherocytes Cancelled Pappenheimer Bodies Cancelled Sickle Cells Cancelled Target Cells Cancelled Tear Drop Cells Cancelled Ovalocytes Cancelled Stomatocytes Cancelled Monroy-Tyler Bodies Cancelled Echinocytes Cancelled Acanthocytes (Spur) Cancelled Rouleaux Cancelled RBC Agglutinates Cancelled Schistocytes Cancelled Sezary Cell Cancelled PT 10.3 INR 0.9 APTT 21.8 PTT Ratio 0.8 D-Dimer Sodium 141 Potassium 4.7 Chloride 108 H Carbon Dioxide 26 Anion Gap 7 BUN 20 Creatinine 0.84 Est Cr Clr Drug Dosing 76.4 Est GFR ( Amer) 82.8 Est GFR (Non-Af Amer) 71.4 BUN/Creatinine Ratio 23.8 H Glucose 147 H Calcium 10.1 Magnesium Total Bilirubin 0.3 AST 16 ALT 11 Alkaline Phosphatase 74 Troponin I High Sens 24.2 H Total Protein 7.2 Albumin 4.3 Globulin 2.9 Albumin/Globulin Ratio 1.5 Triglycerides Cholesterol LDL Cholesterol, Calc VLDL Cholesterol, Calc HDL Cholesterol Cholesterol/HDL Ratio Blood Parasites ID Cancelled 02/28/23 02/28/23 02/28/23 14:54 15:30 18:29 WBC 7.87 RBC 4.33 Hgb 11.9 L Hct 36.4 L MCV 84.1 MCH 27.5 MCHC 32.7 RDW Std Deviation 41.4 RDW Coeff of Rosa Maria 13.5 Plt Count 253 MPV 9.5 Immature Gran % (Auto) 0.3 Neut % (Auto) 69.9 Lymph % (Auto) 20.8 Mcmullen % (Auto) 7.4 Eos % (Auto) 1.1 Baso % (Auto) 0.5 Neut # (Auto) 5.50 Lymph # (Auto) 1.64 Mcmullen # (Auto) 0.58 Eos # (Auto) 0.09 Baso # (Auto) 0.04 Immature Gran # (Auto) 0.02 Absolute Nucleated RBC Nucleated RBC % (auto) Neutrophils % (Manual) Band Neutrophils % Lymphocytes % (Manual) Prolymphocyte % Reactive Lymphs % (Man) Monocytes % (Manual) Eosinophils % (Manual) Basophils % (Manual) Metamyelocytes % (Man) Myelocytes % (Man) Promyelocytes % (Man) Blast Cells % (Manual) Plasma Cell % (Manual) Other Cells % Nucleated RBC % Neutrophils # (Manual) Band Neutrophils # Total Absolute Neuts Lymphocytes # (Manual) Prolymphocyte # Reactive Lymphs # Total Abs Lymphocytes Monocytes # (Manual) Eosinophils # (Manual) Basophils # (Manual) Metamyelocytes # (Man) Myelocytes # (Manual) Promyelocytes # (Man) Blast Cells # (Man) Plasma Cell # (Manual) Other Cells # Nucleated RBCs # (Man) Hypersegmented Neuts Hyposegmented Neuts Hypogranular Neuts Large Granular Lymphs # Lrg Granular Lymphs Hairy Cells Smudge Cells Toxic Granulation Toxic Vacuolation Dohle Bodies Jamal Rods Platelet Estimate Hypogranular Platelets Giant Platelets Platelet Satelliting RBC Morphology Polychromasia Hypochromasia Poikilocytosis Basophilic Stippling Anisocytosis Microcytosis Macrocytosis Spherocytes Pappenheimer Bodies Sickle Cells Target Cells Tear Drop Cells Ovalocytes Stomatocytes Monroy-Tyler Bodies Echinocytes Acanthocytes (Spur) Rouleaux RBC Agglutinates Schistocytes Sezary Cell PT INR APTT PTT Ratio D-Dimer 560 H* Sodium Potassium Chloride Carbon Dioxide Anion Gap BUN Creatinine Est Cr Clr Drug Dosing Est GFR ( Amer) Est GFR (Non-Af Amer) BUN/Creatinine Ratio Glucose Calcium Magnesium Total Bilirubin AST ALT Alkaline Phosphatase Troponin I High Sens 40.1 H D Total Protein Albumin Globulin Albumin/Globulin Ratio Triglycerides Cholesterol LDL Cholesterol, Calc VLDL Cholesterol, Calc HDL Cholesterol Cholesterol/HDL Ratio Blood Parasites ID 02/28/23 03/01/23 03/01/23 21:51 05:54 05:54 WBC 6.77 RBC 4.28 Hgb 11.7 L Hct 35.9 L MCV 83.9 MCH 27.3 MCHC 32.6 RDW Std Deviation 42.0 RDW Coeff of Rosa Maria 13.8 Plt Count 228 MPV 9.4 Immature Gran % (Auto) 0.1 Neut % (Auto) 66.2 Lymph % (Auto) 22.0 Mcmullen % (Auto) 8.6 Eos % (Auto) 2.7 Baso % (Auto) 0.4 Neut # (Auto) 4.48 Lymph # (Auto) 1.49 Mcmullen # (Auto) 0.58 Eos # (Auto) 0.18 Baso # (Auto) 0.03 Immature Gran # (Auto) 0.01 Absolute Nucleated RBC Nucleated RBC % (auto) Neutrophils % (Manual) Band Neutrophils % Lymphocytes % (Manual) Prolymphocyte % Reactive Lymphs % (Man) Monocytes % (Manual) Eosinophils % (Manual) Basophils % (Manual) Metamyelocytes % (Man) Myelocytes % (Man) Promyelocytes % (Man) Blast Cells % (Manual) Plasma Cell % (Manual) Other Cells % Nucleated RBC % Neutrophils # (Manual) Band Neutrophils # Total Absolute Neuts Lymphocytes # (Manual) Prolymphocyte # Reactive Lymphs # Total Abs Lymphocytes Monocytes # (Manual) Eosinophils # (Manual) Basophils # (Manual) Metamyelocytes # (Man) Myelocytes # (Manual) Promyelocytes # (Man) Blast Cells # (Man) Plasma Cell # (Manual) Other Cells # Nucleated RBCs # (Man) Hypersegmented Neuts Hyposegmented Neuts Hypogranular Neuts Large Granular Lymphs # Lrg Granular Lymphs Hairy Cells Smudge Cells Toxic Granulation Toxic Vacuolation Dohle Bodies Jamal Rods Platelet Estimate Hypogranular Platelets Giant Platelets Platelet Satelliting RBC Morphology Polychromasia Hypochromasia Poikilocytosis Basophilic Stippling Anisocytosis Microcytosis Macrocytosis Spherocytes Pappenheimer Bodies Sickle Cells Target Cells Tear Drop Cells Ovalocytes Stomatocytes Monroy-Tyler Bodies Echinocytes Acanthocytes (Spur) Rouleaux RBC Agglutinates Schistocytes Sezary Cell PT INR APTT PTT Ratio D-Dimer Sodium 141 Potassium 4.1 Chloride 108 H Carbon Dioxide 27 Anion Gap 6 BUN 20 Creatinine 0.85 Est Cr Clr Drug Dosing 75.4 Est GFR ( Amer) 81.6 Est GFR (Non-Af Amer) 70.4 BUN/Creatinine Ratio 23.5 H Glucose 111 H Calcium 9.5 Magnesium 2.0 Total Bilirubin AST ALT Alkaline Phosphatase Troponin I High Sens 38.5 H Total Protein Albumin Globulin Albumin/Globulin Ratio Triglycerides 119 Cholesterol 197 LDL Cholesterol, Calc 132 VLDL Cholesterol, Calc 24 HDL Cholesterol 41 Cholesterol/HDL Ratio 4.8 Blood Parasites ID Diagnostic Findings CXR 02/28/23: No lines and tubes are seen. Calcified aortic knob is seen. The lungs are clear. No evidence of pleural effusion or pneumothorax. IMPRESSION: No acute chest disease. CTA CHEST/LUNGS 02/28/23: Pulmonary arteries: Unremarkable. No acute pulmonary embolism. Aorta: Atherosclerotic changes of the aorta, with coronary involvement. No thoracic aortic aneurysm. Lungs: Unremarkable. No mass. No consolidation. Pleural space: Unremarkable. No focal infiltrate, pleural effusion, or pneumothorax. Heart: Cardiomegaly. Bones/joints: Degenerative changes of the spine. No acute fracture. No dislocation. Soft tissues: Unremarkable. Lymph nodes: Unremarkable. No enlarged lymph nodes. Gallbladder and bile ducts: Cholecystectomy. IMPRESSION: 1. No acute pulmonary embolism. 2. No focal infiltrate, pleural effusion, or pneumothorax. Medications Administered Medications melatonin 10 mg capsule 10 mg PO HS PRN Sleep 11/05/20 [History Confirmed 02/28/23] hyoscyamine sulfate 0.125 mg sublingual tablet 0.125 mg PO TID PRN dyspepsia #90 tabs 05/15/22 [Rx Confirmed 02/28/23] dicyclomine 10 mg capsule 10 mg PO DAILY PRN Cramps 08/01/22 [History Confirmed 02/28/23] tramadol 50 mg tablet 25 mg PO DAILY PRN breakthrough joint pain #10 tabs 09/13/22 [Rx Confirmed 02/28/23] amlodipine 5 mg tablet 5 mg PO DAILY #90 tabs 11/15/22 [Rx Confirmed 02/28/23] omeprazole 40 mg capsule,delayed release 40 mg PO DAILY PRN Gi Upset 01/02/23 [History Confirmed 02/28/23] olmesartan 40 mg tablet 40 mg PO DAILY #90 tabs 01/17/23 [Rx Confirmed 02/28/23] Home Medications Acetaminophen (Acetaminophen 325 Mg Tab) 650 mg PO Q4H PRN PRN Reason: Pain or Fever Stop: 03/30/23 17:43 Last Admin: 02/28/23 19:49 Dose: 650 mg Al Hydrox/Mg Hydrox/Simethicone (Aluminum/Magnesium Susp 30 Ml Udc) 15 ml PO Q4H PRN PRN Reason: Dyspepsia Stop: 03/30/23 17:43 Amlodipine Besylate (Amlodipine Besylate 5 Mg Tab) 5 mg PO DAILY ASHUTOSH Stop: 03/31/23 08:59 Last Admin: 03/01/23 08:57 Dose: 5 mg Aspirin (Aspirin 81 Mg Ectab) 81 mg PO QAM ASHUTOSH Stop: 03/31/23 08:59 Last Admin: 03/01/23 08:57 Dose: 81 mg Atorvastatin Calcium (Atorvastatin 40 Mg Tab) 40 mg PO HS ASHUTOSH Stop: 03/30/23 20:59 Last Admin: 02/28/23 19:53 Dose: 40 mg Enoxaparin Sodium (Enoxaparin Inj 40 Mg/0.4 Ml Syr) 40 mg SQ QAM ASHUTOSH Stop: 03/31/23 08:59 Hyoscyamine (Hyoscyamine Sulfate 0.125 Mg Tab) 0.125 mg PO TID PRN PRN Reason: dyspepsia Stop: 03/30/23 18:02 Losartan Potassium (Losartan Potassium 50 Mg Tab) 100 mg PO DAILY ASHUTOSH Stop: 03/31/23 08:59 Last Admin: 03/01/23 08:57 Dose: 100 mg Magnesium Hydroxide (Magnesium Hydroxide Susp 30 Ml Udc) 30 ml PO Q12H PRN PRN Reason: Constipation Stop: 03/30/23 17:43 Melatonin (Melatonin 3 Mg Tab) 9 mg PO HS PRN PRN Reason: Sleep Stop: 03/30/23 18:01 Last Admin: 02/28/23 22:02 Dose: 9 mg Morphine Sulfate (Morphine Sulfate 2 Mg/Ml Carp) 2 mg IV Q30M PRN PRN Reason: Chest Pain Stop: 03/14/23 17:43 Nitroglycerin (Nitroglycerin 2% Ointment 30gm Tube) 1 inch EXT Q6 ASHUTOSH Stop: 03/30/23 17:59 Last Admin: 03/01/23 05:15 Dose: 1 inch Ondansetron HCl (Ondansetron Inj 2 Mg/Ml 2 Ml Vial) 4 mg IV Q6H PRN PRN Reason: Nausea Stop: 03/30/23 17:43 Polyethylene Glycol (Polyethylene (Miralax) 17 Gm Pack) 17 gm PO DAILY PRN PRN Reason: Constipation Stop: 03/30/23 17:43 PG Care Time/CCT Total # of Minutes Spent Total Time Spent with Patient: Total time spent is greater than 50% in coordination of care (as documented) at patient's floor/unit and/or counseling patient:62 [place] [address] INT INP/OBS CARE 3/75MIN Patient Type New History Comprehensive Exam Comprehensive Medical Decision Making High Complexity Diagnoses Chest pain R07.9 Elevated troponin I level R77.8 Left ventricular hypertrophy I51.7 Hypertension I10 Hyperlipidemia E78.5 Calcification of abdominal aorta I70.0 Time Spent (min) 82
--- NOTE | 2023-03-01 11:25 | XCELERA ---
[id number] \\[email or web address]\[email or web address]_[email or web address]\[id number]
[2023-03-01] MEDS: METOPROLOL TARTRATE 25 MG TAB PO SCH ×2 (11:40→20:20)
[2023-03-01] MEDS: ENOXAPARIN INJ 40 MG/0.4 ML SYR SQ SCH (12:08)
[2023-03-01] MEDS ORDERED: niCARdipine HCL INJ 2.5 MG/ML 10 ML AMP ONE (12:34)
[2023-03-01] MEDS ORDERED: MIDAZOLAM HCL 1 MG/ML 2ML VIAL ONE ×2 (12:34→13:14)
[2023-03-01] MEDS ORDERED: fentaNYL citrate PF 100 MCG/2 ML VIAL ONE ×3 (12:34→14:05)
[2023-03-01] MEDS ORDERED: HEPARIN (PORCINE) 1000 UNIT/ML 10 ML (CATH LAB USE ONLY) ONE (12:34)
[2023-03-01] MEDS ORDERED: NITROGLYCERIN/D5W 100MCG/ML 20ML SYR ONE (12:35)
[2023-03-01] MEDS ORDERED: hydrALAZINE HCL 20 MG/ML VIAL ONE ×2 (12:47→13:29)
[2023-03-01] MEDS ORDERED: TICAGRELOR 90 MG TAB ONE (13:19)
[2023-03-01] MEDS ORDERED: fentaNYL citrate PF 100 MCG/2 ML VIAL IV ONE (14:05)
--- NOTE | 2023-03-01 14:20 | Post Anesthesia Assessment ---
Date of Service March 01, 2023 Post Sedation Assessment Vital Signs Temp Pulse Pulse Resp BP BP Pulse Ox 03/01/23 13:45 85 16 149/67 H 96 03/01/23 06:00 76 18 161/91 H 97 03/01/23 11:46 36.6 C 83 16 165/80 H 97 03/01/23 08:55 74 132/78 03/01/23 07:52 36.6 C 72 18 169/75 H 98 03/01/23 03:52 36.5 C 72 18 134/71 98 03/01/23 00:43 66 02/28/23 23:13 36.6 C 75 18 155/68 H 97 02/28/23 22:06 152/78 H 02/28/23 21:45 85 198/74 H 98 02/28/23 19:11 36.6 C 73 18 150/76 H 97 02/28/23 18:18 163/77 H 02/28/23 16:30 75 21 98 02/28/23 16:30 176/82 H 02/28/23 16:00 64 18 98 02/28/23 16:00 176/87 H 02/28/23 15:30 65 19 99 02/28/23 15:30 187/84 H 02/28/23 15:13 200/92 H 02/28/23 15:13 72 23 98 02/28/23 15:00 68 19 97 02/28/23 14:44 62 18 97 02/28/23 14:48 68 02/28/23 14:41 64 16 193/84 H 99 02/28/23 14:41 O2 Del Method 03/01/23 13:45 Room Air 03/01/23 06:00 Room Air 03/01/23 11:46 Room Air 03/01/23 08:55 03/01/23 07:52 Room Air 03/01/23 03:52 Room Air 03/01/23 00:43 02/28/23 23:13 Room Air 02/28/23 22:06 02/28/23 21:45 Room Air 02/28/23 19:11 Room Air 02/28/23 18:18 02/28/23 16:30 02/28/23 16:30 02/28/23 16:00 02/28/23 16:00 02/28/23 15:30 02/28/23 15:30 02/28/23 15:13 02/28/23 15:13 02/28/23 15:00 02/28/23 14:44 02/28/23 14:48 02/28/23 14:41 Room Air 02/28/23 14:41 Room Air Recovery Score Activity: Moves 4 extremities Respiration: Deep Breath/Cough Circulation: +/-20% PreAnes Value Consciousness: Fully Awake Oxygen Saturation: > 92% On Room Air Post Anesthesia Score: 10 Discharge Sedation Level of Care: Fast Track Phase II Post Sedation Plan On clinical assessment, the patient appears to have tolerated the sedation without complications. Patient is recovering as anticipated. Patient will continue to be monitored by nursing and may be discharged when sedation discharge criteria are met per below protocol. Upon Completions of procedure up to 15 minutes continue every 5 minute vital signs and the P.A.R. score; then discharge to a Phase I or Fast Track to Phase II per the following guidelines: * Discharge Patient to appropriate Phase II area if PAR is 8 or greater or return to pre- procedure baseline. The post - procedure orders will be as directed. * If PAR score is less than 8 or not return to pre-procedure baseline then patient will follow Phase I monitoring till PAR is reached for Phase II. The Phase I may be done in procedure room or may call to secure a Phase I area. * If naloxone or flumazenil are used for reversal, hold in Phase I for continued monitoring from when last reversal dose was given for a minimum of 60 minutes or longer pending the nurse and/or physician discretion of patient condition before discharge to Phase II. Please call the Sedation Physician to re-evaluate and complete post-note for discharge to Phase II area. Do NOT discharge from procedure sedation or Phase 1 until post- sedation evaluation note is complete by procedure /sedation MD Sedation Discharge Instructions to be given to the patient at discharge to home. [facility] [place] Procedure Codes (Charges) Indication for Procedure Indication for procedure: unstable angiina Sedation/Anesthesia Procedure 1: Sedation/Anesthesia: 11436 Mod Sedation by the same physician;Init15 Min Child Age 5 & Up (Initial 15 min start 1254) Total Sedation Time (minutes): 42 Procedure 2: Sedation/Anesthesia: 79081 Mod Sedation by the same physician; Ea [id number] Minutes (Additional 27 min, and 1336) Total Sedation Time (minutes): 42
--- NOTE | 2023-03-01 14:33 | Cardiac Catheterization ---
ACC Data: Riveter Portable Machine Cardiac Status Clinical evaluation leading to the procedure CAD Presenation: Unstable angina STEMI OR Non-STEMI Symptom Onset Date: 02/28/23 Coronary Anatomy Dominant: Right Left Main (% Stenosis): Normal LAD (% Stenosis): Mid (50 to 70%) D1 (% Stenosis): Normal D2 (% Stenosis): Normal Circumflex (% Stenosis): Normal OM1 (% Stenosis): Normal OM2 (% Stenosis): Normal L PL1 (% Stenosis): Normal L PL2 (% Stenosis): Normal RCA (% Stenosis): Proximal (95 to 99% with small thrombus) R PDA (% Stenosis): Normal R PL1 (% Stenosis): Normal Diagnostic Physicians Name: Brayan Groves MD, PhD Closure Device Percutaneous Entry Location: Radial Closure Device: Radial Band Recommendations: Medical Therapy and/or Counseling and PCI without planned CABG PCI Indication: Unstable Angina Lesion Segment Name: Proximal RCA Culprit Artery: Yes Stenosis Prior to Rx (%): 95 to 99% Chronic Total Occlusion: No Pre-Procedure MARITZA Flow: 2 Previously Treated Lesion: No Lesion Complexity: Non-High/Non-C Lesion Length (mm): 10 Thrombus Present: Yes (Small) Bifurcation Lesion: No Guidewire Across Lesion: Yes Lesion #2 Segment Name: Mid LAD Culprit Artery: No Stenosis Prior to Rx (%): 50 to 70% Chronic Total Occlusion: No FFR: Yes (IFR= 0.85, 0.86, 0.85) Ratio: greater than 0.75% Pre-Procedure MARITZA Flow: 3 Previously Treated Lesion: No Lesion Complexity: Non-High/Non-C Lesion Length (mm): 18 Thrombus Present: No Bifurcation Lesion: Yes Guidewire Across Lesion: Yes Intraprocedure Events Significant Disection: No Perforation: No Cardiac Cath Procedure Full Procedure Date March 01, 2023 Pre-Procedure Diagnosis Pre-Procedure Diagnosis: Acute Coronary Syndrome AUC Score AUC Score: 07 Post-Procedure Diagnosis Post-Procedure Diagnosis: Severe CAD Procedure(s) Performed Procedure(s) Performed: Coronary Angiography, Drug Eluting Stent and Fractional Flow [employer] Attendant Brayan Groves MD, PhD Estimated Blood Loss Estimated Blood Loss: 5 mL Medication(s) Medication(s): Fentanyl, Heparin, Lidocaine 1%, Nicardipine, Nitroglycerin and Versed Summary of Findings Brief description: Patient was brought to the cardiac catheterization suite where she was shaved and prepped in a sterile fashion. Sedated using IV Versed and fentanyl. Soft tissues of the right wrist were anesthetized using 2 mL of 1% Xylocaine. The right radial artery was accessed with a modified Seldinger technique and a 6 [place]ian radial artery glide sheath was placed. Patient was provided anticoagulation with IV heparin and antispasmodics including nicardipine and nitroglycerin. Initial catheter advancement required a Mitul wire. After that, a 0.035 J-tip wire was used for catheter exchanges. Left coronary angiography was performed in orthogonal views with a 5 [place]ian Mccool 4 diagnostic catheter. Right coronary angiography was performed using a 5 [place] Mccool 4 diagnostic catheter. Diagnostic catheters were removed. We immediately moved to PCI. ACT was checked and additional IV heparin was provided as needed to maintain therapeutic anticoagulation. A 6 [place]ian JR4 guide catheter was used to engage the right coronary. Through this, a BMW reversal guidewire was advanced across the lesion and positioned distally. The proximal RCA lesion was predilated using a 2.5 x 12 mm trek balloon. The patient reported chest pain with balloon inflation. A 2.5 x 15 mm drug-eluting stent was positioned across the lesion. This was deployed at 16 rani (2.75 mm). Stent balloon was removed. After fire engine pump operator angiography the stent was postdilated using a 3.0 x 9 mm noncompliant balloon. Balloon and guidewire were removed. Angiography was performed in orthogonal views. Patient reported no chest pain. Decision was made to evaluate the LAD by IFR analysis. A 6 [place]itanian EBU 3.0 guide catheter was used to engage the left main coronary. The Omni Doppler wave wire was advanced through the guide catheter and positioned with the transducer just distal to the catheter tip. The catheter was flushed with normal saline and after stabilization of the pressure waveform the pressures were "normalized". The guidewire was advanced into the LAD and positioned with the transducer distal to the lesions. iFR was sampled 3 times. Patient had been complaining of worsening abdominal pain. Patient told me this was a longstanding issue and that she had severe pain when she had episodes. Decision was made to hold off on further intervention at this time. Therefore, the Doppler wire and guide catheter were removed. Radial artery sheath was removed. Hemostasis was obtained using the vascular band. Patient reported no chest pain, only abdominal pain and she was returned to the recovery area. This ended the case. Coronary angiography findings: [id number] with mild calcification. Mild luminal irregularities. Bifurcates into LAD and circumflex. LAD-this is large caliber and transapical first major branch is a septal trunk. There is also a small to medium caliber diagonal branch. Proximal segment of the LAD has mild luminal irregularities. It is mildly calcified. The mid segment has diffuse mild disease until just prior to the second diagonal. There, there is a long complex eccentric stenosis of 50 to 70%. After that lesion the LAD gives a large third diagonal branch. There is diffuse mild disease after the third diagonal and then the vessel has mild scattered plaques as it approaches and includes the apex. There is MARITZA-3 flow. [id number]-[id number] and nondominant. Travels in the AV groove where the first OM is small to medium and then continues further where there is a very small second OM after which there is a large atrial branch. Then the first large caliber vessel is a multi branching OM 3. This is followed by a medium caliber posterolateral branch and a large multi branching posterolateral #2. There is no more than mild scattered plaques in the circumflex and its branches. RCA-large caliber and dominant vessel. It bifurcates distally into the PDA and a multi branching posterior lateral. Proximal segment has a focal 95 to 99% stenosis with a small amount of thrombus. MARITZA II flow. The distal vessel and branches have no angiographically significant disease. PCI of RCA: 0% residual stenosis post PCI No evidence of dissection or perforation post PCI MARITZA-3 flow reestablished post PCI IFR of LAD: 0.85, 0.86, 0.85. Therefore, this is considered hemodynamically significant. Summary: 1. Severe two-vessel coronary disease. RCA is culprit. LAD is angiographically borderline but probably hemodynamically significant by IFR analysis. 2. Patient will be on dual antiplatelet therapy with aspirin 81 mg daily and Brilinta 90 mg p.o. twice daily. 3. Initiate guideline directed medical therapy for secondary prevention of coronary disease to include; high intensity statin, beta-lindsey, plus or minus ALVARADO inhibitor/ARB as tolerated. 4. Regarding her LAD lesion; we will allow her to recover for 2 weeks. If she develops typical CCS class III symptoms despite 2 anginal medications then she would have an indication for us to pursue PCI of the LAD at that time. 5. Strongly encourage CARDIAC REHAB participation. 6. Patient will remain hospitalized overnight for monitoring. We will also attempt to alleviate her abdominal distress. Hemodynamics Rest Ao:: 131/66 mmHg Final Ao: 163/71 mmHg LV: Not performed Recommendations Recommendations: Medical Therapy and/or Counseling and PCI without planned CABG Radiation Exposure (mGy) 1805 mGy, fluoroscopy time 10.7 minutes Contrast (mls) 120 mL Anesthesia 3 mg IV Versed, 75 mcg IV fentanyl. Start time 1254, end time 1336 Procedural Complication(s) None Disposition Recovery Room\\PACU I attest to the content of the Intraoperative Record and any orders documented therein. Any exceptions are noted below. SimpliVTG Card Cath Procedure Codes Cardiac Catheterization Procedure 1: Cardiovascular Cath Procedures: 55624 Coronaries Procedure 2: Cardiovascular Cath Procedures: 26029 (Doppler) Pressure Wire (LAD) Moderate Sedation Procedure 1: Sedation/Anesthesia: 10651 Mod Sedation by the same physician;Init15 Min Child Age 5 & Up (Initial 15 min, start 1254) Procedure 2: Sedation/Anesthesia: 43234 Mod Sedation by the same physician; Ea [id number] Minutes (Additional 27 min, end time 1336) Stenting Procedure 1: Cardiovascular Stent Procedures: 39361 Perc transcatheter placement of intracoronary stent(s), with ang (RCA) PG Care Time/CCT Total # of Minutes Spent Total Time Spent with Patient: Total time spent is greater than 50% in coordination of care (as documented) at patient's floor/unit and/or counseling patient:
[2023-03-01] MEDS: ONDANSETRON INJ 2 MG/ML 2 ML VIAL IV PRN ×2 (14:47→23:56)
[2023-03-01] MEDS ORDERED: PROMETHAZINE HCL INJ 25 MG/ML 1 ML VIAL IM STA (15:28)
--- NOTE | 2023-03-01 15:38 | Electrocardiogram Report ---
Test Reason : Blood Pressure : / mmHG Vent. Rate : 080 BPM Atrial Rate : 080 BPM P-R Int : 172 ms QRS Dur : 078 ms QT Int : 404 ms P-R-T Axes : 066 018 012 degrees QTc Int : 465 ms Normal sinus rhythm Cannot rule out Anterior infarct (cited on or before 28-SEP-2022) Abnormal ECG When compared with ECG of 28-FEB-2023 11:34, Nonspecific T wave abnormality now evident in Anterior leads Confirmed by Marito Hernandez ([id number]) on 03/01/2023 3:38:22 PM Referred By: Lani aSlter Confirmed By:Marito Hernandez
--- NOTE | 2023-03-01 15:43 | Electrocardiogram Report ---
Test Reason : Blood Pressure : / mmHG Vent. Rate : 074 BPM Atrial Rate : 074 BPM P-R Int : 174 ms QRS Dur : 086 ms QT Int : 426 ms P-R-T Axes : 029 022 025 degrees QTc Int : 472 ms Normal sinus rhythm Cannot rule out Anterior infarct (cited on or before 28-SEP-2022) Abnormal ECG When compared with ECG of 28-FEB-2023 16:33, (unconfirmed) No significant change was found Confirmed by Marito Hernandez ([id number]) on 03/01/2023 3:43:01 PM Referred By: Lani Salter Confirmed By:Marito Hernandez
--- NOTE | 2023-03-01 15:47 | Electrocardiogram Report ---
Test Reason : Blood Pressure : / mmHG Vent. Rate : 069 BPM Atrial Rate : 069 BPM P-R Int : 170 ms QRS Dur : 084 ms QT Int : 428 ms P-R-T Axes : 038 033 035 degrees QTc Int : 458 ms Normal sinus rhythm Cannot rule out Anterior infarct (cited on or before 28-SEP-2022) Abnormal ECG When compared with ECG of 28-FEB-2023 21:54, (unconfirmed) Premature ventricular complexes are no longer Present Premature supraventricular complexes are no longer Present ST no longer depressed in Lateral leads Confirmed by Marito Hernandez ([id number]) on 03/01/2023 3:47:30 PM Referred By: Lani Salter Confirmed By:Marito Hernandez
--- NOTE | 2023-03-01 15:58 | Electrocardiogram Report ---
Test Reason : Blood Pressure : / mmHG Vent. Rate : 086 BPM Atrial Rate : 086 BPM P-R Int : 200 ms QRS Dur : 080 ms QT Int : 410 ms P-R-T Axes : 061 039 033 degrees QTc Int : 490 ms Normal sinus rhythm Poor R wave progression, consider anterior AL vs. lead placement vs. LVH Prolonged QT Abnormal ECG When compared with ECG of 01-MAR-2023 04:39, (unconfirmed) No significant change was found Confirmed by Marito Hernandez ([id number]) on 03/01/2023 3:58:32 PM Referred By: Lani Salter Confirmed By:Marito Hernandez
[2023-03-01] MEDS: ACETAMINOPHEN 325 MG TAB PO PRN (17:53)
--- NOTE | 2023-03-01 17:57 | Billing Data ---
Date of Service March 01, 2023 Coding Level of Care Code 20324 SUB INP/OBS CARE MIN
[2023-03-01] MEDS: HYOSCYAMINE SULFATE 0.375 MG TABCR PO SCH (18:17)
[2023-03-01] MEDS: TICAGRELOR 90 MG TAB PO SCH (20:59)
[2023-03-01] MEDS ORDERED: ATORVASTATIN 40 MG TAB PO SCH (21:00)
[2023-03-01] MEDS: MELATONIN 3 MG TAB PO PRN (23:56)
[2023-03-02] MEDS: ACETAMINOPHEN 325 MG TAB PO PRN (06:25)
[2023-03-02] MEDS: NITROGLYCERIN 2% OINTMENT 30GM TUBE EXT SCH (06:26)
[2023-03-02 06:42] LABS: Basophils # (auto) 0.04 K/uL (0-0.2); Basophils % (auto) 0.4 %; Eosinophils # (auto) 0.05 K/uL (0-0.50); Eosinophils % (auto) 0.5 %; Hematocrit (blood only) 34.2 % (37.0-47.0); Hemoglobin 11.3 g/dl (12.0-16.0); Immature Granulocytes # (auto) 0.03 K/uL (0.01-0.20); Immature Granulocytes % (auto) 0.3 %; Lymphocytes # (auto) 1.39 K/uL (1.2-3.4); Lymphocytes % (auto) 14.9 %; Mean Corpuscular Hemoglobin 27.6 pg (25.0-34.0); Mean Corpuscular Volume 83.4 fL (80.0-100.0); Mean Platelet Volume 9.6 fL (9.4-12.4); Monocytes # (auto) 0.75 K/uL (0.11-0.59); Neutrophils # (auto) 7.08 K/uL (1.40-6.50); Neutrophils % (auto) 75.9 %; Platelet Count 264 K/uL (130-400); RDW Coefficient of Variation 13.9 % (11.5-14.5); RDW Standard Deviation 42.5 fL (36.4-46.3); White Blood Count 9.34 K/ul (4.8-10.8)
--- NOTE | 2023-03-02 07:21 | Hospitalist Progress Note ---
Date of Service March 02, 2023 Assessment & Plan (1) Chest pain: (2) History of cancer of right breast: (3) Prediabetes: (4) Calcification of abdominal aorta: Plan Pt is a 67 yo female with a past medical history of HTN, HLD, GERD, prediabetes, and hx of R breast cancer who presents on 02/28/23 for chest pain. #Chest pain Plan: Acute/unstable - high risk - Place in observation to pcu/tele, story very suspicious for unstable angina - Reviewed HS trop, elevated at 24, still having chest pain, ordered STAT dose of SL Nitro - Nitropaste q6 to start at 1800, morphine if still with unrelieved breakthrough chest pain - trop 24 -> 40 ->38 - continue daily ASA - Consulted cardiology; to do cath this afternoon #History of cancer of right breast Plan: Chronic/stable - S/p lumpectomy, lymph node excision, and radiation - Obtain a ddimer to exclude possibility of PE - If elevated, check CTA chest #Hypertension Plan: Acute/unstable - moderate risk - Pt currently with hypertensive urgency - Ordered a dose of IV Hydralazine 10mg x1 now - Nitropaste q6 as above - Continue Olmesartan 40mg daily and Norvasc 5mg daily - May need to adjust meds for adequate BP control #Hyperlipidemia Plan: Chronic/unstable - continue Atorvastatin 40mg qHS #GERD (gastroesophageal reflux disease) Plan: Chronic/stable - Continue PPI VTE ppx: Lovenox Code status: Full Admission and Anticipated Discharge Date Admission Date: February 28, 2023 Subjective Pt is a 67 yo female with a past medical history of HTN, HLD, GERD, prediabetes, and hx of R breast cancer who presents on 02/28/23 for chest pain. Today, Review of Systems Review of Systems: Constitutional: denies fever, chills, Cardio: + but improved chest pain, no palpitations Resp: denies shortness of breath, cough GI: denies abdominal pain, nausea, vomiting, Physical Exam Physical Exam: General:Alert and oriented, no acute distress, HEENT: Normocephalic, moist oral mucosa, Cardio: Regular rate and rhythm, no murmur, Resp:Lungs clear to auscultation b/l, no wheezes or rhonchi, Skin: Warm, pink, dry, Psych: Mood-affect congruence. Results & Data Results & Data Vital Signs (Past 12 Hours) Vital Signs Temp Pulse Pulse Resp BP BP Pulse Ox 03/02/23 03:55 36.9 C 70 16 113/64 97 03/01/23 23:44 36.7 C 79 20 143/69 H 97 03/01/23 22:08 66 03/01/23 19:32 36.7 C 84 20 131/73 97 O2 Del Method 03/02/23 03:55 Room Air 03/01/23 23:44 Room Air 03/01/23 22:08 03/01/23 19:32 Room Air
[2023-03-02] MEDS: TICAGRELOR 90 MG TAB PO SCH (08:32)
[2023-03-02] MEDS: METOPROLOL TARTRATE 25 MG TAB PO SCH (08:32)
[2023-03-02] MEDS: LOSARTAN POTASSIUM 50 MG TAB PO SCH (08:33)
[2023-03-02] MEDS: ASPIRIN 81 MG ECTAB PO SCH (08:33)
[2023-03-02] MEDS: amLODIPine BESYLATE 5 MG TAB PO SCH (08:34)
[2023-03-02] MEDS: HYOSCYAMINE SULFATE 0.375 MG TABCR PO SCH (10:08)
[2023-03-02] MEDS: ENOXAPARIN INJ 40 MG/0.4 ML SYR SQ SCH (10:09)
--- NOTE | 2023-03-02 12:46 | Electrocardiogram Report ---
Test Reason : Blood Pressure : / mmHG Vent. Rate : 072 BPM Atrial Rate : 072 BPM P-R Int : 180 ms QRS Dur : 088 ms QT Int : 444 ms P-R-T Axes : 031 029 036 degrees QTc Int : 486 ms Normal sinus rhythm with sinus arrhythmia Normal ECG When compared with ECG of 01-MAR-2023 14:00, No significant change was found Confirmed by Marito Hernandez ([id number]) on 03/02/2023 12:46:07 PM Referred By: Lani Salter Confirmed By:Marito Hernandez
--- NOTE | 2023-03-02 17:41 | Discharge Summary ---
Date of Service March 02, 2023 Admission HPI Per Admitting Provider Elisabeth Espinal is a pleasant 67 yo F with a pmhx of HTN, breast ca s/p lumpectomy, lymph node excision, and radiation, hyperlipidemia, OA and GERD who presented to the ER today c/o chest pain. Patient reports that she was awakened from sleep around 0230 this AM with left sided substernal chest pain that radiated into her neck and down her left arm, was associated with left arm paresthesias and nausea. She denies diaphoresis or shortness of breath. She indicates that was recently weaned off of Labetolol by her PCP but to compensate for this, her Olmesartan was increased from 20mg to 40mg. She is also on Norvasc 5mg daily for her blood pressure. Despite this, when she awoke, her blood pressure was in the 190s systolic and she took a dose of the left over Labetolol 50mg that she had at home. She laid back down and awoke a few hours later and the chest pain was still there. When the chest pain first occurred it was almost a 10/10 on the pain scale. She contacted her PCP due to the persistent pain and an appointment was arranged for 1030am. She was seen in the office, an EKG was performed which did not show any acute findings and she was subsequently referred to the ER for further work up. Her work up in the ED is notable for a nonacute EKG and an elevated HS trop of 24 with a repeat pending. Her blood pressure is markedly elevated at 193/84. Pt was medicated with a dose of ASA 324mg po x1 and referred for admission. Admission Exam Per Admitting Provider GENERAL: 67 yo Well-developed, well-nourished F. NAD. LUNGS: Clear to auscultation bilaterally. No accessory muscle use. No W/R/R. CARDIOVASCULAR: Regular rate and rhythm. No M/G/R. No JVD. L chest wall is TTP. ABDOMEN: Soft, non-tender and non-distended. BS normoactive x 4 quad. EXTREMITIES: No edema. Non-tender. Peripheral pulses +2/4. NEUROLOGIC: A&O x3. No focal neurological deficits. CN II-XII grossly intact. PSYCHIATRIC: Cooperative. Appropriate mood and affect. SKIN: Warm, dry, intact. No rashes or lesions. Principal Diagnosis Unstable angina Discharge Exam General:Alert and oriented, no acute distress, HEENT: Normocephalic, moist oral mucosa, Cardio: Regular rate and rhythm, no murmur, Resp:Lungs clear to auscultation b/l, no wheezes or rhonchi, Skin: Warm, pink, dry, Psych: Mood-affect congruence. Discharge Data Allergies Allergy/AdvReac Type Severity Reaction Status Date / Time morphine Allergy Mild HIVES Verified 02/28/23 16:15 Consultations 02/28/23 16:08 ED Decision to Admit Stat 02/28/23 17:44 Consult Cardiology Routine Procedures Performed Operation Date: 03/01/23 12:30 Actual Procedures p Cath, Left with Cors and Vent - Brayan Groves MD, PhD p Drug Eluting Stent SGl Vessel - Brayan Groves MD, PhD Ordered Studies 02/28/23 20:44 CT angio chest PE protocol Stat 03/01/23 09:58 CL Cath Imgs for PACS use only Routine Hospital Course (1) Chest pain: (2) History of cancer of right breast: (3) Prediabetes: (4) Calcification of abdominal aorta: Plan Pt is a 67 yo female with a past medical history of HTN, HLD, GERD, prediabetes, and hx of R breast cancer who presents on 02/28/23 for chest pain. Pt desires to go home today. Discussion was had about the use and importance of each of the medications she is to be discharged on, as well as importance of diet and exercise in the prevention of progression of CAD. #Unstable angina Plan: - now stable, trop 24 -> 40 ->38 - now s/p cath yesterday with 1 stent placed in RCA - will send home on therapy of ARB, B lindsey, statin, nitro, and aspirin + Brilinta #History of cancer of right breast Plan: Chronic/stable - S/p lumpectomy, lymph node excision, and radiation #Hypertension Plan: Stable now - Continue Olmesartan 40mg daily #Hyperlipidemia Plan: Chronic/unstable - continue Atorvastatin, now 80mg #GERD (gastroesophageal reflux disease) Plan: Chronic/stable - Continue PPI Code status: Full Disposition: Home Total Time Total Time Spent Total Time Spent (In Minutes): <30 (probably >30 but did not look at the time) Discharge Plan Discharge Items Patient Disposition: Home - Self-Care Reason For Visit: CHEST PAIN Discharge Diagnosis: Unstable angina, coronary artery disease Activity: Per Instructions section Non-emergency contact: Primary Care Provider 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 You were treated with a catheterization procedure and had a stent placed, along with medications. Your symptoms have improved, and we feel it is safe for you to return home. Medications: Your medication list has been reviewed and reconciled upon discharge to ensure accuracy and continuity of care. An updated list of all your medications is included with your hospital discharge paperwork. Please review this list closely, and make note of any changes. Please take the following medications for your coronary artery disease: * Brilinta (anti-platelet medication for the stent) * Aspirin (anti-platelet medication for the stent) * Metoprolol succinate (to decrease the stress on the heart) * Olmesartan (to decrease the stress on the heart) * Atorvastatin (to stabilize the cholesterol already in your coronary arteries) Please take the following medication as needed: * Nitroglycerine, sublingual (as needed for episodes of chest pain) If you have any issues filling these prescriptions, please call [phone] and ask to leave a message for Dr. Hathaway. Take your medications as instructed; do not skip a dose of your medicines. Make sure all of your doctors know every me dicine you are taking (including phkw-zag-skywmia medicines, vitamins, and supplements). Call your primary care provider before taking any new medicines (including over- the-counter medicines, vitamins, and supplements), because some of these may interact with your current medications, or may make your symptoms worse. Tell your primary care provider if you cannot afford your medications. Activity: You can do normal everyday activities as your body allows. Take rest breaks if you feel tired. Do not overexert. Stop activity if you have pain, shortness of breath or feel dizzy. Follow-up appointments: Make an appointment with your primary care physician within one week of discharge. A copy of this summary will be sent to them. Every time you see your primary care physician, or any other doctor, bring your medication list, a list of questions, and your recent weights. CONTACT YOUR PRIMARY CARE PROVIDER if you experience any of the following: Shortness of breath or difficulty breathing Swelling of your feet, ankles, hands or abdomen Feeling tired with normal activity or experiencing dizziness or fainting Difficulty following your treatment plan, or difficulty taking medications CALL 911 OR GO TO THE EMERGENCY DEPARTMENT if you experience any of the following: Severe abdominal pain or nausea/vomiting Severe chest pain, or chest pain that radiates (moves) to your jaw or arm Sudden, severe shortness of breath or difficulty breathing Thank you for allowing us to participate in your care. Pending Studies at Discharge: No Stand-Alone Forms: My [facility] Medications and DC Order Prescriptions: New metoprolol succinate 50 mg tablet extended release 24 hr 50 mg PO DAILY Qty: 30 1RF atorvastatin 40 mg Tablet 80 mg PO HS Qty: 90 0RF aspirin 81 mg Tablet,Delayed Release (Dr/Ec) 81 mg PO QAM Qty: 90 0RF Brilinta 90 mg Tablet 90 mg PO BID Qty: 30 1RF Continued hyoscyamine sulfate 0.125 mg tablet, sublingual 0.125 mg PO TID PRN (Reason: dyspepsia) Qty: 90 1RF olmesartan 40 mg tablet 40 mg PO DAILY Qty: 90 1RF omeprazole 40 mg capsule,delayed release(DR/EC) 40 mg PO DAILY PRN (Reason: Gi Upset) tramadol 50 mg tablet 25 mg PO DAILY PRN (Reason: breakthrough joint pain) Qty: 10 0RF melatonin 10 mg capsule 10 mg PO HS PRN (Reason: Sleep) dicyclomine 10 mg capsule 10 mg PO DAILY PRN (Reason: Cramps) Discontinued amlodipine 5 mg tablet 5 mg PO DAILY Qty: 90 3RF Rx Instructions: d/c combination med amlodipine/olmesartan. No Action nitroglycerin 0.4 mg Tablet, Sublingual 0.4 mg sublingual Q5M PRN (Reason: Chest Pain) Discharge Orders: Discharge Order (Routine); Ordered 03/02/23 Ordered By: Amrita Hathaway Admission Data Admit Date/Time: 02/28/23 16:04 Attending Provider: Jordan Espinosa Admit Provider: Clifford Sharma Primary Care Provider: Sarah Quach Other Providers: Mauri Galindo ; Marito Hernandez ; Clifford Sharma Other Interventions: Discharge Summary Assessment (RN) Last Done: 03/02/23 17:30 Supervising Physician Co-Signing Physician Notes I personally examined the patient and verified all hull points of history and exam, discussed case, and agree with decision making with Dr Hathaway Feeling better and would like to go home. Extensive discussion with patient on med management and lifestyle management. Vitals noted, in general she is awake and alert pleasant no distress. HEENT normocephalic atraumatic mucous membranes moist. Breathing unlabored no accessory muscle use good effort. Skin shows no rashes no pallor or icterus. Neuro without focal deficits. Unstable angina/coronary artery disease status post stentingmed management, secondary risk reduction, lifestyle change. Discussed med management and the need for multiple meds at length and in depth, med by med, and patient expressed good understanding. Then discussed lifestyle with goal of 30 minutes of light cardiovascular exercise every day (after seen in follow-up by cardiology) and Mediterranean diet. Extensive discussions on both, patient and asked good questionsparticularly on the lifestyle side of the discussion, safe/stable for home. Resident Activity Tracking Resident Involvement: Resident Care Provided Care Provided: Adult Hospital Medicine
--- NOTE | 2023-03-02 19:20 | Billing Data ---
Date of Service March 02, 2023 Coding Level of Care Code 09331 IN/OBS DISCH 30 MIN/LESS
== END 2023-03-02 18:30 | disposition home or self-care (01) ==
LOC: 4W 11:26 → ED 11:26 → SUATTDRO 16:04 → 4W 17:36

== ENCOUNTER 2023-03-18 14:16 | Inpatient (IN) ==
[2023-03-18] MEDS ORDERED: KETOROLAC TROMETHAMINE 15 MG/ML VIAL IV STA (14:32)
[2023-03-18] MEDS ORDERED: LORazepam 2 MG/1 ML VIAL IV STA (14:32)
[2023-03-18] MEDS ORDERED: ONDANSETRON INJ 2 MG/ML 2 ML VIAL IV STA (14:32)
[2023-03-18] MEDS ORDERED: HYDROmorphone INJ 0.5 MG/0.5 ML SYR IV STA (14:35)
[2023-03-18] MEDS ORDERED: HYDROmorphone INJ 0.5 MG/0.5 ML SYR IV PRN (14:35)
--- NOTE | 2023-03-18 14:45 | Emergency Department Note ---
Impression & Plan Lower back pain, Ambulatory dysfunction, Lumbar disc herniation ED Provider Note NAME: MICHELA BRUNO AGE: 67 SEX: F : 1955 ARRIVES VIA: Ambulance INFORMANT: [Patient][ems] ED PROVIDER(S): [Rafa Mena MD] CHIEF COMPLAINT: Back pain HISTORY OF PRESENT ILLNESS: The patient is a 67-year-old female who states that 4 days ago she was gardening. She stood up and felt something pop in her back and she had some lower back pain. The pain was midline. She has had pain persistently since. She has tried some tramadol, Flexeril and other wtgn-ywe-nzwglbr meds. The pain has been bearable. The patient went to bed last evening and this morning, the pain was so severe that she could not move, she has been urinating in bed because she cannot get out of bed. She has no real pain radiation down her legs. The pain worsens with any movement and she states that at times, there seems to be spasm which causes intense discomfort. She has not had fever, chills, cough or congestion. There has been no trauma. She has no issues similar to this in her past history. The patient states that she did have a RCA stent placed about 2-1/2 weeks ago. She is on aspirin and Plavix. In route, the patient received 200 mcg of fentanyl which did help although, the medication seems to be wearing off. PMHx/PSHx: See Below SOCIAL HISTORY: See Below. PHYSICAL EXAM: GENERAL: Patient is in moderate distress from pain. Lying flat and supine HEENT: No acute trauma, normocephalic atraumatic, mucous membranes moist, no nasal congestion. NECK: No stridor, no adenopathy, no meningismus, trachea is midline. LUNGS: Clear to auscultation bilaterally, no wheeze, no rhonchi, breath sounds equal. HEART: Without murmurs gallops or rubs, regular rate and rhythm. ABDOMEN: Soft, nontender, bowel sounds positive, no peritonitis. EXTREMITIES: No cyanosis or edema, full range of motion of all the joints wi thout pain or difficulty, no signs for acute trauma. NEUROLOGIC: Oriented x 3, no acute motor or sensory deficits, no focal weakness. She has 1/4 Achilles reflexes bilaterally and 2/4 patellar reflexes bilaterally. SKIN: No rash, no jaundice, no diaphoresis. Back: Could not be examined initially as she could not move or roll. DIFFERENTIAL DIAGNOSIS: Herniated disc disease, nerve impingement, muscle spasm, fracture, sprain, strain, hematoma, among others. EMERGENCY DEPARTMENT COURSE/PROCEDURES: Prior/Outside records reviewed: EMS notes. Observation Note: The patient was placed in observation status at 1421. Observation was initiated to ensure adequate pain control. During the time in observation, the patient was frequently reassessed and received IV pain and nausea medication. On Final reassessment the patient was still in significant discomfort and unable to ambulate independently--the patient will be admitted at this time. Total observation time of around 7 hours. MEDICAL DECISION MAKING: There is no leukocytosis. A very mild anemia was seen. There was no renal failure or significant electrolyte abnormality. On exam, the patient had significant back discomfort with any type of movement. There were no reflex deficits in the lower extremities. She had no radiation of pain down the legs. An MRI of the lumbar spine was done. She does have a central disc herniation without significant nerve impingement. No significant spinal canal stenosis. The patient received IV Zofran, IV Ativan, IV Toradol, IV Dilaudid. She was gi jovanna IV Decadron. The patient has been here for several hours without significant improvement. We did attempt an ambulation trial however, the patient could not walk well even with a walker. She does not think she is going to be able to go home. She does have steps to walk within her house. The patient will be hospitalized for pain control. It does not appear that the findings on MRI are acutely surgical. I am hopeful the steroids will help some of the inflammation and improve her pain. She may benefit from a pain management consult if not improving with typical IV medications. I did speak with the patient, I spoke with case management, the on-call hospitalist was consulted. DISPOSITION: Patient's presentation and findings warrant a hospital stay. Past Med/Surg History Medical History B12 deficiency Breast cancer (~2016) Calcification of abdominal aorta on CT 03/2020 Chest pain Elevated troponin I level Gastroparesis GERD (gastroesophageal reflux disease) History of anesthesia reaction 2015 s/p Laparotomy experienced CHF symptoms. no problems currently. 2014 s/p vocal cord surgery/repair patient experienced pulmonary flash edema History of cancer of right breast Hyperlipidemia Hypertension Left ventricular hypertrophy Osteoarthritis Osteopenia Prediabetes SNHL (sensorineural hearing loss) Vocal cord nodule Surgical History H/O breast biopsy H/O exploratory laparotomy H/O laparoscopy H/O partial mastectomy H/O repair of left rotator cuff H/O shoulder surgery History of colonoscopy History of ERCP History of esophagogastroduodenoscopy (EGD) History of foot surgery History of incisional hernia repair History of nasal surgery History of throat surgery Status post tubal ligation Family History Mother Hypertension Hearing loss Sister Allergies Other No family history of adverse response to anesthesia No family history of bleeding disorder Denies family history of Ovarian cancer Breast cancer Colorectal cancer Social History Smoking Status: Never smoker Second Hand Exposure: No; Do You Dip or Chew Tobacco: No; Hx Alcohol Use: No Hx Substance Use: No Preferred Language: Croatian Communication Ability: Effective 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 Beliefs That Will Affect Care: None marital status: Current Living Situation: Spouse current occupational status: retired Feels Safe at Home: Yes Childhood Exposure to Second-Hand Smoke: No Dental Care, Regularly: No Physical Activity Frequency: Does not Exercise Seatbelt Use: always Sunscreen Use: Yes Assistive Devices: None Allergies Allergies Allergy/AdvReac Type Severity Reaction Status Date / Time morphine Allergy Mild HIVES Verified 03/18/23 20:23 Home Meds Home Medications Medication Instructions Recorded Confirmed melatonin 10 mg capsule 10 mg PO HS PRN Sleep 11/05/20 03/18/23 dicyclomine 10 mg capsule 10 mg PO DAILY PRN Cramps 08/01/22 03/18/23 nitroglycerin 0.4 mg sublingual 0.4 mg sublingual Q5M PRN Chest 03/02/23 03/18/23 tablet Pain clopidogrel 75 mg tablet (Plavix) 75 mg PO DAILY 03/18/23 03/18/23 famotidine 10 mg tablet 0 mg PO DAILY 03/18/23 03/18/23 Previous Rx's Medication Instructions Recorded hyoscyamine sulfate 0.125 mg 0.125 mg PO TID PRN dyspepsia #90 05/15/22 sublingual tablet tabs tramadol 50 mg tablet 25 mg PO DAILY PRN breakthrough 09/13/22 joint pain #10 tabs olmesartan 40 mg tablet 40 mg PO DAILY #90 tabs 01/17/23 aspirin 81 mg tablet,delayed 81 mg PO QAM #90 tabs 03/02/23 release atorvastatin 40 mg tablet 80 mg PO HS #90 tabs 03/02/23 metoprolol succinate 50 mg 50 mg PO DAILY #30 tabs 03/02/23 tablet,extended release 24 hr Results & Data (ED) Vital Signs Vital Signs - 24 hr 03/18/23 14:38 03/18/23 15:38 03/18/23 15:38 Temperature 36.5 C Temperature Source Oral Pulse Rate 60 Pulse Rate [Apical] Respiratory Rate 18 Respiratory Effort / Characteristics Respiratory Depth Respiratory Pattern Blood Pressure 172/82 H Blood Pressure [Left Arm] Blood Pressure Mean 112 Blood Pressure Mean [Left Arm] Pulse Oximetry 93 85 L 96 Oxygen Delivery Method Room Air Room Air Nasal Cannula Oxygen Flow Rate 2 Sepsis New/Unexplained Change in Mental Status No Sepsis Action Taken by Nursing No Action Required 03/18/23 15:45 03/18/23 17:30 03/18/23 20:15 Temperature Temperature Source Pulse Rate 58 L Pulse Rate [Apical] 59 L 59 L Respiratory Rate 17 13 Respiratory Effort / Characteristics Non-Labored Spontaneous Non-Labored Spontaneous Respiratory Depth Normal Normal Respiratory Pattern Regular Blood Pressure Blood Pressure [Left Arm] 142/70 H 151/79 H Blood Pressure Mean Blood Pressure Mean [Left Arm] 94 103 Pulse Oximetry 98 100 Oxygen Delivery Method Nasal Cannula Room Air Oxygen Flow Rate 2 Sepsis New/Unexplained Change in Mental Status Sepsis Action Taken by [facility] Medications Current Medication List: was personally reviewed by me Laboratory Data Attestation: I reviewed the patient's lab results. 03/18/23 14:47 03/18/23 14:47 Lab Results 03/18/23 03/18/23 Range/Units 14:47 14:47 WBC 9.14 (4.8-10.8) K/ul RBC 4.14 L (4.20-5.40) M/uL Hgb 11.3 L (12.0-16.0) g/dl Hct 35.0 L (37.0-47.0) % MCV 84.5 (80.0-100.0) fL MCH 27.3 (25.0-34.0) pg MCHC 32.3 (32.0-36.0) g/dL RDW Std Deviation 42.0 (36.4-46.3) fL RDW Coeff of Rosa Maria 13.7 (11.5-14.5) % Plt Count 247 (130-400) K/uL MPV 10.2 (9.4-12.4) fL Immature Gran % (Auto) 0.3 % Neut % (Auto) 78.0 % Lymph % (Auto) 12.3 % [place] % (Auto) 8.0 % Eos % (Auto) 1.0 % Baso % (Auto) 0.4 % Neut # (Auto) 7.13 H (1.40-6.50) K/uL Lymph # (Auto) 1.12 L (1.20-3.40) K/uL [place] # (Auto) 0.73 H (0.11-0.59) K/uL Eos # (Auto) 0.09 (0.00-0.50) K/uL Baso # (Auto) 0.04 (0.00-0.20) K/uL Immature Gran # (Auto) 0.03 (0.01-0.20) K/uL Sodium 139 (136-145) mmol/L Potassium 4.0 (3.5-5.1) mmol/L Chloride 105 (98-107) mmol/L Carbon Dioxide 27 (21-32) mmol/L Anion Gap 7 (3-11) BUN 16 (6-23) mg/dl Creatinine 0.85 (0.6-1.2) mg/dl Est Cr Clr Drug Dosing 75.3 ml/min Est GFR ( Amer) 81.6 ml/min Est GFR (Non-Af Amer) 70.4 ml/min BUN/Creatinine Ratio 18.8 (10-20) Glucose 97 (70-99(Fasting)) mg/dl Calcium 9.0 (8.6-10.3) mg/dl Administered Medications Discontinued Medications Dexamethasone Sodium Phosphate (DexamethasonePf 10 Mg/Ml Vial) 10 mg IV NOW ONE Stop: 03/18/23 20:51 Last Admin: 03/18/23 21:05 Dose: 10 mg Documented By: MED Hydromorphone HCl (Hydromorphone Inj 0.5 Mg/0.5 Ml Syr) 0.5 mg IV NOW STA Stop: 03/18/23 14:36 Last Admin: 03/18/23 15:12 Dose: 0.5 mg Documented By: RSCasimiro Ketorolac Tromethamine (Ketorolac Tromethamine 15 Mg/Ml Vial) 15 mg IV NOW STA Stop: 03/18/23 14:33 Last Admin: 03/18/23 15:12 Dose: 15 mg Documented By: RSCasimiro Lorazepam (Lorazepam 2 Mg/1 Ml Vial) 0.5 mg IV NOW STA Stop: 03/18/23 14:33 Last Admin: 03/18/23 16:25 Dose: 0.5 mg Documented By: Ondansetron HCl (Ondansetron Inj 2 Mg/Ml 2 Ml Vial) 4 mg IV NOW STA Stop: 03/18/23 14:33 Last Admin: 03/18/23 15:12 Dose: 4 mg Documented By: JAYY Imaging Data Radiologist's Impression: Lumbar Spine MRI 03/18/23 14:32 LUMBAR SPINE MRI HISTORY: heard pop--can not move, incontinent TECHNIQUE: Multiplanar multisequence MRI of the lumbar spine was performed without the use of contrast. COMPARISON: Lumbar spine MRI 07/27/2013. FINDINGS: For the purpose of the report the L5-S1 disc space will be located on axial image 27 of 30. No fracture or subluxation within the lumbar spine. Disc spaces are preserved for age. The conus terminates at the L1-L2 disc space level. Small vertebral body hemangioma is noted at T12. No suspicious osseous lesions identified. The visualized sacrum is intact. Paravertebral soft tissues are unremarkable. Mild facet degenerative changes at L4-L5 and L5-S1. L1-L2: No significant central canal or neural foraminal narrowing. L2-L3: No significant central canal or neural foraminal narrowing. L3-L4: No significant central canal or neural foraminal narrowing. L4-L5: No significant central canal or neural foraminal narrowing. L5-S1: There is a small broad-based posterior central disc protrusion which measures approximately 15 x 3 mm. This abuts but does not displace the transiting bilateral S1 nerve root. No significant central canal or neural foraminal narrowing. IMPRESSION: 1. A small broad-based posterior central disc protrusion at L5-S1. This abuts but does not displace the transiting bilateral S1 nerve roots. 2. No significant central canal or neural foraminal narrowing. 3. No fracture or subluxation. ACT 112: Negative or not required by law. Electronically signed by: Santiago Caldera M.D. 03/18/2023 8:11 PM Discharge Plan Visit Data Chief Complaint: Back Injury/Pain Stated Complaint: BACK PAIN ED Provider: Rafa Mena Discharge Problem: Lower back pain, Ambulatory dysfunction, Lumbar disc herniation Patient Disposition: Admitted As Inpatient Condition: Fair Forms Stand Alone Forms: [facility] Prescriptions Prescriptions: No Action hyoscyamine sulfate 0.125 mg tablet, sublingual 0.125 mg PO TID PRN (Reason: dyspepsia) Qty: 90 1RF olmesartan 40 mg tablet 40 mg PO DAILY Qty: 90 1RF tramadol 50 mg tablet 25 mg PO DAILY PRN (Reason: breakthrough joint pain) Qty: 10 0RF melatonin 10 mg capsule 10 mg PO HS PRN (Reason: Sleep) dicyclomine 10 mg capsule 10 mg PO DAILY PRN (Reason: Cramps) famotidine 10 mg Tablet 0 mg PO DAILY clopidogrel [Plavix] 75 mg tablet 75 mg PO DAILY metoprolol succinate 50 mg tablet extended release 24 hr 50 mg PO DAILY Qty: 30 1RF atorvastatin 40 mg Tablet 80 mg PO HS Qty: 90 0RF aspirin 81 mg Tablet,Delayed Release (Dr/Ec) 81 mg PO QAM Qty: 90 0RF nitroglycerin 0.4 mg Tablet, Sublingual 0.4 mg sublingual Q5M PRN (Reason: Chest Pain) Referrals Referrals: Sarah Quach MD [Primary Care Provider] -
[2023-03-18 15:32] LABS: Basophils # (auto) 0.04 K/uL (0.00-0.20); Basophils % (auto) 0.4 %; Eosinophils # (auto) 0.09 K/uL (0.00-0.50); Hemoglobin 11.3 g/dl (12.0-16.0); Immature Granulocytes # (auto) 0.03 K/uL (0.01-0.20); Immature Granulocytes % (auto) 0.3 %; Lymphocytes # (auto) 1.12 K/uL (1.20-3.40); Lymphocytes % (auto) 12.3 %; Mean Corpuscular Hemoglobin 27.3 pg (25.0-34.0); Mean Corpuscular Hgb Conc 32.3 g/dL (32.0-36.0); Mean Corpuscular Volume 84.5 fL (80.0-100.0); Mean Platelet Volume 10.2 fL (9.4-12.4); Monocytes # (auto) 0.73 K/uL (0.11-0.59); Neutrophils # (auto) 7.13 K/uL (1.40-6.50); Platelet Count 247 K/uL (130-400); RDW Coefficient of Variation 13.7 % (11.5-14.5); Red Blood Count 4.14 M/uL (4.20-5.40); White Blood Count 9.14 K/ul (4.8-10.8)
[2023-03-18 15:39] LABS: BUN Creatinine Ratio 18.8 (10-20); Creatinine Clr Calc Pharmacy 75.3 ml/min; Est GFR (African American) 81.6 ml/min; Est GFR (Non-African American) 70.4 ml/min
--- NOTE | 2023-03-18 20:13 | Magnetic Resonance Report ---
LUMBAR SPINE MRI HISTORY: heard pop--can not move, incontinent TECHNIQUE: Multiplanar multisequence MRI of the lumbar spine was performed without the use of contras t. COMPARISON: Lumbar spine MRI 07/27/2013. FINDINGS: For the purpose of the report the L5-S1 disc space will be located on axial image 27 of 30. No fracture or subluxation within the lumbar spine. Disc spaces are preserved for age. The conus term inates at the L1-L2 disc space level. Small vertebral body hemangioma is noted at T12. No suspicious osseous lesions identified. The visualized sacrum is intact. Paravertebral soft tissues are unremarka ble. Mild facet degenerative changes at L4-L5 and L5-S1. L1-L2: No significant central canal or neural foraminal narrowing. L2-L3: No significant central canal or neural foraminal narrowing. L3-L4: No significant central canal or neural foraminal narrowing. L4-L5: No significant central canal or neural foraminal narrowing. L5-S1: There is a small broad-based posterior central disc protrusion which measures approximately 15 x 3 mm. This abuts but does not displace the transiting bilateral S1 nerve root. No significant cent ral canal or neural foraminal narrowing. IMPRESSION: 1. A small broad-based posterior central disc protrusion at L5-S1. This abuts but does not displace t he transiting bilateral S1 nerve roots. 2. No significant central canal or neural foraminal narrowing. 3. No fracture or subluxation. ACT 112: Negative or not required by law. Electronically signed by: Santiago Caldera M.D. 03/18/2023 8:11 PM
[2023-03-18] MEDS ORDERED: dexAMETHasone**PF** 10 MG/ML VIAL IV ONE (20:50)
[2023-03-18] MEDS ORDERED: HYDROmorphone INJ 1 MG/ML SYRINGE IV PRN (21:33)
--- NOTE | 2023-03-18 21:40 | History & Physical Report ---
Date of Service March 18, 2023 Assessment & Plan (1) Lower back pain: (2) Degenerative disc disease at L5-S1 level: (3) Lumbar disc herniation: (4) S/P coronary artery stent placement: (5) Hypertension: (6) Hyperlipidemia: (7) GERD (gastroesophageal reflux disease): (8) S/P right coronary artery (RCA) stent placement: Plan Intractable low back pain/L5-S1 broad-based posterior central disc protrusion- Received dexamethasone 10 mg IV in ED, will continue 6 mg IV every 8 hours Tramadol 50 mg by mouth every 4 hours as needed for moderate pain Dilaudid 0.5 mg IV every 3 hours as needed severe pain Dilaudid 1 mg IV every 3 hours as needed for breakthrough pain Zofran 4 mg IV every 6 hours as needed Consult orthopedic spine surgery Dr. Carl CAD status post RCA stent- Continue aspirin, clopidogrel, metoprolol succinate, olmesartan and atorvastatin History of Present Illness Chief Complaint: The patient presents to the emergency department with worsening lower back pain, that began 4 days ago while out weeding in the yard Primary Care Provider: Sarah Quach MD The patient is a 67-year-old female with a past medical history including CAD, status post RCA drug-eluting stent placement on 03-01-2023, B12 deficiency, prediabetes, LVH, breast cancer, hypertension, hyperlipidemia and GERD. She presents the emergency department with intractable low back pain, worsening over the past 4 days MRI lumbar spine shows a small broad-based posterior central disc protrusion at L5-S1. This abuts but does not displace the transiting bilateral S1 nerve roots Allergies Allergy/AdvReac Type Severity Reaction Status Date / Time morphine Allergy Mild HIVES Verified 03/18/23 20:23 Home Medications Medication Instructions Recorded Confirmed Type melatonin 10 mg capsule 10 mg PO HS PRN Sleep 11/05/20 03/18/23 History hyoscyamine sulfate 0.125 mg 0.125 mg PO TID PRN dyspepsia #90 05/15/22 03/18/23 Rx sublingual tablet tabs dicyclomine 10 mg capsule 10 mg PO DAILY PRN Cramps 08/01/22 03/18/23 History tramadol 50 mg tablet 25 mg PO DAILY PRN breakthrough 09/13/22 03/18/23 Rx joint pain #10 tabs olmesartan 40 mg tablet 40 mg PO DAILY #90 tabs 01/17/23 03/18/23 Rx aspirin 81 mg tablet,delayed 81 mg PO QAM #90 tabs 03/02/23 03/18/23 Rx release atorvastatin 40 mg tablet 80 mg PO HS #90 tabs 03/02/23 03/18/23 Rx metoprolol succinate 50 mg 50 mg PO DAILY #30 tabs 03/02/23 03/18/23 Rx tablet,extended release 24 hr nitroglycerin 0.4 mg sublingual 0.4 mg sublingual Q5M PRN Chest 03/02/23 03/18/23 History tablet Pain clopidogrel 75 mg tablet (Plavix) 75 mg PO DAILY 03/18/23 03/18/23 History famotidine 10 mg tablet 0 mg PO DAILY 03/18/23 03/18/23 History Past Med/Surg History Medical History (Updated 03/19/23 @ 01:34 by Mauri Galindo MD) B12 deficiency Breast cancer (~2016) Calcification of abdominal aorta on CT 03/2020 Chest pain Elevated troponin I level Gastroparesis GERD (gastroesophageal reflux disease) History of anesthesia reaction 2015 s/p Laparotomy experienced CHF symptoms. no problems currently. 2015 s/p vocal cord surgery/repair patient experienced pulmonary flash edema History of cancer of right breast Hyperlipidemia Hypertension Left ventricular hypertrophy Osteoarthritis Osteopenia Prediabetes SNHL (sensorineural hearing loss) Vocal cord nodule Surgical History (Updated 03/19/23 @ 01:34 by Mauri Galindo MD) H/O breast biopsy right H/O exploratory laparotomy Description: To repair bowel injury at time of laparoscopy for gallbladder. H/O laparoscopy exploratory Description: Diagnostic laparoscopy, running of the small bowel, laparoscopic cholecystectomy with cholangiogram 09/03/14 Dr. Rincon Repair Small bowel enterotomy 09/04/14 Dr. Rincon H/O partial mastectomy Right with lymph node removal H/O repair of left rotator cuff H/O shoulder surgery Right shoulder April 2010-rotator cuff repair History of colonoscopy History of ERCP History of esophagogastroduodenoscopy (EGD) History of foot surgery right foot-tendon repair History of incisional hernia repair Description: Repair of incisional hernia with 15cm surgimesh 11/30/15 Dr. Rincon Production Engineer Track Nando Islas PA-C History of nasal surgery History of throat surgery to repair vocal cord injury that she indured during the emergency laparotomy 2014. 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 Beliefs That Will Affect Care: None marital status: Current Living Situation: Spouse current occupational status: retired Feels Safe at Home: Yes Safety Concerns: Feels Safe At This Time Childhood Exposure to Second-Hand Smoke: No Dental Care, Regularly: No Physical Activity Frequency: Does not Exercise Seatbelt Use: always Sunscreen Use: Yes Assistive Devices: Glasses Review of Systems Review of Systems: The patient denies chest pain, palpitations, shortness of breath, dyspnea on exertion, cough, lower extremity swelling, sore throat, fevers, chills, sweats, weight change, fatigue, nausea, vomiting, diarrhea , constipation, abdominal pain, pelvic pain, blood in urine or stool, dysuria, urinary frequency or urgency, lightheadedness, dizziness, headache, memory loss, loss of consciousness, rash, abnormal bruising or bleeding, imbalance, focal or generalized weakness, numbness or tingling in arms or legs, generalized arthralgias or myalgias, neck pain, or night sweats. The review of systems is otherwise negative other than for that already noted above, and at least 10 systems have been reviewed. Physical Exam Physical Exam: The patient is awake, alert and oriented 3, well developed and well nourished, normocephalic and atraumatic, lying in bed and in no acute distress. HEENT--PERRL, EOMI, mucous membranes and oropharynx normal. Neck--supple. No JVD. No bruits. Thyroid normal, trachea midline, no adenopathy. Heart--normal S1 and S2. No murmurs, rubs or gallops. Lungs--clear bilaterally, no respiratory distress, no accessory muscle use. Abdomen--normal bowel sounds and soft. Nontender. Nondistended, no hernias or masses, no organomegaly. Extremities--no cyanosis or clubbing. No edema. There are good distal pulses b/l. Dermatologic--normal skin turgor, normal color, no abnormal lymph nodes, no rash. Neurologic--cranial nerves II through XII grossly intact. Rheumatologic--limited exam due to pain Psychiatric--normal affect. Results & Data Results & Data Vital Signs (Past 12 Hours) Vital Signs Temp Pulse Pulse Resp BP BP Pulse Ox 03/18/23 20:15 59 L 13 151/79 H 100 03/18/23 17:30 59 L 17 142/70 H 98 03/18/23 15:45 58 L 03/18/23 15:38 96 03/18/23 15:38 85 L 03/18/23 14:38 36.5 C 60 18 172/82 H 93 O2 Del Method O2 Flow Rate 03/18/23 20:15 Room Air 03/18/23 17:30 Nasal Cannula 2 03/18/23 15:45 03/18/23 15:38 Nasal Cannula 2 03/18/23 15:38 Room Air 03/18/23 14:38 Room Air Laboratory Results Laboratory Results WBC 9.14 K/ul (4.8-10.8) 03/18/23 14:47 RBC 4.14 M/uL (4.20-5.40) L 03/18/23 14:47 Hgb 11.3 g/dl (12.0-16.0) L 03/18/23 14:47 Hct 35.0 % (37.0-47.0) L 03/18/23 14:47 MCV 84.5 fL (80.0-100.0) 03/18/23 14:47 MCH 27.3 pg (25.0-34.0) 03/18/23 14:47 MCHC 32.3 g/dL (32.0-36.0) 03/18/23 14:47 RDW Std Deviation 42.0 fL (36.4-46.3) 03/18/23 14:47 RDW Coeff of Rosa Maria 13.7 % (11.5-14.5) 03/18/23 14:47 Plt Count 247 K/uL (130-400) 03/18/23 14:47 MPV 10.2 fL (9.4-12.4) 03/18/23 14:47 Immature Gran % (Auto) 0.3 % 03/18/23 14:47 Neut % (Auto) 78.0 % 03/18/23 14:47 Lymph % (Auto) 12.3 % 03/18/23 14:47 [place] % (Auto) 8.0 % 03/18/23 14:47 Eos % (Auto) 1.0 % 03/18/23 14:47 Baso % (Auto) 0.4 % 03/18/23 14:47 Neut # (Auto) 7.13 K/uL (1.40-6.50) H 03/18/23 14:47 Lymph # (Auto) 1.12 K/uL (1.20-3.40) L 03/18/23 14:47 [place] # (Auto) 0.73 K/uL (0.11-0.59) H 03/18/23 14:47 Eos # (Auto) 0.09 K/uL (0.00-0.50) 03/18/23 14:47 Baso # (Auto) 0.04 K/uL (0.00-0.20) 03/18/23 14:47 Immature Gran # (Auto) 0.03 K/uL (0.01-0.20) 03/18/23 14:47 Sodium 139 mmol/L (136-145) 03/18/23 14:47 Potassium 4.0 mmol/L (3.5-5.1) 03/18/23 14:47 Chloride 105 mmol/L (98-107) 03/18/23 14:47 Carbon Dioxide 27 mmol/L (21-32) 03/18/23 14:47 Anion Gap 7 (3-11) 03/18/23 14:47 BUN 16 mg/dl (6-23) 03/18/23 14:47 Creatinine 0.85 mg/dl (0.6-1.2) 03/18/23 14:47 Est Cr Clr Drug Dosing 75.3 ml/min 03/18/23 14:47 Est GFR ( Amer) 81.6 ml/min 03/18/23 14:47 Est GFR (Non-Af Amer) 70.4 ml/min 03/18/23 14:47 BUN/Creatinine Ratio 18.8 (10-20) 03/18/23 14:47 Glucose 97 mg/dl (70-99(Fasting)) 03/18/23 14:47 Calcium 9.0 mg/dl (8.6-10.3) 03/18/23 14:47 Impressions Lumbar Spine MRI 03/18/23 14:32 LUMBAR SPINE MRI HISTORY: heard pop--can not move, incontinent TECHNIQUE: Multiplanar multisequence MRI of the lumbar spine was performed without the use of contrast. COMPARISON: Lumbar spine MRI 07/27/2013. FINDINGS: For the purpose of the report the L5-S1 disc space will be located on axial image 27 of 30. No fracture or subluxation within the lumbar spine. Disc spaces are preserved for age. The conus terminates at the L1-L2 disc space level. Small vertebral body hemangioma is noted at T12. No suspicious osseous lesions identified. The visualized sacrum is intact. Paravertebral soft tissues are unremarkable. Mild facet degenerative changes at L4-L5 and L5-S1. L1-L2: No significant central canal or neural foraminal narrowing. L2-L3: No significant central canal or neural foraminal narrowing. L3-L4: No significant central canal or neural foraminal narrowing. L4-L5: No significant central canal or neural foraminal narrowing. L5-S1: There is a small broad-based posterior central disc protrusion which measures approximately 15 x 3 mm. This abuts but does not displace the transiting bilateral S1 nerve root. No significant central canal or neural foraminal narrowing. IMPRESSION: 1. A small broad-based posterior central disc protrusion at L5-S1. This abuts but does not displace the transiting bilateral S1 nerve roots. 2. No significant central canal or neural foraminal narrowing. 3. No fracture or subluxation. ACT 112: Negative or not required by law. Electronically signed by: Santiago Caldera M.D. 03/18/2023 8:11 PM Code Status & VTE Plan Code Status Full code VTE Prophylaxis Plan VTE Prophylaxis will be ordered: Yes PG Care Time/CCT Total # of Minutes Spent Total Time Spent with Patient: Total time spent is greater than 50% in coordination of care (as documented) at patient's floor/unit and/or counseling patient: Coding Level of Care Code 75018 INT INP/OBS CARE 75MIN Diagnoses Lower back pain M54.50 Back pain laterality: midline Chronicity: acute Sciatica presence: without sciatica Degenerative disc disease at L5-S1 level M51.37 Lumbar disc herniation M51.26 S/P coronary artery stent placement Z95.5 Hypertension I10 Hyperlipidemia E78.5 GERD (gastroesophageal reflux disease) K21.9 S/P right coronary artery (RCA) stent placement Z95.5 (1) Lower back pain Back pain laterality: midline Chronicity: acute Sciatica presence: without sciatica Qualified Code(s): M54.50 - Low back pain, unspecified
[2023-03-18] MEDS: HYDROmorphone INJ 0.5 MG/0.5 ML SYR IV PRN (22:13)
[2023-03-18] MEDS ORDERED: ONDANSETRON INJ 2 MG/ML 2 ML VIAL IV PRN (23:05)
[2023-03-18] MEDS ORDERED: DICYCLOMINE HCL 10 MG CAP PO PRN (23:05)
[2023-03-18] MEDS ORDERED: NITROGLYCERIN SL 0.4 MG/TAB TAB SL PRN (23:05)
[2023-03-19] MEDS: traMADol HCL 50 MG TABLET PO PRN (03:00)
[2023-03-19] MEDS: dexAMETHasone 6 MG in SYRINGE 0 ML IV SCH ×3 (06:02→21:34)
[2023-03-19] MEDS: HYDROmorphone INJ 0.5 MG/0.5 ML SYR IV PRN ×3 (07:25→17:39)
[2023-03-19 07:26] LABS: Hematocrit (blood only) 35.6 % (37.0-47.0); Hemoglobin 11.5 g/dl (12.0-16.0); Mean Corpuscular Hemoglobin 27.6 pg (25.0-34.0); Mean Corpuscular Hgb Conc 32.3 g/dL (32.0-36.0); Mean Corpuscular Volume 85.4 fL (80.0-100.0); Mean Platelet Volume 10.3 fL (9.4-12.4); Platelet Count 265 K/uL (130-400); RDW Coefficient of Variation 13.8 % (11.5-14.5); RDW Standard Deviation 42.6 fL (36.4-46.3); Red Blood Count 4.17 M/uL (4.20-5.40); White Blood Count 9.87 K/ul (4.8-10.8)
[2023-03-19 07:38] LABS: Albumin Level 3.9 gm/dl (3.4-5.0); BUN Creatinine Ratio 24.5 (10-20); Calcium 8.8 mg/dl (8.6-10.3); Creatinine Clr Calc Pharmacy 62.9 ml/min; Est GFR (African American) 65.5 ml/min; Est GFR (Non-African American) 56.5 ml/min; Phosphorus 4.2 mg/dl (2.5-4.9); Potassium 4.5 mmol/L (3.5-5.1)
[2023-03-19 07:49] LABS: Basophils # (auto) 0.01 K/uL (0.00-0.20); Basophils % (auto) 0.1 %; Immature Granulocytes # (auto) 0.03 K/uL (0.01-0.20); Immature Granulocytes % (auto) 0.3 %; Lymphocytes # (auto) 0.66 K/uL (1.20-3.40); Lymphocytes % (auto) 6.7 %; Monocytes # (auto) 0.12 K/uL (0.11-0.59); Monocytes % (auto) 1.2 %; Neutrophils # (auto) 9.05 K/uL (1.40-6.50); Neutrophils % (auto) 91.7 %; RBC Morphology Unremarkable
[2023-03-19] MEDS: CLOPIDOGREL BISULFATE 75 MG TAB PO SCH (08:02)
[2023-03-19] MEDS: METOPROLOL SUCC 50MG EXT REL TAB PO SCH (08:02)
[2023-03-19] MEDS: ASPIRIN 81 MG ECTAB PO SCH (08:02)
[2023-03-19] MEDS ORDERED: OLMESARTAN MEDOXOMIL 40 MG TAB PO SCH (09:00)
[2023-03-19] MEDS: LOSARTAN POTASSIUM 50 MG TAB PO SCH (09:39)
--- NOTE | 2023-03-19 10:48 | Orthopedic Consultation ---
Date of Consultation March 19, 2023 Assessment & Plan (1) Lower back pain: Assessment lumbar sprain strain. Plan at this time her MRI demonstrates a very subtle disc protrusion at L5-S1 but otherwise very healthy discs and neural anatomy upon review. I suspect this is simply a strain sprain phenomenon secondary to deconditioning that the past several weeks in light of her heart surgery. I recommend physical therapy if she fails to improve a possible consultation with pain management. History of Present Illness Reason for Consultation: Back pain Attending Physician: Clifford Sharma MD History of Present Illness This is a 67-year-old female who presents the emergency room with severe back pain. She states that last she is in the garden with her and done some modest amount of bleeding. She immediately noted some discomfort in her back that progressed over the course of the next several days to the point that she was unable to get out of bed secondary to back pain. She is status post stent placement and had done well postoperatively. She denies any numbness or tingling in lower extremities. Denies any gross strength deficits of the lower extremities. Allergies Allergy/AdvReac Type Severity Reaction Status Date / Time morphine Allergy Mild HIVES Verified 03/18/23 20:23 Home Medications Medication Instructions Recorded Confirmed Type melatonin 10 mg capsule 10 mg PO HS PRN Sleep 11/05/20 03/18/23 History hyoscyamine sulfate 0.125 mg 0.125 mg PO TID PRN dyspepsia #90 05/15/22 03/18/23 Rx sublingual tablet tabs dicyclomine 10 mg capsule 10 mg PO DAILY PRN Cramps 08/01/22 03/18/23 History tramadol 50 mg tablet 25 mg PO DAILY PRN breakthrough 09/13/22 03/18/23 Rx joint pain #10 tabs olmesartan 40 mg tablet 40 mg PO DAILY #90 tabs 01/17/23 03/18/23 Rx aspirin 81 mg tablet,delayed 81 mg PO QAM #90 tabs 03/02/23 03/18/23 Rx release atorvastatin 40 mg tablet 80 mg PO HS #90 tabs 03/02/23 03/18/23 Rx metoprolol succinate 50 mg 50 mg PO DAILY #30 tabs 03/02/23 03/18/23 Rx tablet,extended release 24 hr nitroglycerin 0.4 mg sublingual 0.4 mg sublingual Q5M PRN Chest 08/18/23 09/03/23 History tablet Pain clopidogrel 75 mg tablet (Plavix) 75 mg PO DAILY 03/18/23 03/18/23 History famotidine 10 mg tablet 0 mg PO DAILY 03/18/23 03/18/23 History Patient History Medical History (Updated 03/19/23 @ 01:34 by Mauri Galindo MD) B12 deficiency Breast cancer (~2016) Calcification of abdominal aorta on CT 03/2020 Chest pain Elevated troponin I level Gastroparesis GERD (gastroesophageal reflux disease) History of anesthesia reaction 2015 s/p Laparotomy experienced CHF symptoms. no problems currently. 2015 s/p vocal cord surgery/repair patient experienced pulmonary flash edema History of cancer of right breast Hyperlipidemia Hypertension Left ventricular hypertrophy Osteoarthritis Osteopenia Prediabetes SNHL (sensorineural hearing loss) Vocal cord nodule Surgical History (Updated 03/19/23 @ 01:34 by Mauri Galindo MD) H/O breast biopsy right H/O exploratory laparotomy Description: To repair bowel injury at time of laparoscopy for gallbladder. H/O laparoscopy exploratory Description: Diagnostic laparoscopy, running of the small bowel, laparoscopic cholecystectomy with cholangiogram 09/03/14 Dr. Rincon Repair Small bowel enterotomy 09/04/14 Dr. Rincon H/O partial mastectomy Right with lymph node removal H/O repair of left rotator cuff H/O shoulder surgery Right shoulder April 2010-rotator cuff repair History of colonoscopy History of ERCP History of esophagogastroduodenoscopy (EGD) History of foot surgery right foot-tendon repair History of incisional hernia repair Description: Repair of incisional hernia with 15cm surgimesh 11/30/15 Dr. Rincon Biomedical Electronics Technician Nando Islas PA-C History of nasal surgery History of throat surgery to repair vocal cord injury that she indured during the emergency laparotomy 2014. 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 She is alert and cooperative. She has reasonable strength testing. Sensory symmetric and intact. Results & Data Vital Signs (Past 12 Hours) Vital Signs Temp Pulse Pulse Resp BP Pulse Ox O2 Del Method 03/19/23 07:46 36.8 C 74 14 162/80 H 95 Room Air 03/19/23 00:01 Room Air 03/18/23 23:05 36.4 C L 59 L 18 164/78 H 97 Room Air (1) Lower back pain Back pain laterality: midline Chronicity: acute Sciatica presence: without sciatica Qualified Code(s): M54.50 - Low back pain, unspecified
[2023-03-19] MEDS ORDERED: FAMOTIDINE 20 MG TAB PO ONE (14:51)
--- NOTE | 2023-03-19 14:56 | Hospitalist Progress Note ---
Date of Service March 19, 2023 Assessment & Plan (1) Lower back pain: Plan: Due to L5-S1 disc protrusion. Continue parenteral steroid therapy. Narcotic pain control measures as needed. Appreciate orthopedic spine consultation. No surgical intervention at this time (2) Degenerative disc disease at L5-S1 level: Plan: Continue parenteral steroid therapy. No surgical intervention at this time (3) Lumbar disc herniation: Plan: Noted on MRI at the L5-S1 level. Continue parenteral steroid therapy. No surgical intervention planned at this time (4) S/P coronary artery stent placement: Plan: Stable. Continue current medical manage (5) Hypertension: Plan: Stable. Continue current medical manage (6) Hyperlipidemia: Plan: Stable. Continue current medical management (7) GERD (gastroesophageal reflux disease): Plan: Pepcid 20 mg twice a day Plan Anticipated discharge eventually back to her home. She probably will require a steroid tapering dose at the time of discharge. Admission and Anticipated Discharge Date Admission Date: March 18, 2023 Subjective Alert and oriented. She continues to have low back pain. She is currently receiving scheduled parenteral dexamethasone and using Dilaudid intravenously as needed. MRI of the lumbar spine reveals herniated disc at the L5-S1 level. Orthopedic spine consultation appreciated. No surgical intervention planned at this time. Review of Systems Review of Systems: Constitutional-no fever or chills ENT-no blurred vision, no double vision, no epistaxis, no sore throat Respiratory-no cough, no wheezing, no shortness of breath Cardiac-no palpitations, no chest pain, no syncope GI-no nausea, vomiting, diarrhea, melena, hematochezia -no urinary retention, no urinary incontinence, no dysuria, no hematuria Musculoskeletal-lumbar pain Skin-no bruising, no rashes, no pruritus Neuro-no isolated weakness, no paresthesia Psych-no depression, no anxiety Physical Exam Physical Exam: General-alert and oriented x3, no fevers, no chills HEENT-head atraumatic and normocephalic, pupils equal and reactive to light, extraocular muscles intact Neck-no lymphadenopathy or thyromegaly, trachea midline Chest-clear to auscultation percussion. No rales wheezing or rhonchi Cardiac-regular rate and rhythm, normal S1 and S2 Abdomen-normal bowel sounds, nontender, no hepatosplenomegaly Musculoskeletallumbar discomfort to palpation with limited range of motion Extremities-no cyanosis, clubbing, or edema Neuro-cranial nerves II through XII intact, motor and sensory function within normal limits, strength symmetrical , no focal deficits Psych-normal affect, normal mood Results & Data Results & Data Vital Signs (Past 12 Hours) Vital Signs Temp Pulse Resp BP Pulse Ox O2 Del Method 03/19/23 07:46 36.8 C 74 14 162/80 H 95 Room Air Laboratory Results 03/19/23 05:56 03/19/23 05:56 PG Care Time/CCT Total # of Minutes Spent Total Time Spent with Patient: Total time spent is greater than 50% in coordination of care (as documented) at patient's floor/unit and/or counseling patient: Coding Level of Care Code 55915 SUB INP/OBS CARE 3/50MIN Diagnoses Lower back pain M54.50 Back pain laterality: midline Chronicity: acute Sciatica presence: without sciatica Degenerative disc disease at L5-S1 level M51.37 Lumbar disc herniation M51.26 S/P coronary artery stent placement Z95.5 Hypertension I10 Hyperlipidemia E78.5 GERD (gastroesophageal reflux disease) K21.9 (1) Lower back pain Back pain laterality: midline Chronicity: acute Sciatica presence: without sciatica Qualified Code(s): M54.50 - Low back pain, unspecified
[2023-03-19] MEDS: ACETAMINOPHEN 325 MG TAB PO PRN (20:46)
[2023-03-19] MEDS: FAMOTIDINE 20 MG TAB PO SCH (20:46)
[2023-03-19] MEDS: MELATONIN 3 MG TAB PO PRN (20:46)
[2023-03-19] MEDS: ATORVASTATIN 40 MG TAB PO SCH (20:47)
[2023-03-19] MEDS ORDERED: LANTUS PER UNIT CHARGE SQ ONE (21:21)
[2023-03-20] MEDS: dexAMETHasone 6 MG in SYRINGE 0 ML IV SCH ×3 (05:48→21:32)
[2023-03-20 06:57] LABS: BUN Creatinine Ratio 35.9 (10-20); Calcium 8.8 mg/dl (8.6-10.3); Creatinine Clr Calc Pharmacy 69.7 ml/min; Est GFR (African American) 74.2 ml/min; Potassium 4.2 mmol/L (3.5-5.1)
[2023-03-20] MEDS: HYDROmorphone INJ 0.5 MG/0.5 ML SYR IV PRN (07:36)
[2023-03-20] MEDS: LOSARTAN POTASSIUM 50 MG TAB PO SCH (07:59)
[2023-03-20] MEDS: FAMOTIDINE 20 MG TAB PO SCH ×2 (07:59→20:27)
[2023-03-20] MEDS: CLOPIDOGREL BISULFATE 75 MG TAB PO SCH (07:59)
[2023-03-20] MEDS: METOPROLOL SUCC 50MG EXT REL TAB PO SCH (07:59)
[2023-03-20] MEDS: ASPIRIN 81 MG ECTAB PO SCH (07:59)
[2023-03-20] MEDS: POLYETHYLENE (MIRALAX) 17 GM PACK PO SCH (12:18)
--- NOTE | 2023-03-20 13:59 | Hospitalist Progress Note ---
Date of Service March 20, 2023 Assessment & Plan (1) Lower back pain: Plan: Due to L5-S1 disc protrusion. Currently on parenteral steroid therapy. Narcotic pain control measures as needed. Appreciate orthopedic spine consultation. No surgical intervention at this time (2) Degenerative disc disease at L5-S1 level: Plan: Continue parenteral steroid therapy. No surgical intervention at this time (3) Lumbar disc herniation: Plan: Noted on MRI at the L5-S1 level. Continue parenteral steroid therapy. No surgical intervention planned at this time (4) S/P coronary artery stent placement: Plan: Stable. Continue current medical manage (5) Hypertension: Plan: Stable. Continue current medical manage (6) Hyperlipidemia: Plan: Stable. Continue current medical management (7) GERD (gastroesophageal reflux disease): Plan: Pepcid 20 mg twice a day Plan To be determined. Physical therapy recommends rehab placement. She is hesitant to go home because of the stairs she would have to traverse to get to the second floor bathroom. Admission and Anticipated Discharge Date Admission Date: March 18, 2023 Subjective Alert and oriented. is at the bedside. She is hesitant to consider going home due to the stairs that she has to traverse to the second floor where that her bathroom is. Physical therapy recommends rehab placement. Orthopedic spine consultation states no indication for operative intervention at this time. She remains on parenteral steroid therapy. Review of Systems Review of Systems: Constitutional-no fever or chills ENT-no blurred vision, no double vision, no epistaxis, no sore throat Respiratory-no cough, no wheezing, no shortness of breath Cardiac-no palpitations, no chest pain, no syncope GI-no nausea, vomiting, diarrhea, melena, hematochezia -no urinary retention, no urinary incontinence, no dysuria, no hematuria Musculoskeletal-lumbar pain Skin-no bruising, no rashes, no pruritus Neuro-no isolated weakness, no paresthesia Psych-no depression, no anxiety Physical Exam Physical Exam: General-alert and oriented x3, no fevers, no chills HEENT-head atraumatic and normocephalic, pupils equal and reactive to light, extraocular muscles intact Neck-no lymphadenopathy or thyromegaly, trachea midline Chest-clear to auscultation percussion. No rales wheezing or rhonchi Cardiac-regular rate and rhythm, normal S1 and S2 Abdomen-normal bowel sounds, nontender, no hepatosplenomegaly Musculoskeletallumbar discomfort to palpation with limited range of motion Extremities-no cyanosis, clubbing, or edema Neuro-cranial nerves II through XII intact, motor and sensory function within normal limits, strength symmetrical , no focal deficits Psych-normal affect, normal mood Results & Data Results & Data Vital Signs (Past 12 Hours) Vital Signs Temp Pulse Resp BP Pulse Ox O2 Del Method 03/20/23 07:28 36.8 C 62 16 158/71 H 99 Room Air Laboratory Results 03/19/23 05:56 03/20/23 06:11 PG Care Time/CCT Total # of Minutes Spent Total Time Spent with Patient: Total time spent is greater than 50% in coordination of care (as documented) at patient's floor/unit and/or counseling patient: Coding Level of Care Code 28286 SUB INP/OBS CARE 2/35MIN Diagnoses Lower back pain M54.50 Back pain laterality: midline Chronicity: acute Sciatica presence: without sciatica Degenerative disc disease at L5-S1 level M51.37 Lumbar disc herniation M51.26 S/P coronary artery stent placement Z95.5 Hypertension I10 Hyperlipidemia E78.5 GERD (gastroesophageal reflux disease) K21.9 (1) Lower back pain Back pain laterality: midline Chronicity: acute Sciatica presence: without sciatica Qualified Code(s): M54.50 - Low back pain, unspecified
[2023-03-20] MEDS: traMADol HCL 50 MG TABLET PO PRN (14:05)
[2023-03-20] MEDS: ACETAMINOPHEN 325 MG TAB PO PRN (20:26)
[2023-03-20] MEDS: ATORVASTATIN 40 MG TAB PO SCH (20:27)
[2023-03-20] MEDS: MELATONIN 3 MG TAB PO PRN (21:32)
[2023-03-21] MEDS: ACETAMINOPHEN 325 MG TAB PO PRN ×2 (02:56→21:12)
[2023-03-21] MEDS: dexAMETHasone 6 MG in SYRINGE 0 ML IV SCH ×3 (05:28→21:08)
[2023-03-21] MEDS ORDERED: LIDOCAINE 5% 1 PATCH TD ONE ×2 (06:00→09:00)
[2023-03-21] MEDS ORDERED: Nursing to Pharmacy Communication SCH (06:15)
[2023-03-21] MEDS: traMADol HCL 50 MG TABLET PO PRN ×3 (07:45→20:22)
[2023-03-21 08:09] LABS: BUN Creatinine Ratio 36.1 (10-20); Calcium 8.9 mg/dl (8.6-10.3); Creatinine Clr Calc Pharmacy 77.3 ml/min; Est GFR (Non-African American) 72.5 ml/min; Potassium 4.5 mmol/L (3.5-5.1)
[2023-03-21] MEDS: FAMOTIDINE 20 MG TAB PO SCH ×2 (08:26→20:24)
[2023-03-21] MEDS: METOPROLOL SUCC 50MG EXT REL TAB PO SCH (08:26)
[2023-03-21] MEDS: LOSARTAN POTASSIUM 50 MG TAB PO SCH (08:27)
[2023-03-21] MEDS: POLYETHYLENE (MIRALAX) 17 GM PACK PO SCH (08:27)
[2023-03-21] MEDS: CLOPIDOGREL BISULFATE 75 MG TAB PO SCH (08:27)
[2023-03-21] MEDS: ASPIRIN 81 MG ECTAB PO SCH (08:27)
[2023-03-21] MEDS: amLODIPine BESYLATE 5 MG TAB PO SCH (11:51)
--- NOTE | 2023-03-21 13:43 | Discharge Summary ---
Date of Service March 21, 2023 Admission HPI Per Admitting Provider The patient is a 67-year-old female with a past medical history including CAD, status post RCA drug-eluting stent placement on 03-01-2023, B12 deficiency, prediabetes, LVH, breast cancer, hypertension, hyperlipidemia and GERD. She presents the emergency department with intractable low back pain, worsening over the past 4 days MRI lumbar spine shows a small broad-based posterior central disc protrusion at L5-S1. This abuts but does not displace the transiting bilateral S1 nerve roots Principal Diagnosis Muscular lumbar strain, known L5-S1 herniated nucleus pulposus, elevated blood pressure Discharge Exam General-alert and oriented x3, no fevers, no chills HEENT-head atraumatic and normocephalic, pupils equal and reactive to light, extraocular muscles intact Neck-no lymphadenopathy or thyromegaly, trachea midline Chest-clear to auscultation percussion. No rales wheezing or rhonchi Cardiac-regular rate and rhythm, normal S1 and S2 Abdomen-normal bowel sounds, nontender, no hepatosplenomegaly Musculoskeletallumbar discomfort to palpation with limited range of motion Extremities-no cyanosis, clubbing, or edema Neuro-cranial nerves II through XII intact, motor and sensory function within normal limits, strength symmetrical , no focal deficits Psych-normal affect, normal mood Discharge Data Allergies Allergy/AdvReac Type Severity Reaction Status Date / Time morphine Allergy Mild HIVES Verified 03/18/23 20:23 Consultations 03/18/23 20:55 ED Decision to Admit Stat 03/19/23 01:38 Consult Orthopedic Spine Surgery Routine Ordered Studies 03/18/23 14:32 MR lumbar spine wo con Stat Hospital Course (1) Lower back pain: Due to L5-S1 disc protrusion and lumbar strain. Currently on parenteral steroid therapy. Prednisone tapering dose at discharge. Narcotic pain control measures as needed. Appreciate orthopedic spine consultation. No surgical intervention at this time (2) Degenerative disc disease at L5-S1 level: Continue parenteral steroid therapy while hospitalized. Prednisone tapering dose at discharge. No surgical intervention at this time (3) Lumbar disc herniation: Noted on MRI at the L5-S1 level. Continue parenteral steroid therapy while hospitalized. Prednisone tapering dose at discharge. No surgical intervention planned at this time (4) S/P coronary artery stent placement: Stable. Continue current medical manage (5) Hypertension: Amlodipine added for better blood pressure control. Continue losartan and metoprolol. (6) Hyperlipidemia: Stable. Continue current medical management (7) GERD (gastroesophageal reflux disease): Pepcid 20 mg twice a day Plan [facility] today[facility] Total Time Total Time Spent Total Time Spent (In Minutes): 45 minutes Discharge Plan Discharge Items Patient Disposition: Transfer Inpatient Rehab Fac Reason For Visit: L5-S1 DISC HERNIATION, INTRACTABLE LBP Discharge Diagnosis: Lumbar pain from musculoskeletal strain and known L5-S1 herniated nucleus pulposus, uncontrolled hypertension Condition on Discharge: Fair Activity: Per Instructions section Activity Comment: As tolerated Non-emergency contact: Primary Care Provider Call non-emergency contact if: you have any medication questions and your symptoms worsen Follow-up/Referrals: Sarah Quach MD [Primary Care Provider] - Diet: Regular and Heart Healthy Addtl Attending Provider Instructions: Amlodipine has been added to blood pressure regimen. Pending Studies at Discharge: No Stand-Alone Forms: My [facility] Skilled Items Patient informed of condition?: Yes DNR: No Discharge Level of Care: Acute rehab Communicable Disease: No Discharge Prognosis: Stable Lines: None Urinary Catheter: No Medications and DC Order Prescriptions: New prednisone 10 mg tablet See Rx Instructions .ROUTE .COMPLEX Qty: 12 0RF Rx Instructions: 10 mg orally 3 times a day for 2 days, then 10 mg twice a day for 2 days, then 10 mg once a day for 2 days, then stop polyethylene glycol 3350 [Miralax] 17 gram Powder In Packet 17 g PO DAILY Qty: 0 0RF amlodipine [Norvasc] 5 mg Tablet 5 mg PO QAM Qty: 0 0RF Continued hyoscyamine sulfate 0.125 mg tablet, sublingual 0.125 mg PO TID PRN (Reason: dyspepsia) Qty: 90 1RF olmesartan 40 mg tablet 40 mg PO DAILY Qty: 90 1RF tramadol 50 mg tablet 25 mg PO DAILY PRN (Reason: breakthrough joint pain) Qty: 10 0RF melatonin 10 mg capsule 10 mg PO HS PRN (Reason: Sleep) dicyclomine 10 mg capsule 10 mg PO DAILY PRN (Reason: Cramps) famotidine 10 mg Tablet 0 mg PO DAILY clopidogrel [Plavix] 75 mg tablet 75 mg PO DAILY metoprolol succinate 50 mg tablet extended release 24 hr 50 mg PO DAILY Qty: 30 1RF atorvastatin 40 mg Tablet 80 mg PO HS Qty: 90 0RF aspirin 81 mg Tablet,Delayed Release (Dr/Ec) 81 mg PO QAM Qty: 90 0RF nitroglycerin 0.4 mg Tablet, Sublingual 0.4 mg sublingual Q5M PRN (Reason: Chest Pain) Discharge Orders: Discharge Order (Routine); Ordered 03/21/23 Ordered By: Clifford Sharma Admission Data Admit Date/Time: 03/18/23 21:39 Attending Provider: Clifford Sharma Admit Provider: Mauri Galindo Primary Care Provider: Sarah Quach Other Providers: Mauri Galindo ; Volodymyr Carl ; [facility] Coding Level of Care Code 55492 INP/OBS DISCH >30 MIN Diagnoses Lower back pain M54.50 Back pain laterality: midline Chronicity: acute Sciatica presence: without sciatica Degenerative disc disease at L5-S1 level M51.37 Lumbar disc herniation M51.26 S/P coronary artery stent placement Z95.5 Hypertension I10 Hyperlipidemia E78.5 GERD (gastroesophageal reflux disease) K21.9
--- NOTE | 2023-03-21 15:51 | Hospitalist Progress Note ---
Date of Service March 21, 2023 Assessment & Plan (1) Lower back pain: Plan: Due to L5-S1 disc protrusion and lumbar strain. Currently on parenteral steroid therapy. Prednisone tapering dose at discharge. Narcotic pain control measures as needed. Appreciate orthopedic spine consultation. No surgical intervention at this time (2) Degenerative disc disease at L5-S1 level: Plan: Continue parenteral steroid therapy while hospitalized. Prednisone tapering dose at discharge. No surgical intervention at this time (3) Lumbar disc herniation: Plan: Noted on MRI at the L5-S1 level. Continue parenteral steroid therapy while h ospitalized. Prednisone tapering dose at discharge. No surgical intervention planned at this time (4) S/P coronary artery stent placement: Plan: Stable. Continue current medical manage (5) Hypertension: Plan: Amlodipine added for better blood pressure control. Continue losartan and metoprolol. (6) Hyperlipidemia: Plan: Stable. Continue current medical management (7) GERD (gastroesophageal reflux disease): Plan: Pepcid 20 mg twice a day Plan Discharge to [facility] tomorrow morning, March 22 Admission and Anticipated Discharge Date Admission Date: March 18, 2023 Subjective Alert and oriented. No new problems. We were hopeful for discharge to [facility] today but apparently they cannot get transportation arranged until tomorrow morning. Amlodipine added for better blood pressure control. Review of Systems Review of Systems: Constitutional-no fever or chills ENT-no blurred vision, no double vision, no epistaxis, no sore throat Respiratory-no cough, no wheezing, no shortness of breath Cardiac-no palpitations, no chest pain, no syncope GI-no nausea, vomiting, diarrhea, melena, hematochezia -no urinary retention, no urinary incontinence, no dysuria, no hematuria Musculoskeletal-lumbar pain Skin-no bruising, no rashes, no pruritus Neuro-no isolated weakness, no paresthesia Psych-no depression, no anxiety Physical Exam Physical Exam: General-alert and oriented x3, no fevers, no chills HEENT-head atraumatic and normocephalic, pupils equal and reactive to light, extraocular muscles intact Neck-no lymphadenopathy or thyromegaly, trachea midline Chest-clear to auscultation percussion. No rales wheezing or rhonchi Cardiac-regular rate and rhythm, normal S1 and S2 Abdomen-normal bowel sounds, nontender, no hepatosplenomegaly Musculoskeletallumbar discomfort to palpation with limited range of motion Extremities-no cyanosis, clubbing, or edema Neuro-cranial nerves II through XII intact, motor and sensory function within normal limits, strength symmetrical , no focal deficits Psych-normal affect, normal mood Results & Data Results & Data Vital Signs (Past 12 Hours) Vital Signs Temp Pulse Pulse Pulse Resp BP Pulse Ox 03/21/23 14:43 36.8 C 60 18 160/70 H 94 03/21/23 14:37 36.5 C 59 L 55 L 60 20 189/79 H 96 03/21/23 07:57 36.5 C 55 L 60 20 189/79 H 96 O2 Del Method 03/21/23 14:43 Room Air 03/21/23 14:37 03/21/23 07:57 Room Air Laboratory Results 03/19/23 05:56 03/21/23 07:05 PG Care Time/CCT Total # of Minutes Spent Total Time Spent with Patient: Total time spent is greater than 50% in coordination of care (as documented) at patient's floor/unit and/or counseling patient: Coding Level of Care Code 85571 SUB INP/OBS CARE 3/50MIN Diagnoses Lower back pain M54.50 Back pain laterality: midline Chronicity: acute Sciatica presence: without sciatica Degenerative disc disease at L5-S1 level M51.37 Lumbar disc herniation M51.26 S/P coronary artery stent placement Z95.5 Hypertension I10 Hyperlipidemia E78.5 GERD (gastroesophageal reflux disease) K21.9 (1) Lower back pain Back pain laterality: midline Chronicity: acute Sciatica presence: without sciatica Qualified Code(s): M54.50 - Low back pain, unspecified
[2023-03-21] MEDS: ATORVASTATIN 40 MG TAB PO SCH (20:22)
[2023-03-21] MEDS: MELATONIN 3 MG TAB PO PRN (21:12)
[2023-03-22] MEDS: dexAMETHasone 6 MG in SYRINGE 0 ML IV SCH (06:05)
[2023-03-22 07:35] LABS: BUN Creatinine Ratio 40.5 (10-20); Calcium 8.8 mg/dl (8.6-10.3); Creatinine Clr Calc Pharmacy 81.2 ml/min; Est GFR (African American) 89.1 ml/min; Est GFR (Non-African American) 76.9 ml/min; Potassium 4.5 mmol/L (3.5-5.1)
[2023-03-22] MEDS: LOSARTAN POTASSIUM 50 MG TAB PO SCH (08:01)
[2023-03-22] MEDS: CLOPIDOGREL BISULFATE 75 MG TAB PO SCH (08:01)
[2023-03-22] MEDS: METOPROLOL SUCC 50MG EXT REL TAB PO SCH (08:01)
[2023-03-22] MEDS: ASPIRIN 81 MG ECTAB PO SCH (08:01)
[2023-03-22] MEDS: amLODIPine BESYLATE 5 MG TAB PO SCH (08:02)
[2023-03-22] MEDS: POLYETHYLENE (MIRALAX) 17 GM PACK PO SCH (08:02)
[2023-03-22] MEDS: FAMOTIDINE 20 MG TAB PO SCH (08:05)
--- NOTE | 2023-03-22 09:58 | Discharge Summary ---
Date of Service March 22, 2023 Admission HPI Per Admitting Provider The patient is a 67-year-old female with a past medical history including CAD, status post RCA drug-eluting stent placement on 03-01-2023, B12 deficiency, prediabetes, LVH, breast cancer, hypertension, hyperlipidemia and GERD. She presents the emergency department with intractable low back pain, worsening over the past 4 days MRI lumbar spine shows a small broad-based posterior central disc protrusion at L5-S1. This abuts but does not displace the transiting bilateral S1 nerve roots Principal Diagnosis Lumbar strain, known L5-S1 HNP, poorly controlled hypertension Discharge Exam General-alert and oriented x3, no fevers, no chills HEENT-head atraumatic and normocephalic, pupils equal and reactive to light, extraocular muscles intact Neck-no lymphadenopathy or thyromegaly, trachea midline Chest-clear to auscultation percussion. No rales wheezing or rhonchi Cardiac-regular rate and rhythm, normal S1 and S2 Abdomen-normal bowel sounds, nontender, no hepatosplenomegaly Musculoskeletallumbar discomfort to palpation with limited range of motion Extremities-no cyanosis, clubbing, or edema Neuro-cranial nerves II through XII intact, motor and sensory function within normal limits, strength symmetrical , no focal deficits Psych-normal affect, normal mood Discharge Data Allergies Allergy/AdvReac Type Severity Reaction Status Date / Time morphine Allergy Mild HIVES Verified 03/18/23 20:23 Consultations 03/18/23 20:55 ED Decision to Admit Stat 03/19/23 01:38 Consult Orthopedic Spine Surgery Routine Ordered Studies 03/18/23 14:32 MR lumbar spine wo con Stat Hospital Course (1) Lower back pain: Due to L5-S1 disc protrusion and lumbar strain. While hospitalized she received parenteral steroid therapy. Prednisone tapering dose at discharge. She prefers tramadol for pain control. Appreciate orthopedic spine consultation. No surgical intervention at this time (2) Degenerative disc disease at L5-S1 level: Treated with parenteral steroid therapy while hospitalized. Prednisone tapering dose at discharge. No surgical intervention at this time (3) Lumbar disc herniation: Noted on MRI at the L5-S1 level. Continue parenteral steroid therapy while hospitalized. Prednisone tapering dose at discharge. No surgical intervention planned at this time (4) S/P coronary artery stent placement: Stable. Continue current medical manage (5) Hypertension: Amlodipine added for better blood pressure control. Continue losartan and metoprolol. She states that she has amlodipine prescription at home from previous use (6) Hyperlipidemia: Stable. Continue current medical management (7) GERD (gastroesophageal reflux disease): Pepcid 20 mg twice a day Plan She has improved to the point where she feels she can go home with home health services and not need IPR placement. She will be discharged home today, March 22 Total Time Total Time Spent Total Time Spent (In Minutes): 45-minute Discharge Plan Discharge Items Patient Disposition: Transfer Inpatient Rehab Fac Reason For Visit: L5-S1 DISC HERNIATION, INTRACTABLE LBP Discharge Diagnosis: Lumbar pain from musculoskeletal strain and known L5-S1 herniated nucleus pulposus, uncontrolled hypertension Condition on Discharge: Fair Activity: Per Instructions section Activity Comment: As tolerated Non-emergency contact: Primary Care Provider Call non-emergency contact if: you have any medication questions and your symptoms worsen Follow-up/Referrals: Sarah Quach MD [Primary Care Provider] - Diet: Regular and Heart Healthy Addtl Attending Provider Instructions: Amlodipine has been added to blood pressure regimen. Pending Studies at Discharge: No Stand-Alone Forms: My [facility] Skilled Items Patient informed of condition?: Yes DNR: No Discharge Level of Care: Acute rehab Communicable Disease: No Discharge Prognosis: Stable Lines: None Urinary Catheter: No Medications and DC Order Prescriptions: New polyethylene glycol 3350 [Miralax] 17 gram Powder In Packet 17 g PO DAILY Qty: 0 0RF amlodipine [Norvasc] 5 mg Tablet 5 mg PO QAM Qty: 0 0RF prednisone 10 mg tablet See Rx Instructions .ROUTE .COMPLEX Qty: 12 0RF Rx Instructions: 10 mg orally 3 times a day for 2 days, then 10 mg twice a day for 2 days, then 10 mg once a day for 2 days, then stop prednisone 10 mg tablet See Rx Instructions .ROUTE .COMPLEX Qty: 12 0RF Rx Instructions: 10 mg orally 3 times a day for 2 days, then 10 mg twice a day for 2 days, then 10 mg once a day for 2 days, then stop tramadol 50 mg tablet 50 mg PO Q6H PRN (Reason: pain) Qty: 20 0RF Continued hyoscyamine sulfate 0.125 mg tablet, sublingual 0.125 mg PO TID PRN (Reason: dyspepsia) Qty: 90 1RF olmesartan 40 mg tablet 40 mg PO DAILY Qty: 90 1RF tramadol 50 mg tablet 25 mg PO DAILY PRN (Reason: breakthrough joint pain) Qty: 10 0RF melatonin 10 mg capsule 10 mg PO HS PRN (Reason: Sleep) dicyclomine 10 mg capsule 10 mg PO DAILY PRN (Reason: Cramps) famotidine 10 mg Tablet 0 mg PO DAILY clopidogrel [Plavix] 75 mg tablet 75 mg PO DAILY metoprolol succinate 50 mg tablet extended release 24 hr 50 mg PO DAILY Qty: 30 1RF atorvastatin 40 mg Tablet 80 mg PO HS Qty: 90 0RF aspirin 81 mg Tablet,Delayed Release (Dr/Ec) 81 mg PO QAM Qty: 90 0RF nitroglycerin 0.4 mg Tablet, Sublingual 0.4 mg sublingual Q5M PRN (Reason: Chest Pain) Discharge Orders: Discharge Order (Routine); Ordered 03/22/23 Ordered By: Clifford Shaw/Other Patient Handouts: Anatomy of a Normal Spine, Common Spine and Disk Problems, Hypertension Dc Admission Data Admit Date/Time: 03/18/23 21:39 Attending Provider: Clifford Sharma Admit Provider: Mauri Galindo Primary Care Provider: Sarah Quach Other Providers: Mauri Galindo ; Volodymyr Carl ; [facility] ; [facility] Other Interventions: Discharge Summary Assessment (RN) Last Done: 03/21/23 14:37 Coding Level of Care Code 99061 INP/OBS DISCH >30 MIN Diagnoses Lower back pain M54.50 Back pain laterality: midline Chronicity: acute Sciatica presence: without sciatica Degenerative disc disease at L5-S1 level M51.37 Lumbar disc herniation M51.26 S/P coronary artery stent placement Z95.5 Hypertension I10 Hyperlipidemia E78.5 GERD (gastroesophageal reflux disease) K21.9
[2023-03-22] MEDS: ACETAMINOPHEN 325 MG TAB PO PRN (10:19)
== END 2023-03-22 10:53 | disposition home health service (06) | DRG 552 ==
LOC: ED 14:16 → SUATTDRO 21:39 → 3W 21:39